=== PATIENT | female | born 1945 | race Caucasian/White ===

== ENCOUNTER 2020-01-23 08:31 | Outpatient (CLI) | payer MEDICARE, SELFPAY ==
--- NOTE | ~2020-01-23 | CT_ITS ---
EXAMINATION: CT chest wo con DATE: 01/23/2020 09:25 INDICATION: Lung nodule TECHNIQUE: Computed tomography (CT) of the chest was performed without intravenous contrast. The dose -length product was 267.65 mGy-cm. Automated exposure control and iterative reconstruction technique were employed. COMPARISON: CT dated 02/12/2019 FINDINGS: Heart size normal. There is mild atherosclerosis. Small hiatal hernia. No significant pleur al or pericardial effusion. There are cholecystectomy clips. No thoracic lymphadenopathy. There are e mphysematous changes with bulla in the lung bases. There is chronic lower lobe atelectasis/scarring. Calcified granuloma right middle lobe. There is extensive bronchial wall thickening most significant in the lower lobes, consistent with chronic bronchitis. There are chronic burst fractures of T6-T8 wi th associated kyphosis. No pneumothorax. IMPRESSION: 1. Chronic lower lobe atelectasis/scarring. 2: Persistent bronchial wall thickening, consistent with chronic bronchitis. 3: Emphysema. Reviewed, dictated and finalized at location A. RUMENT AND ELECTRICAL TECHNICIAN
--- NOTE | ~2020-01-23 | DEXA_ITS ---
Bone Density Report Name: Ankita Hernandez Age: 74 Sex: Female Ethnicity: White Date of : 1945 Indication: postmenopausal; height loss; prior fracture; rheumatoid arthritis; Referring Provider: Moriah Flaherty Study: Bone densitometry was performed. Exam Date: January 23, 2020 Accession number: [id number] Bone Density: Region BMD T-score Z-score Classification AP Spine (L1-L4) 0.962 -0.8 1.5 Normal Femoral Neck (Left) 0.778 -0.6 1.3 Normal Total Hip (Left) 0.915 -0.2 1.4 Normal Total Hip Bilateral Avg 0.869 -0.6 1.0 Normal Femoral Neck (Right) 0.757 -0.8 1.1 Normal Total Hip (Right) 0.822 -1.0 0.7 Normal World Health Organization criteria for BMD impression classify patients as: Normal (T-score at or above -1.0), Osteopenia (T-score between -1.0 and -2.5), or Osteoporosis (T-score at or below -2.5). 10-year Fracture Risk: FRAX not reported because: All T-scores for Spine Total, Hip Total, Femoral Neck at or above -1.0 Previous Exams: Region Exam Age BMD T-score BMD Change BMD Change Date g/cm2 vs Baseline vs Previous AP Spine(L1-L4) 01/23/2020 74 0.962 -0.8 -0.242(-20.1%) -0.242(-20.1%) 10/19/2001 56 1.204 1.4 Total Hip(Left) 01/23/2020 74 0.915 -0.2 -0.150(-14.1%) -0.150(-14.1%) 10/19/2001 56 1.065 1.0 Total Hip(Right) 01/23/2020 74 0.822 -1.0 -0.218(-21.0%) -0.218(-21.0%) 10/19/2001 56 1.040 0.8 *Denotes significance at 95% confidence level, LSC for AP Spine = 0.022 g/cm2, LSC for Total Hip = 0.027 g/cm2 Clinical Information Provided by Patient: Has had a low trauma fracture Has rheumatoid arthritis Patient maximum height was 67 No regular weight bearing exercise Drinks caffeinated beverages Onset of menses at age 16 Number of children 4 Impression: The patient has normal bone mass. The patient has risk factors, including: previous fracture. No significant bone loss was observed. Discussion: BONE DENSITY IS ABOVE THE MINIMUM DESIRABLE LEVEL AT ALL SKELETAL SITES TESTED. This patient?s bone mineral density is above the minimum desirable level (T-score -1.0 or better) at all sites measured. The patient should follow a healthful lifestyle (good nutrition with adequate calcium and vitamin D, and appropriate weight-bearing exercise). Follow-Up: Consider repeating this study in 5 years or sooner if there is some new clinical indication. Reported by: [facility] on 01/23/2020 8:57:00 AM.
== END 2020-01-23 08:32 | disposition home or self-care (01) ==
LOC: ANHIMG 08:39
PROVIDERS: PCP Family Medicine Adolescent Medicine
DX: R91.1 Solitary pulmonary nodule (principal); Z51.81 Encounter for therapeutic drug level monitoring; R06.02 Shortness of breath; Z79.1 Long term (current) use of non-steroidal anti-inflammatories (NSAID); Z79.01 Long term (current) use of anticoagulants; M85.89 Other specified disorders of bone density and structure, multiple sites; K44.9 Diaphragmatic hernia without obstruction or gangrene; J43.9 Emphysema, unspecified; S22.051A Stable burst fracture of T5-T6 vertebra, initial encounter for closed fracture; S22.061A Stable burst fracture of T7-T8 vertebra, initial encounter for closed fracture
CPT/HCPCS: 71250; 77080

== ENCOUNTER 2020-02-28 14:03 | Outpatient (CLI) | payer MEDICARE, SELFPAY ==
--- NOTE | 2020-02-28 | ECHO_ITS ---
Patient Info Name: Ankita Hernandez Age: 74 years : 1945 Gender: Female Ht: 65 in Wt: 165 lbs BSA: 1.87 m2 HR: 81 bpm BP: 151 / 98 mmHg Heart Rhythm: Sinus Rhythm Technical Quality: Fair Exam Date: 02/28/2020 2:40 PM Exam Location: [facility] Patient Status: Outpatient Admit Date: 02/28/2020 Staff Ordering Physician: Moriah Flaherty MD Patient Account Representative: Rosalee Stuart RDCS Attending Provider: Moriah Flaherty MD Exam Type: CA echo doppler color flow Study Info Indications - sob Complete two-dimensional, color flow and Doppler transthoracic echocardiogram is performed. Summary 1. Complete two-dimensional, color flow and Doppler transthoracic echocardiogram is performed. 2. No pulmonary hypertension, estimated pulmonary arterial systolic pressure is 29 mmHg. 3. Normal left ventricular size, thickness and function with good systolic function of all segments. Estimated ejection fraction was 55-60%. Visual ejection fraction was 62%. Grade 1 diastolic dysfunction is present. 4. Calcified aortic valve with no significant stenosis. 5. Normal sinus rhythm. Left Ventricle Left ventricular chamber dimension is normal. Left ventricular systolic function is normal, estimated at 55-60%. There is no increased left ventricular wall thickness. Left ventricular septal wall motion is normal. The left ventricular diastolic function is grade I diastolic dysfunction. Right Ventricle Right ventricular chamber dimension is normal. Right ventricular systolic function is normal. Left Atria Left atrial chamber dimension is normal. Right Atria Right atrial chamber dimension is normal. Aortic Valve The aortic valve is trileaflet. There is no aortic valve sclerosis. There is no aortic valve stenosis. There is no aortic valve regurgitation. There is mild aortic valve calcification. Pulmonic Valve The pulmonic valve is normal. There is no pulmonic valve stenosis. There is no pulmonic regurgitation. Mitral Valve The mitral valve has thickened leaflets. There is no mitral valve stenosis. There is trace mitral valve regurgitation. Tricuspid Valve The tricuspid valve leaflets are normal. There is no significant tricuspid valve stenosis. There is trace tricuspid valve regurgitation. No pulmonary hypertension, estimated pulmonary arterial systolic pressure is 29 mmHg. Pericardium/Pleural The pericardium appears normal. There is no pericardial effusion. Inferior Vena Cava Normal inferior vena cava with >50% collapse upon inspiration consistent with Empty right atrial pressure, 10 mmHg. Aorta The aortic root size at the sinus of Valsalva is normal. The prox ascending aorta size is normal. Left Ventricular Outflow Tract Name Value Normal LVOT 2D LVOT Diameter 2.0 cm LVOT Doppler LVOT Peak Gradient 3 mmHg LVOT Mean Gradient 2 mmHg LVOT VTI 19 cm LVOT VTI/AV VTI Ratio 0.8 LVOT Stroke Volume 58 ml LVOT CO
--- NOTE | 2020-02-29 14:08 | P.PCNPFT_ITS ---
PFT Interpretation This is a pulmonary function test with spirometry, plethysmography and diffusing capacity. The test was performed and results interpreted in accordance with the 2019 and 2005 ATS/ERS Task Force guidelines respectively using the Dion/Mahad reference equations. Findings: Spirometry: The contour of the inspiratory and expiratory flow tracing are no rmal. The FVC is 1.95 L, 67% predicted. The FEV1 is 1.56 L, 76% predicted. The FEV1: FVC ratio was 80%. Plethysmography: The total lung capacity is 3.31 L, 66% predicted. The functional residual capacity is 1.75 L, 63% predicted. The residual volume is 1.28 L, 63% predicted. Diffusing capacity: The absolute diffusion capacity 7.0, 34% predicted. The diffusing capacity corrected for alveolar volume is 2.47, 70% predicted. Impression: There is a mild restrictive ventilatory abnormality. The spirometry is normal without evidence of an obstructive abnormality. The absolute diffusing capacity is severely decreased and remains mildly decreased when corrected for alveolar volume. There are no prior studies for comparison
== END 2020-02-28 14:04 | disposition home or self-care (01) ==
PROVIDERS: Family Provider Family Medicine Adolescent Medicine; PCP Family Medicine Adolescent Medicine
DX: R06.02 Shortness of breath (principal); R91.1 Solitary pulmonary nodule; I35.8 Other nonrheumatic aortic valve disorders
CPT/HCPCS: 93306; 94375; 94726; 94729

== ENCOUNTER 2020-09-07 09:04 | Emergency (ER) | payer MEDICARE, SELFPAY ==
--- NOTE | ~2020-09-07 | CT_ITS ---
EXAMINATION: CT abdomen pelvis w con DATE: 09/07/2020 12:43 INDICATION: Left lower quadrant abdominal pain. TECHNIQUE: Computed tomography (CT) of the abdomen and pelvis was performed with 100 mL Omnipaque-350 intravenous contrast. Automated exposure control and iterative reconstruction technique were employe d. The dose-length product was 1053.59 mGy-cm. COMPARISON: None FINDINGS: Bronchiectasis and mild emphysema at the bilateral lower lungs. Unchanged peripheral atelectasis/scar ring the bilateral lower lobes. Heart size is normal. Atherosclerotic coronary artery calcific lesion s. No pericardial or pleural effusion. Small sliding-type hiatal hernia. Cholecystectomy clips at the gallbladder fossa. Focal hepatic steatosis at the ligamentum teres. Spleen, bilateral adrenal glands and left kidney are normal. 5 mm cyst at the lower pole of the right kidney. 9 mm cystic lesion at t he tail of the pancreas. A few scattered colonic diverticula without adjacent inflammatory change to suggest diverticulitis. No bowel obstruction. Ventral diastases. Bladder, uterus and bilateral adnexa are unremarkable. No free intraperitoneal gas or fluid. No pathologically enlarged abdominal or pelv ic lymphadenopathy. Diffuse osteopenia. Moderate thoracic spondylosis. IMPRESSION: 1. No acute intra-abdominal/pelvic process. 2. Small sliding-type hiatal hernia. 3. Mild emphysema, bronchiectasis and atelectasis at the lung bases. 4. 9 mm cystic lesion at the tail of the pancreas without evident enhancing solid soft tissue compone nt. Recommend two-year follow-up with pre and postcontrast CT or MRI. Reviewed, dictated and finalized at location A. IMPRESSION: 1. No acute intra-abdominal/pelvic process. 2. Small sliding-type hiatal hernia. 3. Mild emphysema, bronchiectasis and atelectasis at the lung bases. 4. 9 mm cystic lesion at the tail of the pancreas without evident enhancing blayne id soft tissue component. Recommend two-year follow-up with pre and postcontras t CT or MRI.
--- NOTE | ~2020-09-07 | XR_ITS ---
EXAMINATION: XR chest 1V portable DATE: 09/07/2020 10:26 INDICATION: Hypoxia TECHNIQUE: frontal view of the chest was obtained. COMPARISON: Chest radiograph dated 08/24/[address] dated 01/23/2020 FINDINGS: New opacities in the retrocardiac left lower lobe. Thin-walled pneumatocele at the lateral left lower lung zone. No pleural effusion or pneumothorax. Heart size is normal. Cholecystectomy clips in right upper quadrant. Chronic midthoracic compression fractures. IMPRESSION: 1. New opacities in the left lower lung zone which could represent pneumonia, atelectasis or asymmetr ic mild pulmonary edema. Reviewed, dictated and finalized at location A. IMPRESSION: 1. New opacities in the left lower lung zone which could represent pneumonia, a telectasis or asymmetric mild pulmonary edema.
[2020-09-07 09:02] VITALS: BP 158/80; PULSE 114; RESP 30; TEMP 36.4; O2SAT 84
--- NOTE | 2020-09-07 09:10 | ECG_ITS ---
Measurements Intervals [place] Rate: 113 P: -5 FL: 138 QRS: 21 QRSD: 84 T: 1 QT: 312 QTc: 429 Interpretive Statements SINUS TACHYCARDIA BORDERLINE ST-T WAVE ABNORMALITY- INFERIOR LEADS BASELINE ARTIFACT- I, III, AVR, AVL ABNORMAL ECG Electronically Signed On 09-07-2020 11:46:20 CDT by Ponce Rodriguez D.O.
--- NOTE | 2020-09-07 09:24 | PC.NURSE ---
pt states Get me water right now! Informed pt she can not have water per EDP until test complete due to n/v. Pt took nasal cannula off. When RN attempt to put nasal cannula on pt smacked RN hand. States she will not wear O2. Informed pt need for o2. States i know but I wont till you give me water. Pt refuses to wear mask. Informed pt risks to staff due to pt being positive for COVID. Pt states i dont care. Give me water.
--- NOTE | 2020-09-07 09:42 | PC.NURSE ---
pt alert and oriented x4, answered all questions appropriately. Took cardiac monitor technician and nasal cannula off. informed pt importance of monitoring and 02. pt allowed me apply o2 via nasal cannula and place back on monitor. pt then yelled, now get me water.! pt refuses to get cxr again until she is given water
[2020-09-07 09:45] VITALS: BP 130/70; PULSE 109; RESP 32; O2SAT 95
[2020-09-07 10:08] LABS: Basophils Percent Auto 0.2 % (0.2-1.2); Eosinophils Percent Auto 0.2 % (0-4.4); Hematocrit 36.9 % (37.0-47.0); Hemoglobin 10.7 g/dL (12.0-15.0); Immature Granulocyte Absolute 0.06 K/mm3 (0.00-0.031); Immature Granulocyte Percent A 0.7 % (0-0.5); Lymphocytes Absolute Auto 1.56 K/mm3 (0.9-3.2); Lymphocytes Percent Auto 17.9 % (18.3-44.2); Mean Corpuscular Hemoglobin 21.2 pg (26-34); Mean Corpuscular Volume 73.1 fl (80-100); Mean Platelet Volume 8.8 fl (7.4-10.4); Monocytes Absolute Auto 0.5 K/mm3 (0.1-0.6); Monocytes Percent Auto 5.8 % (2.6-8.5); Neutrophils Absolute Auto 6.6 K/mm3 (1.3-6.7); Neutrophils Percent Auto 75.2 % (45.5-73.1); Platelet Count Result 297 k/mm3 (150-375); Red Blood Count 5.05 M/mm3 (4.2-5.4); Red Cell Distribution Width 19.9 % (11.5-14.5); White Blood Count 8.7 K/mm3 (4.5-10.0)
[2020-09-07 10:18] VITALS: BP 151/79; PULSE 112; RESP 30; O2SAT 95
[2020-09-07 10:21] LABS: Hypochromasia 1+ (NORMAL); Platelet Estimate Adequate (Adequate)
[2020-09-07 10:22] LABS: Anisocytosis 1+ (NORMAL); Ovalocytes 1+ (NORMAL)
[2020-09-07 10:29] LABS: Alanine Aminotransferase 25 U/L (4-35); Albumin Level 3.2 g/dL (3.5-5.1); Alkaline Phosphatase 65 U/L (38-126); Anion Gap 9 mmol/L (8-16); Aspartate Amino Transferase 53 U/L (14-36); Bilirubin,Total 0.4 mg/dL (0.2-1.3); Blood Urea Nitrogen 16 mg/dL (7-17); Carbon Dioxide 22 mmol/L (22-30); Chloride 99 mmol/L (98-107); Estimated CRCL calculation 48 ml/min; Estimated Glomerular Filt Rate > 60; Glucose 139 mg/dL (65-110); Lipase 146 U/L (23-300); Potassium 3.8 mmol/L (3.4-5.0); Sodium 130 mmol/L (137-145)
[2020-09-07] MEDS: SODIUM CHLORIDE 0.9% IV 1,000 ML 999 ML IV CONT (10:59)
[2020-09-07 11:08] VITALS: BP 143/77; PULSE 106; RESP 30; O2SAT 95
[2020-09-07 11:10] LABS: Alveolar/Arterial O2 Gradient 64.8 mmHg; Base Excess ABG -2.2 mEq/l (+/-2.0); Carboxyhemoglobin 0.3 % THb (0-2.0); Device NASAL CANNULA; Fractional Inspired Oxygen 28 %; HCO3 ABG 21.7 mEq/l (22.0-26.0); Methemoglobin ABG 0.2 %THb (0-1.5); Modified Allen's Test Pass; Oxygen Content ABG 15.5 %vol (16.0-22.0); Oxygen Saturation ABG 97.4 % (95.0-100.0); Oxyhemoglobin 96.5 % THb (90.0-100.0); PCO2 ABG 34.3 mmHg (35.0-45.0); PO2 ABG 94.4 mmHg (80.0-100.0); PO2 FiO2 Ratio Arterial Blood 3.37 %; Site Drawn LEFT RADIAL; Total Hemoglobin 11.3 g/dL (12.0-18.0)
[2020-09-07 11:24] LABS: Lactic Acid Reflex 1.4 mmol/L (0.7-2.1)
--- NOTE | 2020-09-07 12:56 | ED.GENADULT ---
HPI - General Adult General Chief complaint: Abdominal Pain Stated complaint: low back pain & abd pain Time Seen by Provider: 09/07/20 10:16 Source: patient, EMS and RN notes reviewed Mode of arrival: EMS Limitations: no limitations History of Present Illness HPI narrative: Patient is a 75-year-old female who presents with cough abdominal pain over the last several days she notes that her is at home and has positive Covid she and her are both fully vaccinated she notes nonproductive cough as well as had an emesis of emesis and abdominal discomfort. Denies rectal bleeding or hematemesis Related Data Allergies Allergy/AdvReac Type Severity Reaction Status Date / Time bacitracin Allergy Unknown OPHTHALMIC Verified 09/07/20 09:16 gramicidin D Allergy Unknown OPHTHALMIC Verified 09/07/20 09:16 neomycin Allergy Unknown OPHTHALMIC Verified 09/07/20 10:50 polymyxin B Allergy Unknown OPHTHALMIC Verified 09/07/20 09:16 tobramycin Allergy Unknown Unknown Verified 09/07/20 10:50 Review of Systems Review of Systems: All systems reviewed & are unremarkable except as noted in HPI and below PMFSH Past Medical History Medical History (Updated 09/07/20 @ 13:55 by Usman Amaya PA-C) Disability Legally blind Obesity Social History Social History (Updated 09/07/20 @ 12:57 by Usman Amaya PA-C) Smoking status: Never smoker Gender identity (if verbalized by the patient): Female Exam Narrative: GENERAL: Well-appearing, well-nourished, and in no acute distress. HEAD: Normocephalic, atraumatic. EYES: PERRLA and EOMI. ENT: Nares clear, no rhinorrhea or epistaxis. Mucous membranes dry. NECK: Supple. No adenopathy or masses. CHEST: Clear to auscultation. No respiratory distress. No wheezes rales or rhonchi HEART: Regular rate and rhythm. No murmur heard. Normal peripheral pulses. ABDOMEN: Soft, left lower quadrant tenderness to palpation, nondistended EXTREMITIES: Normal range of motion. No edema. SKIN: Warm, dry, no rash. NEURO: No focal deficits. Alert and oriented x3. Cranial nerves II through XII grossly intact PSYCH: Normal mood and affect. Course Course Emergency Course: Patient in the room no distress aware of case findings treatment plan diagnosis felt appropriate for outpatient reevaluation discussion was made with primary care who will follow the patient acutely family will also assess she is afebrile nontoxic-appearing no distress and felt appropriate for outpatient reevaluation has been provided with reasons to return. Patient refusing to be on the monitor have further evaluation at this time Consultations Consultation #1: Discussed case with primary care who will follow up with the patient on an outpatient basis Date: 09/07/20 Time: 13:53 Vital Signs Vital signs: Vital Signs Temperature 97.6 F 09/07/20 09:02 Pulse Rate 114 H 09/07/20 09:02 Respiratory Rate 30 H 09/07/20 09:02 Blood Pressure 158/80 H 09/07/20 09:02 Pulse Oximetry 84 L 09/07/20 09:02 Temperature 97.6 F 09/07/20 09:02 Pulse Rate 106 H 09/07/20 11:08 Respiratory Rate 30 H 09/07/20 11:08 Blood Pressure 143/77 H 09/07/20 11:08 Pulse Oximetry 95 09/07/20 11:08 Medical Decision Making [facility] Narrative Medical decision making narrative: Patient evaluated the emergency department will be treated for pneumonia Covid testing pending will follow with primary care will be discharged home with family and given reasons to return advised to purchase home oximeter to watch the oxygenation and if any vomiting or worsening scenario to return Vital Signs Vital Signs: Vital Signs Temperature 97.6 F 09/07/20 09:02 Pulse Rate 114 H 09/07/20 09:02 Respiratory Rate 30 H 09/07/20 09:02 Blood Pressure 158/80 H 09/07/20 09:02 Pulse Oximetry 84 L 09/07/20 09:02 Temperature 97.6 F 09/07/20 09:02 Pulse Rate 106 H 09/07/20 11:08 Respiratory Rate 30 H 09/07/20 11:08 Blood Pressure 143/77 H 08/0
--- NOTE | 2020-09-07 13:56 | PC.NURSE ---
PT PULLED IV OUT. PT YELLED GET ME HOME NOW! SON AT BEDSIDE TRYING TO CALM PT DOWN. PT YELLS GET ME WATER NOW. PT ALERT AND ORIENTED. ATTEPMTED TO RECHECK PT VITAL SIGNS, PT REFUSED. INFORMED PT OF NEED TO REASSESS FOR HER SAFETY. PT REFUSES. SON AT BEDSIDE AND STATES HE WILL TAKE PT HOME. PT AND FAMILY VERBALIZES UNDERSTANDING. PROVIDER NOTIFIED.
[2020-09-08 13:59] LABS: SARS-CoV-2 RNA PCR Positive
== END 2020-09-07 14:24 | disposition home or self-care (01) ==
PROVIDERS: Emergency Medicine Emergency Medical Services; Emergency Provider Emergency Medicine; PCP Family Medicine Adolescent Medicine
DX: U07.1 COVID-19 (principal); J12.82 Pneumonia due to coronavirus disease 2019; H54.8 Legal blindness, as defined in USA; R00.0 Tachycardia, unspecified; R94.31 Abnormal electrocardiogram [ECG] [EKG]; K86.9 Disease of pancreas, unspecified; K44.9 Diaphragmatic hernia without obstruction or gangrene
CPT/HCPCS: 36415; 36600; 71045; 74177; 80053; 82375; 82805; 83050; 83605; 83690; 85025; 87040; 93005; 96360; 96361; 99284; C9803; J7030; Q9967; U0003; U0005

== ENCOUNTER 2021-05-08 17:08 | Observation (INO) | payer MEDICARE, SELFPAY ==
--- NOTE | ~2021-05-08 | CT_ITS ---
EXAMINATION: CT abdomen pelvis w con DATE: 05/08/2021 19:08 INDICATION: Abdominal pain. Vomiting. TECHNIQUE: Computed tomography (CT) of the abdomen and pelvis was performed with 100 mL Omnipaque 350 intravenous contrast. Automated exposure control and iterative reconstruction technique were employe d. The dose-length product was 1501.72 mGy-cm. COMPARISON: CT abdomen and pelvis 09/07/2020 FINDINGS: The visualized portions of the lung bases demonstrate mild emphysema and mild atelectasis. No pleural effusion. The heart size is normal. There are coronary artery calcifications. No pericardi al effusion. Mediastinal lipomatosis is noted. The liver and spleen are normal. There are changes of cholecystectomy. The pancreas and adrenal glands are normal. There is cortical thinning of the kidney s. There is a 10 mm cyst in right kidney. There are no dilated loops of bowel. There is diverticulosi s of the colon without evidence of diverticulitis. The appendix is not visualized. There is a small s liding hiatal hernia. There are no pathologically enlarged lymph nodes. There is no free intraperiton eal fluid. There is severe lumbar spondylosis. There are chronic burst fractures of T7 and T8. IMPRESSION: 1. Small sliding hiatal hernia. 2. Emphysema. Reviewed, dictated and finalized at location A.
--- NOTE | ~2021-05-08 | XR_ITS ---
XR chest 1V portable DATE: 05/08/2021 18:03 INDICATION: Cough, shortness of breath, nausea and vomiting for 3 days TECHNIQUE: Portable upright AP view on 05/08/2021 at 1756 hours COMPARISON: 09/07/2020 portable supine AP chest at 1020 hours FINDINGS: Heart size appears within normal limits. There is pulmonary vascular congestion and redistr ibution. There is mild discoid atelectasis or scarring in the lower lung zones. No pulmonary consolid ation is evident. No pleural effusion or pneumothorax. There is aortic calcification and unfolding. Diffuse osteopenia. IMPRESSION: Mild discoid atelectasis and/or scarring in the lower lung zones Mild pulmonary vascular congestion Reviewed, dictated and finalized at location A.
[2021-05-08 17:20] VITALS: BP 154/113; PULSE 118; RESP 18; TEMP 36.8; O2SAT 98
[2021-05-08 17:45] VITALS: BP 112/88; PULSE 102; RESP 20; O2SAT 99
--- NOTE | 2021-05-08 17:51 | ECG_ITS ---
Measurements Intervals [place] Rate: 112 P: 15 AR: 148 QRS: 23 QRSD: 76 T: 22 QT: 327 QTc: 447 Interpretive Statements SINUS TACHYCARDIA BORDERLINE ECG COMPARED TO ECG 09/07/2020 09:14:18 NO SIGNIFICANT CHANGES Electronically Signed On 05-09-2021 16:35:27 CDT by Omar Keen M.D.
--- NOTE | 2021-05-08 17:52 | ED.NAVMDI ---
HPI - Nausea/Vomiting/Diarrhea General Chief complaint: Nausea/Vomiting/Diarrhea <Zaida Parnell PA-C - Last Filed: 05/08/21 21:32> Stated complaint: N/V - SOB, bed bound <Zaida Parnell PA-C - Last Filed: 05/08/21 21:32> Time Seen by Provider: 05/08/21 17:28 <Zaida Parnell PA-C - Last Filed: 05/08/21 21:32> Source: patient <MARY JANE Prince Last Filed: 05/08/21 21:32> Mode of arrival: EMS <MARY JANE Prince Last Filed: 05/08/21 21:32> Limitations: no limitations <MARY JANE Prince Last Filed: 05/08/21 21:32> History of Present Illness HPI Narrative: This is a 75-year-old female that presents to the emergency department for nausea and vomiting ongoing over the last couple of days. Associated with some diarrhea and myalgias. Reports similar symptoms in her . Also reports some congestion and feeling short of breath today. Denies fever, chest pain, or lower extremity edema. <Zaida Parnell PA-C - Last Filed: 05/08/21 21:32> Related Data Home medications: Home Medications Medication Instructions Recorded Confirmed apixaban [Eliquis] 5 mg PO BID 05/08/21 05/08/21 gabapentin 100 mg PO DAILY 05/08/21 05/08/21 lorazepam 0.5 mg PO BID 05/08/21 05/08/21 metoprolol tartrate 50 mg PO BID 05/08/21 05/08/21 pantoprazole 40 mg PO DAILY 05/08/21 05/08/21 prednisone 10 mg PO DAILY 05/08/21 05/08/21 <MARY JANE Prince Last Filed: 05/08/21 21:32> Allergies/Adverse reactions: Allergies Allergy/AdvReac Type Severity Reaction Status Date / Time bacitracin Allergy Unknown OPHTHALMIC Verified 05/08/21 17:26 gramicidin D Allergy Unknown OPHTHALMIC Verified 05/08/21 17:26 neomycin Allergy Unknown OPHTHALMIC Verified 05/08/21 17:26 polymyxin B Allergy Unknown OPHTHALMIC Verified 05/08/21 17:26 tobramycin Allergy Unknown Unknown Verified 05/08/21 17:26 <Zaida Parnell PA-C - Last Filed: 05/08/21 21:32> Review of Systems Review of Systems: CONSTITUTIONAL: Denies fever ENT: Reports congestion CARDIOVASCULAR: Denies chest pain, or edema. RESPIRATORY: Reports cough and dyspnea. GASTROINTESTINAL: Reports abdominal pain, nausea, vomiting, and diarrhea. GENITOURINARY: Denies dysuria <Zaida Parnell PA-C - Last Filed: 05/08/21 21:32> All systems reviewed & are unremarkable except as noted in HPI and below <Zaida Parnell PA-C - Last Filed: 05/08/21 21:32> [facility] Past Medical History Medical History: Medical History (Updated 05/08/21 @ 21:23 by Zaida Parnell PA-C) Disability History of gastroesophageal reflux (GERD) Legally blind Obesity <Zaida Parnell PA-C - Last Filed: 05/08/21 21:32> Social History Social History: Social History (Updated 09/07/20 @ 12:57 by Usman Amaya PA-C) Smoking status: Never smoker Gender identity (if verbalized by the patient): Female <Zaida Parnell PA-C - Last Filed: 05/08/21 21:32> Exam Narrative: GENERAL: Well-appearing, well-nourished, and in no acute distress. HEAD: Normocephalic, atraumatic. ENT: Mucous membranes dry. Oropharynx without tonsillar hypertrophy exudate or other lesions. NECK: Supple. No adenopathy or masses. CHEST: Clear to auscultation. No respiratory distress. No wheezes rales or rhonchi HEART: Regular rate and rhythm. No murmur heard. Normal peripheral pulses. ABDOMEN: Soft, nontender, nondistended, normal active bowel sounds. EXTREMITIES: Normal range of motion. No edema. SKIN: Warm, dry, no rash. NEURO: No focal deficits. Alert and oriented x3. PSYCH: Normal mood and affect <Zaida Parnell PA-C - Last Filed: 05/08/21 21:32> Course FRONT OFFICE JAVA DEVELOPER/PA Physician Supervision For this patient encounter, I reviewed the FRONT OFFICE JAVA DEVELOPER or PA documentation, treatment plan, and medical decision making; and I had [id number] time with this patient. <Minal Lechuga MD - Last Filed: 05/08/21 20:53> Vital Signs Vital signs: Vital Signs Temperature 98.3 F
[2021-05-08] MEDS: SODIUM CHLORIDE 0.9% IV 500 ML 999 ML IV CONT ×2 (18:07→20:25)
[2021-05-08 18:08] LABS: Basophils Percent Auto 0.3 % (0.2-1.2); Eosinophils Percent Auto 0.3 % (0-4.4); Hematocrit 41.2 % (37.0-47.0); Hemoglobin 13.1 g/dL (12.0-15.0); Immature Granulocyte Absolute 0.22 K/mm3 (0.00-0.031); Immature Granulocyte Percent A 1.9 % (0-0.5); Lymphocytes Absolute Auto 0.97 K/mm3 (0.9-3.2); Lymphocytes Percent Auto 8.3 % (18.3-44.2); Mean Corpuscular HGB Conc 31.8 g/dl (32-36); Mean Corpuscular Hemoglobin 26.8 pg (26-34); Mean Corpuscular Volume 84.4 fl (80-100); Mean Platelet Volume 9.4 fl (7.4-10.4); Monocytes Absolute Auto 0.4 K/mm3 (0.1-0.6); Monocytes Percent Auto 3.3 % (2.6-8.5); Neutrophils Absolute Auto 10.1 K/mm3 (1.3-6.7); Neutrophils Percent Auto 85.9 % (45.5-73.1); Platelet Count Result 350 k/mm3 (150-375); Red Blood Count 4.88 M/mm3 (4.2-5.4); Red Cell Distribution Width 18.4 % (11.5-14.5); White Blood Count 11.7 K/mm3 (4.5-10.0)
[2021-05-08] MEDS: ONDANSETRON INJ 4 MG/2 ML VIAL IV PUSH (18:08)
[2021-05-08] MEDS: FAMOTIDINE 20 MG/2 ML VIAL IV PUSH (18:08)
[2021-05-08 18:22] LABS: Alanine Aminotransferase 34 U/L (4-35); Albumin Level 3.4 g/dL (3.5-5.1); Alkaline Phosphatase 84 U/L (38-126); Anion Gap 9 mmol/L (8-16); Aspartate Amino Transferase 52 U/L (14-36); Bilirubin,Total 0.7 mg/dL (0.2-1.3); Blood Urea Nitrogen 20 mg/dL (7-17); Calcium 8.3 mg/dL (8.4-10.2); Carbon Dioxide 21 mmol/L (22-30); Chloride 98 mmol/L (98-107); Estimated CRCL calculation 77 ml/min; Estimated Glomerular Filt Rate > 60; Glucose 174 mg/dL (65-110); Lipase 58 U/L (23-300); Potassium 3.8 mmol/L (3.4-5.0); Sodium 128 mmol/L (137-145)
[2021-05-08 18:23] LABS: Lactic Acid Reflex 2.4 mmol/L (0.7-2.1)
[2021-05-08 19:24] LABS: Influenza A QL RT-PCR Negative (Negative); Influenza B QL RT-PCR Negative (Negative); SARS-CoV-2 RNA PCR Negative
[2021-05-08 19:44] VITALS: BP 128/73; PULSE 105; RESP 18; O2SAT 98
[2021-05-08 20:00] LABS: Add Urine Microscopic? YES; Appearance Urine Clear (Clear); Bilirubin Urine Negative (Negative); Blood Urine 2+ (Negative); Color Urine Yellow (Yellow); Glucose Urine UA Negative (Negative); Ketones Urine 1+ mg/dL (Negative); Leukocyte Esterase Ur Negative LEU/UL (Negative); Mucus Urine Rare /lpf; Nitrate Urine Negative (Negative); Protein Urine 1+ mg/dL (Negative); RBC Urine >75 /hpf (0-2); Squamous Epithelial Cell Urine Rare /hpf (Few); Urobilinogen Urine Negative mg/dL (<2.0)
[2021-05-08 20:05] LABS: Specific Grav Ur 1.041 (1.001-1.035)
--- NOTE | 2021-05-08 20:49 | PM.IMHP ---
H&P: HPI History of Present Illness Date/Time: 05/08/21 20:49 Chief Complaint: Nausea and vomiting. Narrative: This is a 75-year-old female with past medical history significant for obesity, osteoporosis, peripheral diabetic neuropathy, hypertension, GERD, blindness, homebound. Patient was brought to the emergency room due to nausea and vomiting ongoing for several days patient also complains that she is unable to swallow is only able to swallow small amounts of fluids. History taking is on how limited as patient is blind she denies any pain ,any chills, fevers, rigors, no cough, no sputum production, no shortness of breath, no abdominal pain. Preliminary workup was significant for sodium [address] of abdomen and pelvis did not show any acute intra-abdominal small sliding hiatal hernia emphysema, abnormalities and a chest x-ray was significant for pulmonary vascular congestion and discoid atelectasis. Patient is being admitted for further evaluation management and treatment. Review of Systems Review of Systems: Nausea, vomiting, difficulty swallowing. Constitutional: Constitutional: Denies chills, Denies fever(s) and Denies malaise Eyes: Comments: Blindness, infection of the eyes ENT: Reports dysphagia, Denies nasal congestion, Denies nasal discharge, Denies nasal obstruction and Denies odynophagia Cardiovascular: Cardiovascular: Denies chest pain at rest Respiratory: Respiratory: Reports cough, Denies excessive phlegm production, Denies dyspnea and Denies wheezing Gastrointestinal: Gastrointestinal: Denies abdominal pain, Reports nausea and Reports vomiting Genitourinary: Genitourinary: Denies dysuria Musculoskeletal: Musculoskeletal: Denies arthralgias Integumentary/Breasts: Skin/Breast: Denies rash Neurologic: Denies focal weakness and Denies Sensory deficit (Neuro) Psychiatric: Psychiatric: Reports no additional psychiatric complaints and Reports as per HPI Endocrine: Endocrine: Denies cold intolerance, Denies heat intolerance, Denies polydipsia and Denies palpitations Hematologic/Lymphatic: Hematologic/Lymphatic: Reports no additional hematologic/lymphatic complaints and Reports as per HPI Allergic/Immunologic: Allergic/Immunologic: Reports no additional allergic/immunologic complaints and Reports as per HPI [facility] Past Medical History Medical History (Updated 05/09/21 @ 04:36 by Vamsi Carter MD) Disability History of gastroesophageal reflux (GERD) Legally blind Obesity Family History Family History (Updated 05/09/21 @ 00:46 by Evelia Ignacio RN) Other Unknown family medical history Social History Social History (Updated 09/07/20 @ 12:57 by Usman Amaya PA-C) Smoking status: Never smoker Alcohol intake: never Substance use: current Substance use type: marijuana Gender identity (if verbalized by the patient): Female Spiritual care concerns: No Meds Home Medications and Allergies Home Medications Medication Instructions Recorded Confirmed Type apixaban [Eliquis] 5 mg PO BID 05/08/21 05/09/21 History fluticasone propionate 50 mcg INTRANASAL DAILY 05/08/21 05/09/21 History gabapentin 100 mg PO DAILY 05/08/21 05/09/21 History lorazepam 0.5 mg PO BID 05/08/21 05/09/21 History metoprolol tartrate 50 mg PO BID 05/08/21 05/09/21 History pantoprazole 40 mg PO DAILY 05/08/21 05/09/21 History alendronate 70 mg PO WEEKLY 05/09/21 05/09/21 History Allergies Allergy/AdvReac Type Severity Reaction Status Date / Time bacitracin Allergy Unknown OPHTHALMIC Verified 05/08/21 23:42 gramicidin D Allergy Unknown OPHTHALMIC Verified 05/08/21 23:42 neomycin Allergy Unknown OPHTHALMIC Verified 05/08/21 23:42 polymyxin B Allergy Unknown OPHTHALMIC Verified 05/08/21 23:42 tobramycin Allergy Unknown Unknown Verified 05/08/21 23:42 Vital Signs Vital Signs - 24 hr 05/08/21 17:20 05/08/21 17:45 05/08/21 19:44 Temperature 98.3 F Pulse Rate 118 H 102 H 105 H Respira
[2021-05-08 21:05] LABS: Reflex Lactic Acid Yes or No Add Lactic
[2021-05-08] MEDS: diphenhydrAMINE HCl INJ 50 MG/ML VIAL 25 MG IV PUSH (21:48)
[2021-05-08] MEDS: METOCLOPRAMIDE HCL INJ 10 MG/2 ML VIAL IV PUSH (21:48)
[2021-05-08 22:02] VITALS: BP 128/68; PULSE 111; RESP 18; O2SAT 98
[2021-05-08 22:57] VITALS: PULSE 112; RESP 18; O2SAT 98
--- NOTE | 2021-05-08 23:10 | ADMGEN ---
This patient, Ankita Hernandez, was admitted to Medical Room 347-. Patient/family oriented to hospital policies and general routines including ID bracelet, bed and alarms, visiting hours, pain management, procedures, bathroom and other care routines, personal items, smoking policy, room service/diet, and visiting hours. Information on how to activate the Rapid Response Team has been discussed. Patient/Family are encouraged to report perceived risks to care and to ask questions if they do not understand what they are told or what they should do.
[2021-05-08 23:31] VITALS: BP 149/82; PULSE 110; RESP 20; TEMP 36.1; O2SAT 96
[2021-05-08 23:32] VITALS: BMI 38.6
[2021-05-09] VITALS (11 sets, daily range): BP systolic 132–148; BP diastolic 81–84; PULSE 92–116; RESP 14–20; TEMP 36.2–36.6; O2SAT 96–98
[2021-05-09 00:37] LABS: Lactic Acid 1.5 mmol/L (0.7-2.1)
[2021-05-09] MEDS: ONDANSETRON INJ 4 MG/2 ML VIAL IV PUSH ×2 (03:28→11:54)
[2021-05-09] MEDS: SALINE 0.65% NAS SOLN 44 ML BTL 1 SPRAY NASAL (03:29)
[2021-05-09] MEDS: LORazepam (*CRX) 0.5 MG TABLET PO ×2 (08:10→16:39)
[2021-05-09] MEDS: FLUTICASONE PROPIONATE 0.05% NA SPR 16 GM BTL (*BKC) 2 SPRAY NASAL (08:10)
[2021-05-09] MEDS: METOPROLOL TARTRATE 50 MG TAB PO ×2 (08:11→20:49)
[2021-05-09] MEDS: APIXABAN 5 MG TABLET PO ×2 (08:12→16:39)
[2021-05-09] MEDS: GABAPENTIN 100 MG CAPSULE PO (08:12)
[2021-05-09] MEDS: PANTOPRAZOLE 40 MG TABLET PO (08:12)
[2021-05-09 08:37] LABS: Basophils Percent Auto 0.4 % (0.2-1.2); Eosinophils Absolute Auto 0.1 K/mm3 (0-0.3); Eosinophils Percent Auto 1.3 % (0-4.4); Hematocrit 39.7 % (37.0-47.0); Hemoglobin 12.2 g/dL (12.0-15.0); Immature Granulocyte Absolute 0.09 K/mm3 (0.00-0.031); Immature Granulocyte Percent A 1.2 % (0-0.5); Lymphocytes Absolute Auto 1.94 K/mm3 (0.9-3.2); Lymphocytes Percent Auto 25.7 % (18.3-44.2); Mean Corpuscular HGB Conc 30.7 g/dl (32-36); Mean Corpuscular Hemoglobin 26.7 pg (26-34); Mean Corpuscular Volume 86.9 fl (80-100); Monocytes Absolute Auto 0.9 K/mm3 (0.1-0.6); Monocytes Percent Auto 12.1 % (2.6-8.5); Neutrophils Absolute Auto 4.5 K/mm3 (1.3-6.7); Neutrophils Percent Auto 59.3 % (45.5-73.1); Platelet Count Result 294 k/mm3 (150-375); Red Blood Count 4.57 M/mm3 (4.2-5.4); Red Cell Distribution Width 18.3 % (11.5-14.5); White Blood Count 7.6 K/mm3 (4.5-10.0)
[2021-05-09 08:51] LABS: Alanine Aminotransferase 27 U/L (4-35); Alkaline Phosphatase 73 U/L (38-126); Anion Gap 7 mmol/L (8-16); Aspartate Amino Transferase 33 U/L (14-36); Bilirubin,Total 0.4 mg/dL (0.2-1.3); Blood Urea Nitrogen 15 mg/dL (7-17); Carbon Dioxide 23 mmol/L (22-30); Chloride 101 mmol/L (98-107); Estimated CRCL calculation 86 ml/min; Estimated Glomerular Filt Rate > 60; Glucose 122 mg/dL (65-110); Potassium 3.5 mmol/L (3.4-5.0); Sodium 131 mmol/L (137-145)
--- NOTE | 2021-05-09 09:13 | PM.IMPN ---
Progress Note: A&P Assessment and Plan (1) Intractable nausea and vomiting: Code(s): R11.2 - Nausea with vomiting, unspecified Status: Acute Assessment and Plan: Vomiting has resolve and nausea has significnatly improved. Planned for discharge. (2) Acute dehydration: Code(s): E86.0 - Dehydration Status: Acute Assessment and Plan: Given 500 ml bolus x2 in ED. CT A/P did not show any colitis or acute intraabdominal process w/ patient reporting improvement of symptoms. -Discharge to home -Already has prescription for zofran but will give 30 tabs to last until PCP follow up (3) Acute hyponatremia: Code(s): E87.1 - Hypo-osmolality and hyponatremia Status: Acute Assessment and Plan: Improved with rehydration and will likely resolve after diuresis (4) Dysphagia: Code(s): R13.10 - Dysphagia, unspecified Status: Acute Assessment and Plan: Speech therapy was consulted and recommended diet as tolerated. 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 (6) History of gastroesophageal reflux (GERD): Code(s): Z87.19 - Personal history of other diseases of the digestive system Status: Inactive Assessment and Plan: Home PPI continued. Subjective Date/time seen: 05/09/21 09:13 Patient say she feels better and is no longer dry heaving. Patient says she had difficulty swallowing beause she was constantly dry heaving and nauseated, so she could not bring herself to swallow any food. Patient say she has had diarrhea this morning. Per nursing, patient has not had diarrhea this morning. Review of Systems Gastrointestinal: Gastrointestinal: Reports diarrhea and Denies vomiting Objective Data Vital Signs Vital Signs: Vital Signs - 24 hr 05/09/21 12:06 05/09/21 16:05 05/09/21 17:18 Temperature Pulse Rate 92 95 96 Respiratory Rate 14 Blood Pressure 132/83 Pulse Oximetry 96 05/09/21 20:00 05/09/21 20:47 05/09/21 20:49 Temperature 97.2 F L Pulse Rate 102 H 104 H 101 H Respiratory Rate 20 Blood Pressure 141/81 H Pulse Oximetry 98 05/10/21 00:00 05/10/21 04:39 05/10/21 05:58 Temperature 97.8 F Pulse Rate 87 96 96 Respiratory Rate 20 Blood Pressure 143/76 H Pulse Oximetry 96 05/10/21 08:25 Temperature Pulse Rate 100 Respiratory Rate Blood Pressure Pulse Oximetry Intake/Output Intake/Output: Intake & Output 05/07/21 05/08/21 05/09/21 05/10/21 23:59 23:59 23:59 23:59 Intake Total 1000 670 750 Balance 1000 670 750 Meds/Results Medications: Active Medications Generic Name Dose Route Start Last Admin Trade Name Freq PRN Reason Stop Dose Admin Acetaminophen 650 mg 05/09/21 15:36 Acetaminophen 325 Mg Tablet PO Q6H PRN Mild Pain (1-3) Alendronate Sodium 70 mg 05/14/21 06:30 Alendronate Sodium 70 Mg Tablet PO Th@0630 DAYSI Apixaban 5 mg 05/09/21 09:00 05/10/21 08:25 Apixaban 5 Mg Tablet PO 5 mg BID DAYSI Administration Artificial Tears 1 drop 05/09/21 15:47 Artificial Tears Ophth Soln 15 Ml Bottle EACH EYE QID PRN Dry Eye(s) Diphenhydramine HCl 25 mg 05/09/21 15:36 Diphenhydramine Hcl Cap 25 Mg Capsule PO BID PRN nasal drip Fluticasone Propionate 2 spray 05/09/21 09:00 05/10/21 08:25 Fluticasone Propionate 0.05% Na Spr 16 Gm Btl (*Bkc) NASAL 2 spray DAILY DAYSI Administration Gabapentin 100 mg 05/09/21 09:00 05/10/21 08:25 Gabapentin 100 Mg Capsule PO 100 mg DAILY DAYSI Administration Guaifenesin 200 mg 05/09/21 15:36 Guaifenesin 200 Mg/10 Ml Udc PO BID PRN Cough Ibuprofen 200 mg 05/09/21 17:00 05/10/21 08:25 Ibuprofen 200 Mg Tablet PO 200 mg BIDWM DAYSI Administration Lorazepam 0.5 mg 05/09/21 09
--- NOTE | 2021-05-09 15:46 | PM.DS ---
DS: Admitting Diagnosis Discharge Date 05/09/2021 Admitting Diagnosis Dehydration, nausea and vomiting DS: Discharge Diagnosis Discharge Diagnosis (1) Intractable nausea and vomiting: Code(s): R11.2 - Nausea with vomiting, unspecified Status: Acute Assessment and Plan: S/P (2) Acute dehydration: Code(s): E86.0 - Dehydration Status: Acute Assessment and Plan: Given 500 ml bolus x2 in ED. CT A/P did not show any colitis or acute intraabdominal process w/ patient reporting improvement of symptoms. -Discharge to home -Already has prescription for zofran but will give 30 tabs to last until PCP follow up (3) Acute hyponatremia: Code(s): E87.1 - Hypo-osmolality and hyponatremia Status: Acute Assessment and Plan: Improved with rehydration and will likely resolve after diuresis (4) Dysphagia: Code(s): R13.10 - Dysphagia, unspecified Status: Acute Assessment and Plan: Speech therapy was consulted and recommended diet as tolerated. 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 (6) History of gastroesophageal reflux (GERD): Code(s): Z87.19 - Personal history of other diseases of the digestive system Status: Inactive Assessment and Plan: Home PPI continued. DS: Summary Hospital Course Hospital Course: 75F with a past medical history of genetic blindness, GERD, hypertension, peripheral diabetic neuropathy, home bound who presented to the ED with intractable nausea and vomiting. Lactic acid was elevated. Patient also reported inability to swallow, so PHYSICIAN OFFICE CLIN ASST was consulted and recommended diet as tolerated. Patient reported her difficulty swallowing was actually due to her constant retching and feeling so nauseated that she could not bring herself to swallow anything. This significantly improved on 05/09. Lactic acid resolved and serum sodium improved after hydration. Patient discharged to home. Time Spent with Patient Time attestation: Total time spent providing and/or coordinating discharge services: Exam Narrative: GENERAL: NAD, cooperative HEENT: Normocephalic, atraumatic, eyes closed during visit NECK: Supple CV: Normal S1, S2, RRR, No MRG RESP: CTAB, Normal work of breathing. Abdomen: Soft, non-tender, non-distended, +BS EXTREMITIES: Warm and well perfused, no clubbing, cyanosis SKIN: warm, dry and intact. NEURO: CN 2 deficit - has genetic blindness DS: Data Data Completed and Pending Labs on day of discharge: Labs from last 24 hours 05/09/21 05/09/21 05/09/21 08:28 08:28 00:05 WBC 7.6 RBC 4.57 Hgb 12.2 Hct 39.7 MCV 86.9 MCH 26.7 MCHC 30.7 L RDW 18.3 H Plt Count 294 MPV 9.0 Immature Gran % (Auto) 1.2 H Neut % (Auto) 59.3 Lymph % (Auto) 25.7 Pine % (Auto) 12.1 H Eos % (Auto) 1.3 Baso % (Auto) 0.4 Lymph # (Auto) 1.94 Pine # (Auto) 0.9 H Eos # (Auto) 0.1 Baso # (Auto) 0.0 Abs Immat Gran (auto) 0.09 H Absolute Neuts (auto) 4.5 Absolute Nucleated RBC 0.0 Nucleated RBC % 0.0 Sodium 131 L Potassium 3.5 Chloride 101 Carbon Dioxide 23 Anion Gap 7 L BUN 15 D Creatinine 0.60 L Estim Creat Clear Calc 86 Estimated GFR > 60 Glucose 122 H Lactic Acid 1.5 Calcium 8.0 L Total Bilirubin 0.4 AST 33 ALT 27 Alkaline Phosphatase 73 Total Protein 6.0 L Albumin 3.0 L Lipase Urine Color Urine Appearance Urine pH Ur Specific [place] Urine Protein Urine Glucose (UA) Urine Ketones Ur Blood (Man) Urine Nitrate Urine Bilirubin Urine Urobilinogen Leukocyte Esterase Rfl Urine RBC Urine WBC Ur Squamous Epith Cells Urine Mucus Influenza A (RT-PCR) Influenza B (RT-PCR) SARS-CoV-2 RNA (R
--- NOTE | 2021-05-09 16:19 | PCSTNOTE ---
Please refer to the Bedside Swallow Evaluation in the EMR. Please note, silent aspiration cannot be ruled out at bedside.
[2021-05-09] MEDS: POLYMYXIN/TRIMETHOPRIM OPHTH 10 ML DROPS 1 DROP EACH EYE ×2 (17:57→20:49)
[2021-05-09] MEDS: IBUPROFEN 200 MG TABLET PO (18:01)
[2021-05-09] MEDS: MOXIFLOXACIN HCL 0.5% 3 ML OPHTH SOLN 1 DROP EACH EYE ×2 (18:27→20:49)
[2021-05-10] VITALS: PULSE 87
[2021-05-10 04:39] VITALS: PULSE 96
[2021-05-10 05:58] VITALS: BP 143/76; PULSE 96; RESP 20; TEMP 36.6; O2SAT 96
[2021-05-10 08:20] VITALS: PULSE 92
[2021-05-10 08:25] VITALS: PULSE 100
[2021-05-10] MEDS: PANTOPRAZOLE 40 MG TABLET PO (08:25)
[2021-05-10] MEDS: IBUPROFEN 200 MG TABLET PO (08:25)
[2021-05-10] MEDS: CHOLECALCIFEROL 1,000 UNITS TABLET 1000 UNITS PO (08:25)
[2021-05-10] MEDS: APIXABAN 5 MG TABLET PO (08:25)
[2021-05-10] MEDS: METOPROLOL TARTRATE 50 MG TAB PO (08:25)
[2021-05-10] MEDS: GABAPENTIN 100 MG CAPSULE PO (08:25)
[2021-05-10] MEDS: FLUTICASONE PROPIONATE 0.05% NA SPR 16 GM BTL (*BKC) 2 SPRAY NASAL (08:25)
[2021-05-10] MEDS: MOXIFLOXACIN HCL 0.5% 3 ML OPHTH SOLN 1 DROP EACH EYE (08:26)
[2021-05-10] MEDS: POLYMYXIN/TRIMETHOPRIM OPHTH 10 ML DROPS 1 DROP EACH EYE (08:26)
[2021-05-10] MEDS: predniSONE 10 MG TABLET PO (08:26)
[2021-05-10] MEDS: LORazepam (*CRX) 0.5 MG TABLET PO (08:28)
--- NOTE | 2021-05-10 09:17 | PM.DS ---
DS: Admitting Diagnosis Discharge Date 05/10/2021 Admitting Diagnosis Dehydration, nausea and vomiting DS: Discharge Diagnosis Discharge Diagnosis (1) Intractable nausea and vomiting: Code(s): R11.2 - Nausea with vomiting, unspecified Status: Acute Assessment and Plan: Vomiting has resolve and nausea has significantly improved. Planned for discharge. Discharge held on 05/09 as patient began retching in the evening. (2) Acute dehydration: Code(s): E86.0 - Dehydration Status: Acute Assessment and Plan: Given 500 ml bolus x2 in ED. CT A/P did not show any colitis or acute intraabdominal process w/ patient reporting improvement of symptoms. -Discharge to home -Already has prescription for zofran but will give 30 tabs to last until PCP follow up (3) Acute hyponatremia: Code(s): E87.1 - Hypo-osmolality and hyponatremia Status: Acute Assessment and Plan: Improved with rehydration and will likely resolve after diuresis (4) Dysphagia: Code(s): R13.10 - Dysphagia, unspecified Status: Acute Assessment and Plan: Speech therapy was consulted and recommended diet as tolerated. 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 (6) History of gastroesophageal reflux (GERD): Code(s): Z87.19 - Personal history of other diseases of the digestive system Status: Inactive Assessment and Plan: Home PPI continued. DS: Summary Hospital Course Hospital Course: 75F with a past medical history of genetic blindness, GERD, hypertension, peripheral diabetic neuropathy, home bound who presented to the ED with intractable nausea and vomiting. Lactic acid was elevated. Patient also reported inability to swallow, so FIELD LIABILITY GENERALIST was consulted and recommended diet as tolerated. Patient reported her difficulty swallowing was actually due to her constant retching and feeling so nauseated that she could not bring herself to swallow anything. This significantly improved on 05/09 in the morning. Lactic acid resolved and serum sodium improved after hydration. Patient planned for discharge home on 05/09 but discharge was held as patient began retching again prior to attempting to leave facility. Patient felt better on 05/10 and was discharged to home. Time Spent with Patient Time attestation: Total time spent providing and/or coordinating discharge services: Exam Narrative: GENERAL: NAD, cooperative HEENT: Normocephalic, atraumatic, eyes closed during visit NECK: Supple CV: Normal S1, S2, RRR, No MRG RESP: CTAB, Normal work of breathing. Abdomen: Soft, non-tender, non-distended, +BS EXTREMITIES: Warm and well perfused, no clubbing, cyanosis SKIN: warm, dry and intact. 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 [facility] will resume services for lawn care worker. [facility] can be contacted at [phone]. You were admitted due to your concerns about dehydration and your dry heaving preventing you from having adequate oral intake. It is very important that you follow up with your [facility] physician within one week or have the current agency you are using for home visits see you for a discharge follow up within the next week. Patient Instructions: Antibiotic Form Patient Language: Armenian Stand Alone Forms: General Discharge Information Follow-up/Referrals: Thiago Cantor MD [Primary Care Provider] - 1 Week Discharg
== END 2021-05-10 12:12 | disposition home health service (06) ==
LOC: ANHED 21:23 → ANH3MED 05-09 10:36
PROVIDERS: Physician Assistant; Admitting Provider Internal Medicine; Emergency Provider Emergency Medicine; PCP Family Medicine Adolescent Medicine; Visit Provider Family Medicine
DX: R11.2 Nausea with vomiting, unspecified (principal); E86.0 Dehydration; E87.1 Hypo-osmolality and hyponatremia; E87.2 Acidosis; Z20.822 Contact with and (suspected) exposure to COVID-19; K21.9 Gastro-esophageal reflux disease without esophagitis; H54.8 Legal blindness, as defined in USA; M81.0 Age-related osteoporosis without current pathological fracture; E11.42 Type 2 diabetes mellitus with diabetic polyneuropathy; R13.10 Dysphagia, unspecified; Z79.01 Long term (current) use of anticoagulants
CPT/HCPCS: 36415; 51701; 71045; 74177; 80053; 81001; 83605; 83690; 85025; 87086; 87088; 87502; 92610; 93005; 96361; 96374; 96375; 96376; 99285; A9270; C9803; G0378; J1200; J2405; J2765; J7040; J7512; Q9967; U0003; U0005

== ENCOUNTER 2022-05-11 16:11 | Emergency (ER) | payer MEDICARE, SELFPAY ==
[2022-05-11] VITALS (15 sets, daily range): BP systolic 105–160; BP diastolic 62–124; PULSE 80–86; RESP 12–28; TEMP 36.8; O2SAT 88–97
--- NOTE | ~2022-05-11 | XR_ITS ---
EXAMINATION: XR chest 1V portable INDICATION: Shortness of breath TECHNIQUE: Portable AP chest at 1633 hours COMPARISON: 05/08/2021 FINDINGS: There are bilateral perihilar opacities extending into the lungs. A small left pleural effu shy is suggested. There is no pneumothorax. The cardiomediastinal silhouette is stable. IMPRESSION: 1. Bilateral perihilar opacities extending into the lungs, suggestive of pulmonary edema. Reviewed, dictated and finalized at location L. IMPRESSION: 1. Bilateral perihilar opacities extending into the lungs, suggestive of pulmon li edema.
--- NOTE | 2022-05-11 16:21 | ECG_ITS ---
Measurements Intervals [place] Rate: 81 P: 37 OR: 159 QRS: 27 QRSD: 86 T: 38 QT: 351 QTc: 409 Interpretive Statements SINUS RHYTHM NORMAL ECG COMPARED TO ECG 05/08/2021 18:14:36 SINUS RHYTHM NOW PRESENT Electronically Signed On 05-12-2022 13:41:08 CDT by [employer]upo Edmonds M.D.
--- NOTE | 2022-05-11 16:24 | ED.SOB ---
HPI - SOB/Dyspnea General Chief Complaint: Shortness of Breath/Dyspnea Stated Complaint: SOB Time Seen by Provider: 05/11/22 16:13 History of Present Illness HPI Narrative: Pt presents today with complaints of SOB and swelling to legs. Pt apparently seen by home health for first time today and sent to ER. Pt has chronic edema but says is worse. Pt is morbidly obese and does not walk anymore. Pt denies CP. Pt denies fever or cough. Related Data Home Medications Medication Instructions Recorded Confirmed fluticasone propionate 50 50 mcg intranasal DAILY 05/08/21 05/09/21 mcg/actuation nasal spray,suspension gabapentin 100 mg capsule 100 mg PO DAILY 05/08/21 05/09/21 pantoprazole 40 mg tablet,delayed 40 mg PO DAILY 05/08/21 05/09/21 release Avexia See Rx Instructions .Route .COMPLEX 05/09/21 05/09/21 Marijuana Oral Eadible 1 tab-cap PO DAILY 05/09/21 05/09/21 acetaminophen 650 mg tablet 650 mg PO Q6H PRN Pain 05/09/21 05/09/21 alendronate 70 mg tablet 70 mg PO WEEKLY 05/09/21 05/09/21 carboxymethylcellulose sodium 0.5 1 drp EACH EYE QID 05/09/21 05/09/21 % eye drops (Refresh Tears) cholecalciferol (vitamin D3) 25 25 mcg PO DAILY 05/09/21 05/09/21 mcg (1,000 unit) tablet (Vitamin D3) diphenhydramine 12.5 mg-PE 5 20 ml PO BID PRN Cough 05/09/21 05/09/21 mg-acetaminophen 325 mg/10 mL oral liquid (Mucinex Fast-Max Nite Cold-Flu) diphenhydramine HCl 25 mg capsule 25 mg PO BID PRN nasal drip 05/09/21 05/09/21 (Benadryl) ibuprofen 200 mg tablet 200 mg PO BID 05/09/21 05/09/21 moxifloxacin 0.5 % eye drops 1 drp EACH EYE QID 05/09/21 05/09/21 polyethylene glycol 3350 17 gram 17 g PO DAILY PRN Constipation 05/09/21 05/09/21 oral powder packet (Miralax) polymyxin B sulfate 10,000 1 drp EACH EYE QID 05/09/21 05/09/21 unit-trimethoprim 1 mg/mL eye drops prednisone 10 mg tablet 10 mg PO DAILY 05/09/21 05/09/21 simethicone 125 mg capsule See Rx Instructions .Route .COMPLEX 05/09/21 05/09/21 Allergies Allergy/AdvReac Type Severity Reaction Status Date / Time bacitracin Allergy Unknown OPHTHALMIC Verified 05/11/22 16:24 gramicidin D Allergy Unknown OPHTHALMIC Verified 05/11/22 16:24 neomycin Allergy Unknown OPHTHALMIC Verified 05/11/22 16:24 tobramycin Allergy Unknown Unknown Verified 05/11/22 16:24 Review of Systems Review of Systems: All systems reviewed & are unremarkable except as noted in HPI and below Respiratory: Respiratory: Reports as per HPI and Reports dyspnea PMFSH Past Medical History Medical History (Updated 05/11/22 @ 18:43 by Aditya Mclean III, DO) Acute hyponatremia Disability Dysphagia History of gastroesophageal reflux (GERD) History of pulmonary embolism (09/2020) Legally blind Obesity Family History Family History (Updated 05/09/21 @ 00:46 by Evelia Ignacio RN) Other Unknown family medical history Social History Social History (Updated 09/07/20 @ 12:57 by Usman Amaya, PA-C) Smoking status: Never smoker Alcohol intake: never Substance use: current Substance use type: marijuana Gender identity (if verbalized by the patient): Female Spiritual care concerns: No Exam Const: General: no acute distress and alert Nutritional Appearance: obese Orientation/consciousness: patient oriented x3 Other: poor historian Chest: Chest palpation & inspection: normal inspection of the chest Resp: Effort & Inspection: normal respiratory effort Auscultation: clear to auscultation bilaterally Cardio: Rate: regular rate Rhythm: regular rhythm GI: GI Palp: Yes Soft to palpation Auscultation: normal bowel sounds Skin: Rashes: no rashes Wounds: no wounds Neuro: General: patient oriented x3, moves all extremities, no meningeal signs and no focal motor deficits Speech: normal speech Extrem: General: edema Other: edema to le b/l Psych: Mental Status: mental status grossly normal Attitude: cooperative Course Vital Signs Vital s
[2022-05-11 17:12] LABS: Basophils Absolute Auto 0.1 K/mm3 (0.0-0.1); Basophils Percent Auto 0.8 % (0.2-1.2); Eosinophils Absolute Auto 0.5 K/mm3 (0-0.3); Eosinophils Percent Auto 4.2 % (0-4.4); Hematocrit 38.2 % (37.0-47.0); Hemoglobin 11.1 g/dL (12.0-15.0); Immature Granulocyte Absolute 0.57 K/mm3 (0.00-0.031); Immature Granulocyte Percent A 4.4 % (0-0.5); Lymphocytes Absolute Auto 3.32 K/mm3 (0.9-3.2); Lymphocytes Percent Auto 25.9 % (18.3-44.2); Mean Corpuscular HGB Conc 29.1 g/dl (32-36); Mean Corpuscular Volume 79.1 fl (80-100); Mean Platelet Volume 8.9 fl (7.4-10.4); Monocytes Absolute Auto 1.6 K/mm3 (0.1-0.6); Monocytes Percent Auto 12.8 % (2.6-8.5); Neutrophils Absolute Auto 6.7 K/mm3 (1.3-6.7); Neutrophils Percent Auto 51.9 % (45.5-73.1); Nucleated Red Blood Cells Perc 0.2 % (0.0-0.2); Platelet Count Result 417 k/mm3 (150-375); Red Blood Count 4.83 M/mm3 (4.2-5.4); Red Cell Distribution Width 20.9 % (11.5-14.5); White Blood Count 12.8 K/mm3 (4.5-10.0)
[2022-05-11 17:20] LABS: Hypochromasia 1+ (NORMAL); Platelet Estimate Increased (Adequate)
[2022-05-11 17:21] LABS: Anisocytosis 1+ (NORMAL); Schistocytes None Seen (NORMAL)
[2022-05-11 17:22] LABS: INR 1.9; Prothrombin Time 20.9 Seconds (11.1-14.7)
[2022-05-11 17:23] LABS: Alanine Aminotransferase 31 U/L (6-35); Alkaline Phosphatase 86 U/L (38-126); Anion Gap 5 mmol/L (8-16); Aspartate Amino Transferase 60 U/L (14-36); Bilirubin,Total 0.9 mg/dL (0.2-1.3); Blood Urea Nitrogen 10 mg/dL (7-17); Calcium 8.7 mg/dL (8.4-10.2); Carbon Dioxide 29 mmol/L (22-30); Chloride 95 mmol/L (98-107); Estimated CRCL calculation 57 ml/min; Estimated Glomerular Filt Rate 54; Glucose 153 mg/dL (65-110); Magnesium 1.6 mg/dL (1.6-2.3); Partial Thromboplastin Time 42.1 SECONDS (22.3-36.8); Potassium 4.6 mmol/L (3.4-5.0); Sodium 129 mmol/L (137-145)
[2022-05-11 17:35] LABS: NT Pro B Type Natriuretic Pept 146 pg/mL (19.9-100); Troponin I 0.028 ng/mL (0.000-0.034)
[2022-05-11] MEDS: KETOROLAC 15 MG/ML VIAL (*BKC) IV PUSH (18:53)
--- NOTE | 2022-05-11 19:00 | PC.NURSE ---
Assumed care of pt. at this time. Report from PEDRO epps
== END 2022-05-11 23:00 | disposition home or self-care (01) ==
PROVIDERS: Emergency Provider Emergency Medicine; PCP Family Medicine Adolescent Medicine
DX: R60.0 Localized edema (principal); E66.01 Morbid (severe) obesity due to excess calories; K21.9 Gastro-esophageal reflux disease without esophagitis; H54.8 Legal blindness, as defined in USA; Z68.41 Body mass index [BMI] 40.0-44.9, adult; Z86.711 Personal history of pulmonary embolism; Z79.01 Long term (current) use of anticoagulants
CPT/HCPCS: 36415; 71045; 80053; 83735; 83880; 84484; 85025; 85610; 85730; 93005; 96374; 99284; J1885

== ENCOUNTER 2022-05-16 08:58 | Emergency (ER) | payer MEDICARE, SELFPAY ==
[2022-05-16] VITALS (19 sets, daily range): BP systolic 108–163; BP diastolic 67–92; PULSE 107–118; RESP 13–20; TEMP 36.7–37.2; O2SAT 19–99
--- NOTE | ~2022-05-16 | XR_ITS ---
XR chest 1V portable DATE: 05/16/2022 10:54 INDICATION: Hypoxia TECHNIQUE: Portable upright AP view on May 16, 2022 at 1052 hours COMPARISON: May 11, 2022 portable AP view FINDINGS: Cardiomegaly, aortic calcification and unfolding. Prominent left mid lung bulla. Mild infiltrate or atelectasis is suggested in the lower lung zones. D iminished perihilar opacities since 05/2022. Pulmonary vascular redistribution and mild prominence of the minor fissure may indicate mild residual congestive change. No pleural effusion or or pneumothor ax. Osteopenia. IMPRESSION: Mild infiltrate or atelectasis is suggested in the lower lung zones; diminished perihilar opacities suggesting improvement of pulmonary edema since May 11, 2022 Reviewed, dictated and finalized at location A. IMPRESSION: Mild infiltrate or atelectasis is suggested in the lower lung zones ; diminished perihilar opacities suggesting improvement of pulmonary edema sinc e May 11, 2022
--- NOTE | ~2022-05-16 | XR_ITS ---
XR ankle LT min 3V DATE: 05/16/2022 09:28 INDICATION: Wound the lateral malleolus. Exposed hardware. TECHNIQUE: 3 views COMPARISON: None FINDINGS: There is osteopenia. There is a long plate along the distal fibular shaft and lateral malleolus with multiple transverse t hrough screws including 2 long screws through the distal tibial metaphysis. There are 2 screws extending through the medial malleolus into the distal tibial metaphysis. There is artifact overlying the soft tissues of the lateral aspect of the lower leg and ankle. The so ft tissues over the lower portion of the lateral fibular plate appear to be quite thin; the clinical history states that there is exposure of the plate. No recent fracture or dislocation, periosteal reaction or bone destruction is detected. IMPRESSION: Status post ORIF bimalleolar fracture Osteopenia Clinically reported exposure of the fixation plate of the lateral malleolus; soft tissues over the pl ate at the lateral malleolus appear quite thin. Clinical correlation is advised Reviewed, dictated and finalized at location A. IMPRESSION: Status post ORIF bimalleolar fracture Osteopenia Clinically reported exposure of the fixation plate of the lateral malleolus; so ft tissues over the plate at the lateral malleolus appear quite thin. Clinical correlation is advised
--- NOTE | 2022-05-16 09:17 | ED.EXTPRO ---
HPI - Extremity Problem General Chief complaint: Extremity Problem,Nontraumatic <Cat Ibarra PA-C - Last Filed: 05/16/22 18:32> Stated complaint: foot ulcer <MARY JANE Olivares Last Filed: 05/16/22 18:32> Time Seen by Provider: 05/16/22 09:04 <MARY JANE Olivares Last Filed: 05/16/22 18:32> Source: patient and old records reviewed <MARY JANE Olivares Last Filed: 05/16/22 18:32> Mode of arrival: EMS <MARY JANE Olivares Last Filed: 05/16/22 18:32> Limitations: clinical condition <MARY JANE Olivares Last Filed: 05/16/22 18:32> History of Present Illness HPI Narrative: Patient is a 76 y/o female, with PMH of morbid obesity, HTN, CHF, blood clots on Eliquis, who presents to the ED via EMS with report of an ulcerated wound to her left ankle. Patient lives at home with her son and . Son reportedly called EMS today due to the wound on patient's left lateral ankle. There is exposed hardware noted to wound. Patient reports she fractured her ankle in February. Unable to view any records of where/when this occurred or was operated on. Per records, patient was seen here on 05/11 for lower extremity edema. No wound was noted at that time. She was discharged back home. Patient otherwise without acute complaints currently, asking for water repeatedly. She is a poor historian. Denies history of diabetes mellitus. <MARY JANE Olivares Last Filed: 05/16/22 18:32> Related Data Home medications: Home Medications Medication Instructions Recorded Confirmed fluticasone propionate 50 50 mcg intranasal DAILY 05/08/21 05/09/21 mcg/actuation nasal spray,suspension gabapentin 100 mg capsule 100 mg PO DAILY 05/08/21 05/09/21 pantoprazole 40 mg tablet,delayed 40 mg PO DAILY 05/08/21 05/09/21 release Avexia See Rx Instructions .Route .COMPLEX 05/09/21 05/09/21 Marijuana Oral Eadible 1 tab-cap PO DAILY 05/09/21 05/09/21 acetaminophen 650 mg tablet 650 mg PO Q6H PRN Pain 05/09/21 05/09/21 alendronate 70 mg tablet 70 mg PO WEEKLY 05/09/21 05/09/21 carboxymethylcellulose sodium 0.5 1 drp EACH EYE QID 05/09/21 05/09/21 % eye drops (Refresh Tears) cholecalciferol (vitamin D3) 25 25 mcg PO DAILY 05/09/21 05/09/21 mcg (1,000 unit) tablet (Vitamin D3) diphenhydramine 12.5 mg-PE 5 20 ml PO BID PRN Cough 05/09/21 05/09/21 mg-acetaminophen 325 mg/10 mL oral liquid (Mucinex Fast-Max Nite Cold-Flu) diphenhydramine HCl 25 mg capsule 25 mg PO BID PRN nasal drip 05/09/21 05/09/21 (Benadryl) ibuprofen 200 mg tablet 200 mg PO BID 05/09/21 05/09/21 moxifloxacin 0.5 % eye drops 1 drp EACH EYE QID 05/09/21 05/09/21 polyethylene glycol 3350 17 gram 17 g PO DAILY PRN Constipation 05/09/21 05/09/21 oral powder packet (Miralax) polymyxin B sulfate 10,000 1 drp EACH EYE QID 05/09/21 05/09/21 unit-trimethoprim 1 mg/mL eye drops prednisone 10 mg tablet 10 mg PO DAILY 05/09/21 05/09/21 simethicone 125 mg capsule See Rx Instructions .Route .COMPLEX 05/09/21 05/09/21 <Cat Ibarra PA-C - Last Filed: 05/16/22 18:32> Allergies/Adverse reactions: Allergies Allergy/AdvReac Type Severity Reaction Status Date / Time bacitracin Allergy Unknown OPHTHALMIC Verified 05/16/22 09:28 gramicidin D Allergy Unknown OPHTHALMIC Verified 05/16/22 09:28 neomycin Allergy Unknown OPHTHALMIC Verified 05/16/22 09:28 tobramycin Allergy Unknown Unknown Verified 05/16/22 09:28 <Cat Ibarra PA-C - Last Filed: 05/16/22 18:32> Review of Systems Review of Systems: CONSTITUTIONAL: Denies fever, chills, or sweats. SKIN: See HPI. MUSCULOSKELETAL: See HPI. <Cat Ibarra PA-C - Last Filed: 05/16/22 18:32> ROS unobtainable: Yes unobtainable due to medical condition (Limited due to being a poor historian.) <Cat Ibarra PA-C - Last Filed: 05/16/22 18:32> [facility] Past Medical History Medical History: Medical Histor
[2022-05-16] MEDS: ONDANSETRON INJ 4 MG/2 ML VIAL IV PUSH (09:45)
[2022-05-16 10:02] LABS: Basophils Absolute Auto 0.1 K/mm3 (0.0-0.1); Basophils Percent Auto 0.6 % (0.2-1.2); Eosinophils Absolute Auto 0.4 K/mm3 (0-0.3); Eosinophils Percent Auto 2.6 % (0-4.4); Hematocrit 36.2 % (37.0-47.0); Hemoglobin 10.5 g/dL (12.0-15.0); Immature Granulocyte Absolute 0.61 K/mm3 (0.00-0.031); Lymphocytes Absolute Auto 4.06 K/mm3 (0.9-3.2); Lymphocytes Percent Auto 26.8 % (18.3-44.2); Mean Corpuscular Hemoglobin 22.5 pg (26-34); Mean Corpuscular Volume 77.5 fl (80-100); Mean Platelet Volume 9.3 fl (7.4-10.4); Monocytes Absolute Auto 2.5 K/mm3 (0.1-0.6); Monocytes Percent Auto 16.4 % (2.6-8.5); Neutrophils Absolute Auto 7.5 K/mm3 (1.3-6.7); Neutrophils Percent Auto 49.6 % (45.5-73.1); Nucleated Red Blood Cells Perc 0.1 % (0.0-0.2); Platelet Count Result 453 k/mm3 (150-375); Red Blood Count 4.67 M/mm3 (4.2-5.4); Red Cell Distribution Width 21.4 % (11.5-14.5); White Blood Count 15.2 K/mm3 (4.5-10.0)
[2022-05-16 10:10] LABS: Hemoglobin A1C 8.5 % (<5.7)
[2022-05-16 10:11] LABS: Lactic Acid Reflex 2.7 mmol/L (0.7-2.0)
[2022-05-16 10:12] LABS: Alanine Aminotransferase 25 U/L (6-35); Alkaline Phosphatase 112 U/L (38-126); Anion Gap 9 mmol/L (8-16); Aspartate Amino Transferase 46 U/L (14-36); Bilirubin,Total 1.1 mg/dL (0.2-1.3); Blood Urea Nitrogen 29 mg/dL (7-17); Calcium 8.9 mg/dL (8.4-10.2); Carbon Dioxide 26 mmol/L (22-30); Chloride 92 mmol/L (98-107); Estimated CRCL calculation 21 ml/min; Estimated Glomerular Filt Rate 17; Glucose 143 mg/dL (65-110); Potassium 4.9 mmol/L (3.4-5.0); Sodium 127 mmol/L (137-145)
[2022-05-16 10:13] LABS: INR 1.3; Prothrombin Time 15.4 Seconds (11.1-14.7)
[2022-05-16] MEDS: metroNIDAZOLE 500 MG/ISO 100ML 500 MG/100 ML BAG 100 MG IVPB (10:32)
[2022-05-16] MEDS: CEFEPIME 2 GM/NS 50 ML 2 GM/50 ML BAG IVPB (10:33)
[2022-05-16 10:47] LABS: NT Pro B Type Natriuretic Pept 212 pg/mL (19.9-100)
[2022-05-16] MEDS: SODIUM CHLORIDE 0.9% IV 1,000 ML 999 ML IV CONT (10:47)
--- NOTE | 2022-05-16 11:05 | ECG_ITS ---
Measurements Intervals [place] Rate: 114 P: 49 ND: 156 QRS: 37 QRSD: 78 T: 19 QT: 304 QTc: 420 Interpretive Statements SINUS TACHYCARDIA BASELINE ARTIFACT BORDERLINE ECG COMPARED TO ECG 05/11/2022 16:43:04 SINUS TACHYCARDIA NOW PRESENT Electronically Signed On 05-16-2022 13:58:49 CDT by Omar Keen M.D.
[2022-05-16 13:00] LABS: Reflex Lactic Acid Yes or No Add Lactic
[2022-05-16 13:39] LABS: Lactic Acid 2.9 mmol/L (0.7-2.0)
== END 2022-05-16 14:50 | disposition short-term general hospital (02) ==
PROVIDERS: Emergency Provider Physician Assistant; PCP Family Medicine Adolescent Medicine
DX: J96.01 Acute respiratory failure with hypoxia (principal); R65.20 Severe sepsis without septic shock; N17.9 Acute kidney failure, unspecified; T84.89XA Other specified complication of internal orthopedic prosthetic devices, implants and grafts, initial encounter; L97.328 Non-pressure chronic ulcer of left ankle with other specified severity; E11.65 Type 2 diabetes mellitus with hyperglycemia; E87.1 Hypo-osmolality and hyponatremia; I50.9 Heart failure, unspecified; I11.0 Hypertensive heart disease with heart failure; K21.9 Gastro-esophageal reflux disease without esophagitis; H54.8 Legal blindness, as defined in USA; E66.01 Morbid (severe) obesity due to excess calories; Z68.42 Body mass index [BMI] 45.0-49.9, adult; Z74.01 Bed confinement status; Z86.711 Personal history of pulmonary embolism; Z79.01 Long term (current) use of anticoagulants; M85.872 Other specified disorders of bone density and structure, left ankle and foot
CPT/HCPCS: 36415; 71045; 73610; 80053; 83036; 83605; 83880; 85025; 85610; 85730; 87040; 87070; 87147; 87181; 87186; 87205; 93005; 96365; 96366; 96367; 96375; 99285; J0131; J0692; J2405; J3370; J7030

== ENCOUNTER 2022-06-12 12:56 | Inpatient (IN) | payer MEDICARE, SELFPAY ==
--- NOTE | ~2022-06-12 | CT_ITS ---
EXAMINATION: CT chest abdomen pelvis wo con DATE: 06/14/2022 13:22 INDICATION: Abdominal pain. Vomiting. Shortness of breath. TECHNIQUE: Computed tomography (CT) of the chest, abdomen, and pelvis was performed without intraveno us contrast. Automated exposure control and iterative reconstruction technique were employed. The dos e-length product was 1833.50 mGy-cm. COMPARISON: CT abdomen and pelvis 05/08/2021 FINDINGS: CHEST CT: There is mild emphysema. The lungs demonstrate mild atelectasis. There is septal thickening bilateral ly, consistent with mild pulmonary edema. No pleural effusion. The heart size is normal. There are co ronary artery calcifications. No pericardial effusion. There is moderate thoracic spondylosis. There are chronic burst fractures of T6, T7, and T8. There are old healed rib fractures bilaterally. ABDOMEN/PELVIS CT: There is diffuse hepatic steatosis. There are changes of cholecystectomy. The spleen, pancreas, adren al glands, and kidneys are normal. There is no urolithiasis. There are no dilated loops of bowel. The appendix is not visualized. There are no pathologically enlarged lymph nodes. There is no free intra peritoneal fluid. There is moderate lumbar spondylosis. IMPRESSION: 1. Mild pulmonary edema. 2. Mild emphysema. 3. Diffuse hepatic steatosis. Reviewed, dictated and finalized at location A.
--- NOTE | ~2022-06-12 | XR_ITS ---
XR chest 1V portable 06/20/2022 09:43 Indication: Peripheral edema. Procedure: AP portable chest Comparison: No prior studies for comparison. Findings: Cardiomegaly. Mild interstitial edema. There is a bleb in the left mid thorax. No significa nt effusion or pneumothorax. No acute osseous abnormality. Impression: 1: Cardiomegaly with mild interstitial edema. Reviewed, dictated and finalized at location A. Impression: 1: Cardiomegaly with mild interstitial edema.
--- NOTE | ~2022-06-12 | US_ITS ---
EXAMINATION: US abdomen limited DATE: 06/13/2022 12:56 INDICATION: Abnormal liver function tests. Abdominal pain. TECHNIQUE: Multiple grayscale and Doppler ultrasound images of the abdomen were obtained. COMPARISON: CT abdomen and pelvis 05/08/2021 FINDINGS: The visualized portions of the head and body of the pancreas are normal. There is diffuse h epatic steatosis. There is antegrade flow in main portal vein. The gallbladder is absent. The common duct is normal and measures 5 mm. IMPRESSION: 1. Diffuse hepatic steatosis. Reviewed, dictated and finalized at location A.
--- NOTE | ~2022-06-12 | US_ITS ---
EXAMINATION: US venous doppler UE DATE: 06/15/2022 13:29 INDICATION: Upper extremity edema TECHNIQUE: Ludwig scale images with and without compression and Doppler images of the right and left up per extremity veins were obtained. COMPARISON: None. FINDINGS: The internal jugular vein, subclavian vein, axillary vein, brachial veins, basilic vein, cephalic vei n, radial vein, and ulnar vein are patent. The right ulnar vein not visualized. IMPRESSION: 1. Patent bilateral upper extremity veins. No evidence of deep venous thrombosis. Reviewed, dictated and finalized at location L. IMPRESSION: 1. Patent bilateral upper extremity veins. No evidence of deep venous thrombosi s.
--- NOTE | ~2022-06-12 | US_ITS ---
EXAMINATION: US renal BI DATE: 06/16/2022 19:18 INDICATION: BETHEL TECHNIQUE: Multiple grayscale and Doppler ultrasound images of the kidneys were obtained. COMPARISON: CT CAP 06/14/2022. FINDINGS: The right kidney measures 12.0 x 4.9 x 6.2 cm. The left kidney measures 11.1 x 5.2 x 5.7 cm. The kidn eys demonstrate normal parenchymal echogenicity. Echogenic liver parenchyma There is no hydronephrosi s. The bladder is partially distended, ureteral jets not detected during this examination. IMPRESSION: Ureteral jets not detected during the examination. Otherwise normal renal ultrasound findings. Incide ntal note of echogenic liver parenchyma, most commonly due to steatosis but also can be seen with hep atitis and fibrosis. Reviewed, dictated and finalized at location K. IMPRESSION: Ureteral jets not detected during the examination. Otherwise normal renal ultra sound findings. Incidental note of echogenic liver parenchyma, most commonly du e to steatosis but also can be seen with hepatitis and fibrosis.
--- NOTE | ~2022-06-12 | XR_ITS ---
EXAMINATION: XR barium swallow modified DATE: 06/13/2022 13:02 INDICATION: Dysphagia. TECHNIQUE: The patient was given barium-containing material of multiple consistencies to swallow by t socrates speech pathologist while I performed fluoroscopy. Fluoroscopy exposure time was 1.6 minutes. The n umber of fluoroscopy images saved to the PACS was 1. Dose-area product was 4.267 Gy-cm^2. FINDINGS: There is reduced laryngeal elevation, reduced laryngeal adduction, reduced tongue base retraction, an d vallecular residue. There is laryngeal penetration and aspiration of thin liquids. IMPRESSION: 1. Aspiration of thin liquids. 2. Please refer to the speech therapy report for recommendations. Reviewed, dictated and finalized at location A.
--- NOTE | ~2022-06-12 | US_ITS ---
EXAMINATION:US venous doppler LE BI INDICATION:Lower extremity edema TECHNIQUE: Multiple grayscale, color flow and Doppler images of the right and left lower extremity de ep venous systems were obtained and reviewed. COMPARISON:09/08/2018 FINDINGS: The common femoral, superficial femoral and popliteal veins demonstrate normal respiratory variation, augmentation and compressibility. Color flow is also seen within the posterior tibial, pe roneal, greater saphenous and profunda veins. IMPRESSION: 1: No lower extremity deep venous thrombosis. Reviewed, dictated and finalized at location L.
--- NOTE | ~2022-06-12 | XR_ITS ---
EXAMINATION: XR chest 1V portable DATE: 06/12/2022 13:33 INDICATION: Dysphagia. TECHNIQUE: A single frontal view of the chest was obtained. COMPARISON: Chest single view 05/16/2022, CT abdomen and pelvis 05/08/2021 FINDINGS: There are lucencies in the lungs, consistent with emphysema. There is mild atelectasis in t he lower lung zones. No pleural effusion or pneumothorax. The heart size is normal. IMPRESSION: 1. Emphysema. 2. Mild atelectasis in the lower lung zones. Reviewed, dictated and finalized at location A.
[2022-06-12 13:06] VITALS: BP 141/100; PULSE 107; RESP 18; TEMP 36.4; O2SAT 97
--- NOTE | 2022-06-12 13:06 | ED.GENADULT ---
HPI - General Adult General Chief complaint: Unspecified Stated complaint: diff. swallowing History of Present Illness HPI narrative: 76-year-old female presented the ED for evaluation of difficulty swallowing. Patient states that she was having dry heaves at home and was unable to keep down water. Patient called EMS for the patient to be transferred to the emergency department. Upon arrival to the ED patient was requesting water to drink and patient was able to drink from her sippy cup. After drinking patient denies any nausea or sensation of dry heaves. Patient felt that the water went down. Son states that the patient did have a recent hospitalization at [facility]. Patient was to be started on antibiotics (Augmentin) but had not yet started this antibiotic. Son is concerned because the patient has been having increased swallowing issues with solid food. Related Data Home Medications Medication Instructions Recorded Confirmed fluticasone propionate 50 50 mcg intranasal DAILY 05/08/21 06/12/22 mcg/actuation nasal spray,suspension gabapentin 100 mg capsule 100 mg PO DAILY 05/08/21 05/09/21 Avexia See Rx Instructions .Route .COMPLEX 05/09/21 05/09/21 Marijuana Oral Eadible 1 tab-cap PO DAILY 05/09/21 06/12/22 acetaminophen 650 mg tablet 650 mg PO Q6H PRN Pain 05/09/21 06/12/22 alendronate 70 mg tablet 70 mg PO WEEKLY 05/09/21 06/12/22 carboxymethylcellulose sodium 0.5 1 drp EACH EYE QID 05/09/21 05/09/21 % eye drops (Refresh Tears) diphenhydramine 12.5 mg-PE 5 20 ml PO BID PRN Cough 05/09/21 06/12/22 mg-acetaminophen 325 mg/10 mL oral liquid (Mucinex Fast-Max Nite Cold-Flu) diphenhydramine HCl 25 mg capsule 25 mg PO BID PRN nasal drip 05/09/21 06/12/22 (Benadryl) ibuprofen 200 mg tablet 200 mg PO BID 05/09/21 06/12/22 polyethylene glycol 3350 17 gram 17 g PO DAILY PRN Constipation 05/09/21 06/12/22 oral powder packet (Miralax) simethicone 125 mg capsule See Rx Instructions .Route .COMPLEX 05/09/21 06/12/22 mirtazapine 7.5 mg tablet 7.5 mg PO HS 05/06/23 05/06/23 nystatin 100,000 unit/gram topical 1 applic topical BID 06/12/22 06/12/22 powder pregabalin 50 mg capsule 50 mg PO BID 06/12/22 06/12/22 Allergies Allergy/AdvReac Type Severity Reaction Status Date / Time bacitracin Allergy Unknown OPHTHALMIC Verified 06/12/22 18:45 gramicidin D Allergy Unknown OPHTHALMIC Verified 06/12/22 18:45 neomycin Allergy Unknown OPHTHALMIC Verified 06/12/22 18:45 tobramycin Allergy Unknown Unknown Verified 06/12/22 18:45 Review of Systems Review of Systems: All systems reviewed & are unremarkable except as noted in HPI and below PMFSH Past Medical History Medical History (Updated 06/12/22 @ 15:13 by Michael Amaro MD) Acute hyponatremia Disability Dysphagia History of gastroesophageal reflux (GERD) History of pulmonary embolism (09/2020) Legally blind Obesity Surgical History Surgical History (Updated 05/16/22 @ 09:20 by Cat Ibarra PA-C) History of ankle surgery Family History Family History Other Unknown family medical history Social History Social History Smoking status: Never smoker Alcohol intake: former Substance use: current Substance use type: marijuana Lack of Transportation: No Lack of Food: Never True Current Housing: I Do Not Have Housing Concerned About Future Housing: No Difficulty Paying Gas/Electric Bills: No Difficulty Paying for Meds: No Currently Unemployed: No Education: Don't Know Difficulty w/ Childcare or Family Care: No Gender identity (if verbalized by the patient): Female Spiritual care concerns: No Exam Narrative: APPEARANCE: Well appearing, no pain, no distress, well-nourished. HEAD: normocephalic, atraumatic. EYES: Patient is blind NOSE: Normal no drainage THROAT: Pharynx clear, no exudate.
[2022-06-12 13:12] VITALS: PULSE 105
[2022-06-12] MEDS: ONDANSETRON INJ 4 MG/2 ML VIAL IV PUSH ×2 (13:31→18:05)
[2022-06-12 13:32] LABS: Basophils Absolute Auto 0.1 K/mm3 (0.0-0.1); Basophils Percent Auto 0.4 % (0.2-1.2); Eosinophils Absolute Auto 0.3 K/mm3 (0-0.3); Eosinophils Percent Auto 2.3 % (0-4.4); Hematocrit 31.2 % (37.0-47.0); Hemoglobin 9.3 g/dL (12.0-15.0); Immature Granulocyte Absolute 0.21 K/mm3 (0.00-0.031); Immature Granulocyte Percent A 1.6 % (0-0.5); Lymphocytes Absolute Auto 2.82 K/mm3 (0.9-3.2); Lymphocytes Percent Auto 21.8 % (18.3-44.2); Mean Corpuscular HGB Conc 29.8 g/dl (32-36); Mean Corpuscular Hemoglobin 22.7 pg (26-34); Mean Corpuscular Volume 76.3 fl (80-100); Mean Platelet Volume 10.1 fl (7.4-10.4); Monocytes Absolute Auto 2.3 K/mm3 (0.1-0.6); Monocytes Percent Auto 17.5 % (2.6-8.5); Neutrophils Absolute Auto 7.3 K/mm3 (1.3-6.7); Neutrophils Percent Auto 56.4 % (45.5-73.1); Platelet Count Result 273 k/mm3 (150-375); Red Blood Count 4.09 M/mm3 (4.2-5.4); Red Cell Distribution Width 25.2 % (11.5-14.5)
[2022-06-12 13:42] LABS: INR 1.4; Prothrombin Time 17.8 Seconds (11.1-14.7)
[2022-06-12 13:43] LABS: Partial Thromboplastin Time 41.3 SECONDS (22.3-36.8)
[2022-06-12 13:47] LABS: Anisocytosis 3+ (NORMAL); Platelet Estimate Adequate (Adequate); Schistocytes None Seen (NORMAL); Target Cells 2+ (NORMAL)
[2022-06-12 14:09] LABS: Alanine Aminotransferase 32 U/L (6-35); Albumin Level 2.5 g/dL (3.5-5.1); Alkaline Phosphatase 181 U/L (38-126); Anion Gap 9 mmol/L (8-16); Aspartate Amino Transferase 208 U/L (14-36); Bilirubin,Total 5.9 mg/dL (0.2-1.3); Blood Urea Nitrogen 9 mg/dL (7-17); Calcium 8.3 mg/dL (8.4-10.2); Carbon Dioxide 23 mmol/L (22-30); Chloride 101 mmol/L (98-107); Estimated CRCL calculation 52 ml/min; Estimated Glomerular Filt Rate 49; Glucose 108 mg/dL (65-110); Potassium 3.5 mmol/L (3.4-5.0); Sodium 133 mmol/L (137-145)
[2022-06-12 14:27] LABS: Appearance Urine Cloudy (Clear); Bacteria Urine None Seen /hpf; Bilirubin Urine 3+ (Negative); Blood Urine 1+ (Negative); Color Urine Dark Yellow (Yellow); Glucose Urine UA Trace mg/dL (Negative); Ketones Urine Trace mg/dL (Negative); Leukocyte Esterase Ur 2+ LEU/UL (Negative); Need Manual Microscopic Reviewed; Nitrate Urine Positive (Negative); Protein Urine 2+ mg/dL (Negative); RBC Urine 21-50 /hpf (0-2); Specific Grav Ur 1.018 (1.001-1.035); Squamous Epithelial Cell Urine Few /hpf (Few); WBC Urine 51-100 /hpf
[2022-06-12 14:28] LABS: Add Urine Microscopic? YES
[2022-06-12 16:40] VITALS: PULSE 100; RESP 20; O2SAT 99
--- NOTE | 2022-06-12 17:05 | ADMGEN ---
This patient, Ankita Hernandez, was admitted to Medical Room 253-01. Patient/family oriented to hospital policies and general routines including ID bracelet, bed and alarms, visiting hours, pain management, procedures, bathroom and other care routines, personal items, smoking policy, room service/diet, and visiting hours. Information on how to activate the Rapid Response Team has been discussed. Patient/Family are encouraged to report perceived risks to care and to ask questions if they do not understand what they are told or what they should do.
[2022-06-12 17:10] VITALS: BP 117/60; PULSE 104; RESP 20; TEMP 36.7; O2SAT 95
[2022-06-12 17:26] VITALS: BMI 42.0
[2022-06-12 18:32] VITALS: BMI 42.0
--- NOTE | 2022-06-12 21:17 | PM.IMHP ---
H&P: HPI History of Present Illness Date/Time: 06/12/22 21:17 Chief Complaint: Nausea and vomiting Narrative: This is a 76-year-old female with past medical history significant for blindness, morbid obesity, dysphagia, GERD. Patient resides at a long-term was brought for evaluation due to intractable nausea and vomiting patient unable to really quantify how many days but for sure all day prior to coming to emergency room can not tell if she has had any other problems. Preliminary workup was significant for urinalysis with numerous WBCs present. EXAMINATION: XR chest 1V portable DATE: 06/12/2022 13:33 INDICATION: Dysphagia. TECHNIQUE: A single frontal view of the chest was obtained. COMPARISON: Chest single view 05/16/2022, CT abdomen and pelvis 05/08/2021 FINDINGS: There are lucencies in the lungs, consistent with emphysema. There is mild atelectasis in the lower lung zones. No pleural effusion or pneumothorax. The heart size is normal. IMPRESSION: 1. Emphysema. 2. Mild atelectasis in the lower lung zones. Patient is been admitted for further evaluation management and treatment. Review of Systems Review of Systems: Intractable nausea vomiting Constitutional: Constitutional: Denies chills, Denies fever(s), Reports malaise, Reports poor appetite and Reports weakness Eyes: Eyes: Reports other (Blindness) ENT: Denies dysphagia and Denies odynophagia Cardiovascular: Cardiovascular: Denies chest pain Respiratory: Respiratory: Denies cough and Denies excessive phlegm production Gastrointestinal: Gastrointestinal: Denies abdominal pain, Denies dyspepsia, Denies heartburn, Reports nausea and Reports vomiting Genitourinary: Genitourinary: Reports no additional female genitourinary complaints and Reports as per HPI Musculoskeletal: Musculoskeletal: Reports back pain Integumentary/Breasts: Skin/Breast: Denies rash Neurologic: Denies Sensory deficit (Neuro) Psychiatric: Psychiatric: Reports no additional psychiatric complaints and Reports as per HPI Endocrine: Endocrine: Denies polyphagia, Denies polydipsia and Denies palpitations Hematologic/Lymphatic: Hematologic/Lymphatic: Reports no additional hematologic/lymphatic complaints and Reports as per HPI Allergic/Immunologic: Allergic/Immunologic: Reports no additional allergic/immunologic complaints and Reports as per HPI [facility] Past Medical History Medical History (Updated 06/12/22 @ 15:13 by Michael Amaro MD) Acute hyponatremia Disability Dysphagia History of gastroesophageal reflux (GERD) History of pulmonary embolism (09/2020) Legally blind Obesity Surgical History Surgical History (Updated 05/16/22 @ 09:20 by Cat Ibarra PA-C) History of ankle surgery Family History Family History Other Unknown family medical history Social History Social History Smoking status: Never smoker Alcohol intake: former Substance use: current Substance use type: marijuana Lack of Transportation: No Lack of Food: Never True Current Housing: I Do Not Have Housing Concerned About Future Housing: No Difficulty Paying Gas/Electric Bills: No Difficulty Paying for Meds: No Currently Unemployed: No Education: Don't Know Difficulty w/ Childcare or Family Care: No Gender identity (if verbalized by the patient): Female Spiritual care concerns: No Meds Home Medications and Allergies Home Medications Medication Instructions Recorded Confirmed Type fluticasone propionate 50 50 mcg intranasal DAILY 05/08/21 06/12/22 History mcg/actuation nasal spray,suspension gabapentin 100 mg capsule 100 mg PO DAILY 05/08/21 05/09/21 History Avexia See Rx Instructions .Route .COMPLEX 05/09/21 05/09/21 History Marijuana Oral Eadible 1 tab-cap PO DAILY 05/09/21 06/12/22 History acetaminophen 650 mg
[2022-06-12] MEDS: PREGABALIN (*CRX) 50 MG CAPSULE PO (22:02)
[2022-06-12] MEDS: LORazepam (*CRX) 1 MG TABLET PO (22:02)
[2022-06-12 22:03] VITALS: PULSE 104
[2022-06-12] MEDS: APIXABAN 5 MG TABLET PO (22:03)
[2022-06-12] MEDS: MIRTAZAPINE 7.5 MG TABLET PO (22:03)
[2022-06-12] MEDS: METOPROLOL TARTRATE 50 MG TAB PO (22:03)
[2022-06-12 22:50] VITALS: BP 131/62; PULSE 99; RESP 18; TEMP 36.2; O2SAT 96
[2022-06-13 06:00] VITALS: BP 104/44; PULSE 80; RESP 16; TEMP 37; O2SAT 94
--- NOTE | 2022-06-13 07:29 | PM.IMPN ---
Progress Note: A&P Assessment and Plan (1) Abnormal finding on urinalysis: Code(s): R82.90 - Unspecified abnormal findings in urine Status: Acute Assessment and Plan: UA concerning for UTI Rocephin changed to levaquin for GI and possible aspiration coverage until gallbladder disease ruled out. WBC elevated, procal 0.9, CRP 4.4 on admission. +suprapubic tenderness on exam. Patient is afebrile without CVA tenderness and suspect more likely acute cystitis. (2) Elevated LFTs: Code(s): R79.89 - Other specified abnormal findings of blood chemistry Status: Acute Assessment and Plan: T bili 5.6, direct bilirubin 2.6, indirect 0.7, AST 203, ALT 29, alk-phos 183. Review of labs shows no prior history of hyperbilirubinemia, however patient has had mild elevation of AST in the past, but otherwise normal ALT and alk-phos. Review of recent hospitalization with [facility] showed hepatic echogenicity concerning for hepatic steatosis on prior retroperitoneal ultrasound from 05/20/2022. Patient does have epigastric and right upper quadrant tenderness to palpation. WBC 13, CRP 4.4, protocol 0.9. Check abdominal ultrasound. Will consult GI. Will initiate empiric Levaquin and flagyl at this time. (3) Dysphagia: Qualifiers: Dysphagia type: unspecified Qualified Code(s): R13.10 - Dysphagia, unspecified Code(s): R13.10 - Dysphagia, unspecified Status: Acute Assessment and Plan: Speech therapy consulted Patient NPO per recommendations. Modified barium swallow and patient had laryngeal penetration with thin liquids. Changed to pureed/nectar thick diet. She reports possible esophageal dilation in the past. (4) Nausea & vomiting: Qualifiers: Vomiting type: unspecified Qualified Code(s): R11.2 - Nausea with vomiting, unspecified Code(s): R11.2 - Nausea with vomiting, unspecified Status: Acute Assessment and Plan: Emesis x1 today, per speech therapy, that appeared to be jello consistency/color. May be secondary to GERD versus stricture. Continue PPI IV BID LFTs are also elevated. GI consulted. Continue Supportive care (5) BETHEL (acute kidney injury): Code(s): N17.9 - Acute kidney failure, unspecified Status: Acute Assessment and Plan: Likely prerenal from vomiting and poor oral intake. Continue gentle hydration. Monitor I/O. (6) Generalized weakness: Code(s): R53.1 - Weakness Status: Acute Assessment and Plan: Likely secondary to deconditioning in the setting of acute illness PT/OT evaluation (7) Legal blindness: Code(s): H54.8 - Legal blindness, 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 Assessment and Plan: To be aware. Needs assistance with ADLs (8) Sjogrens syndrome: Code(s): M35.00 - Sjogren syndrome, unspecified Status: Chronic Assessment and Plan: Chronic. To be aware. Continue supportive care. (9) Generalized anxiety disorder: Code(s): F41.1 - Generalized anxiety disorder Status: Chronic Assessment and Plan: Continue home meds (10) Gastro-esophageal reflux disease without esophagitis: Code(s): K21.9 - Gastro-esophageal reflux disease without esophagitis Status: Chronic Assessment and Plan: on PPI therapy (11) Anemia: Qualifiers: Anemia type: iron deficiency Iron deficiency anemia type: unspecified iron deficiency Qualified Code(s): D50.9 - Iron deficiency anemia, unspecified Code(s): D64.9 - Anemia, unspecified Status: Acute Assessment and Plan: microcytic, hypochromic anemia. Hgb 9.3 to 8.9. Hgb 10-11 last month. Immature reticulocyte count elevated. serum iron 25 low, TIBC 267 within normal limits, iron saturation 9% low, Ferritin 56 and within normal limits. Start iron supplement daily. Tbili elevated, LDH within normal limits, haptoglobin pending
[2022-06-13 08:01] LABS: Basophils Absolute Auto 0.1 K/mm3 (0.0-0.1); Basophils Percent Auto 0.4 % (0.2-1.2); Eosinophils Absolute Auto 0.9 K/mm3 (0-0.3); Eosinophils Percent Auto 6.9 % (0-4.4); Hematocrit 30.7 % (37.0-47.0); Hemoglobin 8.9 g/dL (12.0-15.0); Immature Granulocyte Absolute 0.25 K/mm3 (0.00-0.031); Lymphocytes Absolute Auto 3.13 K/mm3 (0.9-3.2); Lymphocytes Percent Auto 25.4 % (18.3-44.2); Mean Corpuscular Hemoglobin 22.5 pg (26-34); Mean Corpuscular Volume 77.7 fl (80-100); Mean Platelet Volume 10.1 fl (7.4-10.4); Monocytes Absolute Auto 2.2 K/mm3 (0.1-0.6); Monocytes Percent Auto 17.7 % (2.6-8.5); Neutrophils Absolute Auto 5.8 K/mm3 (1.3-6.7); Neutrophils Percent Auto 47.6 % (45.5-73.1); Platelet Count Result 241 k/mm3 (150-375); Red Blood Count 3.95 M/mm3 (4.2-5.4); Red Cell Distribution Width 25.2 % (11.5-14.5); White Blood Count 12.3 K/mm3 (4.5-10.0)
[2022-06-13 08:14] LABS: Immature Reticulocyte Fraction 38.7 % (3.0-15.9); Reticulocyte Hemoglobin Conten 25.4 pg (28.2-35.7); Reticulocyte Percent 2.68 % (0.7-4.3)
[2022-06-13 08:16] LABS: Alanine Aminotransferase 29 U/L (6-35); Albumin Level 2.3 g/dL (3.5-5.1); Alkaline Phosphatase 183 U/L (38-126); Anion Gap 8 mmol/L (8-16); Aspartate Amino Transferase 203 U/L (14-36); Bilirubin,Total 5.6 mg/dL (0.2-1.3); Blood Urea Nitrogen 9 mg/dL (7-17); Calcium 7.8 mg/dL (8.4-10.2); Carbon Dioxide 24 mmol/L (22-30); Chloride 102 mmol/L (98-107); Estimated CRCL calculation 46 ml/min; Estimated Glomerular Filt Rate 44; Glucose 89 mg/dL (65-110); Potassium 3.4 mmol/L (3.4-5.0); Sodium 134 mmol/L (137-145)
[2022-06-13 08:20] LABS: Bilirubin Direct 2.6 mg/dL (0-0.3); Bilirubin Indirect 0.7 mg/dL (0-1.1); CRP 4.4 mg/dL (<1.0); Lactate Dehydrogenase 227 U/L (120-246)
[2022-06-13 08:25] LABS: Iron 25 ug/dL (37-170)
[2022-06-13 08:30] LABS: Anisocytosis 3+ (NORMAL); Platelet Estimate Adequate (Adequate)
[2022-06-13 08:31] LABS: Hypochromasia 2+ (NORMAL); Target Cells 2+ (NORMAL)
[2022-06-13 08:32] LABS: Schistocytes None Seen (NORMAL)
[2022-06-13 08:34] LABS: Percent Iron Saturation 9 % (20-50)
[2022-06-13 08:52] VITALS: BP 94/54; PULSE 82; O2SAT 94
[2022-06-13] MEDS: PANTOPRAZOLE SODIUM IV 40 MG VIAL IV PUSH ×2 (08:57→21:22)
[2022-06-13] MEDS: PREGABALIN (*CRX) 50 MG CAPSULE PO ×2 (08:57→17:23)
[2022-06-13] MEDS: TOLNAFTATE 1% POWDER 45 GM BTL 1 APPLIC TOPICAL ×2 (08:57→17:23)
[2022-06-13] MEDS: APIXABAN 5 MG TABLET PO ×2 (08:57→17:24)
[2022-06-13] MEDS: FLUTICASONE PROPIONATE 0.05% NA SPR 16 GM BTL (*BKC) 1 SPRAY NASAL (09:01)
[2022-06-13 10:04] LABS: Procalcitonin 0.9 ng/mL
[2022-06-13 10:48] LABS: Folic Acid 5.6 ng/mL (2.76->20); Vitamin B12 > 1000.0 pg/mL (239-931)
--- NOTE | 2022-06-13 11:00 | PCSTNOTE ---
Please refer to the Bedside Swallow Evaluation in the EMR. Please note, silent aspiration cannot be ruled out at bedside.
[2022-06-13] MEDS: SODIUM CHLORIDE 0.9% IV 1,000 ML 70 ML IV CONT (13:49)
[2022-06-13] MEDS: metroNIDAZOLE 500 MG/ISO 100ML 500 MG/100 ML BAG 100 MG IVPB ×2 (13:51→21:22)
[2022-06-13 14:25] VITALS: BP 103/56; PULSE 96; RESP 16; TEMP 36.9; O2SAT 90
--- NOTE | 2022-06-13 14:43 | PCSTNOTE ---
Please refer to the Modified Barium Swallow Evaluation in the EMR.
[2022-06-13 20:00] VITALS: PULSE 94; RESP 18; O2SAT 95
[2022-06-13] MEDS: MIRTAZAPINE 7.5 MG TABLET PO (21:22)
[2022-06-13 21:59] VITALS: BP 100/51; PULSE 94; RESP 18; TEMP 36.2; O2SAT 95
[2022-06-14] MEDS: metroNIDAZOLE 500 MG/ISO 100ML 500 MG/100 ML BAG 100 MG IVPB ×2 (05:26→13:46)
[2022-06-14 06:00] VITALS: BP 118/83; PULSE 102; RESP 16; TEMP 36.3; O2SAT 94
[2022-06-14 06:51] LABS: Basophils Absolute Auto 0.1 K/mm3 (0.0-0.1); Basophils Percent Auto 0.5 % (0.2-1.2); Eosinophils Absolute Auto 0.7 K/mm3 (0-0.3); Eosinophils Percent Auto 4.4 % (0-4.4); Hematocrit 30.9 % (37.0-47.0); Hemoglobin 8.9 g/dL (12.0-15.0); Immature Granulocyte Absolute 0.54 K/mm3 (0.00-0.031); Immature Granulocyte Percent A 3.5 % (0-0.5); Lymphocytes Absolute Auto 3.91 K/mm3 (0.9-3.2); Lymphocytes Percent Auto 25.7 % (18.3-44.2); Mean Corpuscular HGB Conc 28.8 g/dl (32-36); Mean Corpuscular Hemoglobin 22.8 pg (26-34); Mean Platelet Volume 10.2 fl (7.4-10.4); Monocytes Absolute Auto 2.7 K/mm3 (0.1-0.6); Monocytes Percent Auto 17.8 % (2.6-8.5); Neutrophils Absolute Auto 7.3 K/mm3 (1.3-6.7); Neutrophils Percent Auto 48.1 % (45.5-73.1); Nucleated Red Blood Cells Perc 0.1 % (0.0-0.2); Platelet Count Result 213 k/mm3 (150-375); Red Blood Count 3.91 M/mm3 (4.2-5.4); Red Cell Distribution Width 25.6 % (11.5-14.5); White Blood Count 15.2 K/mm3 (4.5-10.0)
[2022-06-14 06:55] LABS: Alanine Aminotransferase 28 U/L (6-35); Albumin Level 2.2 g/dL (3.5-5.1); Alkaline Phosphatase 167 U/L (38-126); Anion Gap 9 mmol/L (8-16); Aspartate Amino Transferase 202 U/L (14-36); Bilirubin,Total 6.2 mg/dL (0.2-1.3); Blood Urea Nitrogen 10 mg/dL (7-17); Calcium 7.6 mg/dL (8.4-10.2); Carbon Dioxide 20 mmol/L (22-30); Chloride 102 mmol/L (98-107); Estimated CRCL calculation 35 ml/min; Estimated Glomerular Filt Rate 32; Glucose 89 mg/dL (65-110); Lactate Dehydrogenase 230 U/L (120-246); Potassium 3.3 mmol/L (3.4-5.0); Sodium 131 mmol/L (137-145)
[2022-06-14 07:52] LABS: Anisocytosis 2+ (NORMAL); Hypochromasia 2+ (NORMAL); Platelet Estimate Adequate (Adequate); Schistocytes None Seen (NORMAL)
[2022-06-14] MEDS: PANTOPRAZOLE SODIUM IV 40 MG VIAL IV PUSH ×2 (08:59→20:30)
[2022-06-14] MEDS: FERROUS SULFATE 324 MG TABLET PO (08:59)
[2022-06-14] MEDS: FLUTICASONE PROPIONATE 0.05% NA SPR 16 GM BTL (*BKC) 1 SPRAY NASAL (08:59)
[2022-06-14] MEDS: APIXABAN 5 MG TABLET PO (08:59)
[2022-06-14] MEDS: PREGABALIN (*CRX) 50 MG CAPSULE PO (09:03)
[2022-06-14] MEDS: polyethylene glycoL 3350 17 GM POWD.PACK PO (09:04)
[2022-06-14] MEDS: TOLNAFTATE 1% POWDER 45 GM BTL 1 APPLIC TOPICAL ×2 (09:04→16:52)
--- NOTE | 2022-06-14 09:04 | P.PNIM_ITS ---
Progress Note: A&P Assessment and Plan (1) Abnormal finding on urinalysis: Code(s): R82.90 - Unspecified abnormal findings in urine Status: Ruled-out Assessment and Plan: UA concerning for UTI * 06/13 Rocephin changed to levaquin for GI and possible aspiration coverage until gallbladder disease ruled out. * WBC elevated, procal 0.9, CRP 4.4 on admission. * +suprapubic tenderness on exam, but also diffuse abd pain noted. * Patient is afebrile without CVA tenderness and suspect more likely acute cystitis. * Urine culture without growth. Blood cultures negative to date. (2) Hepatic steatosis: Code(s): K76.0 - Fatty (change of) liver, not elsewhere classified Status: Chronic Assessment and Plan: T bili 5.6, direct bilirubin 2.6, indirect 0.7, AST 203, ALT 29, alk-phos 183. Review of labs shows no prior history of hyperbilirubinemia, however patient has had mild elevation of AST in the past, but otherwise normal ALT and alk-phos. * Review of recent hospitalization with [facility] showed hepatic echogenicity concerning for hepatic steatosis on prior retroperitoneal ultrasound from 05/20/2022. * Patient does have epigastric and right upper quadrant tenderness to palpation. * WBC 13, CRP 4.4, protocol 0.9. * abdominal ultrasound shows diffuse hepatic steatosis, absent gallbladder (the patient reported she did not think she had prior cholecystectomy when asked during assessment) and common bile duct is not dilated. * GI consulted and appreciate recommendations. * Empiric Levaquin and flagyl, started 06/13/22 for possible GI, urine and aspiration coverage. However, given US results does not appear to be related to GI source. * May be cause of LFT elevation. Patient is also with h/o of hyponatremia; sodium currently 131 * Check hepatitis panel. * CT chest abdomen and pelvis does not show acute abdominal infection and redemonstrates demonstrates diffuse hepatic steatosis. (3) Elevated LFTs: Code(s): R79.89 - Other specified abnormal findings of blood chemistry Status: Acute Assessment and Plan: As above (4) Dysphagia: Qualifiers: Dysphagia type: unspecified Qualified Code(s): R13.10 - Dysphagia, unspecified Code(s): R13.10 - Dysphagia, unspecified Status: Acute Assessment and Plan: c/o dysphagia on admission with previous history. * Speech therapy consulted. patient was made NPO after bedside swallow. * Modified barium swallow and patient had laryngeal penetration with thin liquids. Changed to pureed/nectar thick diet. * She reports possible esophageal dilation in the past. However, patient does not seem to be a good historian * Given leukocytosis, elevated CRP and procalcitonin, will cover for aspiration pneumonia. CXR on admission, however, was without suggestion of pneumonia * Aspiration precautions (5) Anemia: Qualifiers: Anemia type: iron deficiency Iron deficiency anemia type: unspecified iron deficiency Qualified Code(s): D50.9 - Iron deficiency anemia, unspecified Code(s): D64.9 - Anemia, unspecified Status: Acute Assessment and Plan: microcytic, hypochromic anemia. Hgb 9.3 to 8.9. Hgb 10-11 last month. * Immature reticulocyte count elevated. * serum iron 25 low, TIBC 267 within normal limits, iron saturation 9% low, Ferritin 56 and within normal limits. Start iron supplement daily. * Tbili elevated, LDH within normal limits, haptoglobin pending * B12 and folate within normal limits. * Appears to be iron deficiency anemia, presumed chronic and possibly wor
--- NOTE | 2022-06-14 09:04 | PM.IMPN ---
Progress Note: A&P Assessment and Plan (1) Abnormal finding on urinalysis: Code(s): R82.90 - Unspecified abnormal findings in urine Status: Ruled-out Assessment and Plan: UA concerning for UTI 06/13 Rocephin changed to levaquin for GI and possible aspiration coverage until gallbladder disease ruled out. WBC elevated, procal 0.9, CRP 4.4 on admission. +suprapubic tenderness on exam, but also diffuse abd pain noted. Patient is afebrile without CVA tenderness and suspect more likely acute cystitis. Urine culture without growth. Blood cultures negative to date. (2) Hepatic steatosis: Code(s): K76.0 - Fatty (change of) liver, not elsewhere classified Status: Chronic Assessment and Plan: T bili 5.6, direct bilirubin 2.6, indirect 0.7, AST 203, ALT 29, alk-phos 183. Review of labs shows no prior history of hyperbilirubinemia, however patient has had mild elevation of AST in the past, but otherwise normal ALT and alk-phos. Review of recent hospitalization with [facility] showed hepatic echogenicity concerning for hepatic steatosis on prior retroperitoneal ultrasound from 05/20/2022. Patient does have epigastric and right upper quadrant tenderness to palpation. WBC 13, CRP 4.4, protocol 0.9. abdominal ultrasound shows diffuse hepatic steatosis, absent gallbladder (the patient reported she did not think she had prior cholecystectomy when asked during assessment) and common bile duct is not dilated. GI consulted and appreciate recommendations. Empiric Levaquin and flagyl, started 06/13/22 for possible GI, urine and aspiration coverage. However, given US results does not appear to be related to GI source. May be cause of LFT elevation. Patient is also with h/o of hyponatremia; sodium currently [address] chest abdomen and pelvis does not show acute abdominal infection and redemonstrates demonstrates diffuse hepatic steatosis. (3) Elevated LFTs: Code(s): R79.89 - Other specified abnormal findings of blood chemistry Status: Acute Assessment and Plan: As above (4) Dysphagia: Qualifiers: Dysphagia type: unspecified Qualified Code(s): R13.10 - Dysphagia, unspecified Code(s): R13.10 - Dysphagia, unspecified Status: Acute Assessment and Plan: c/o dysphagia on admission with previous history. Speech therapy consulted. patient was made NPO after bedside swallow. Modified barium swallow and patient had laryngeal penetration with thin liquids. Changed to pureed/nectar thick diet. She reports possible esophageal dilation in the past. However, patient does not seem to be a good historian Given leukocytosis, elevated CRP and procalcitonin, will cover for aspiration pneumonia. CXR on admission, however, was without suggestion of pneumonia Aspiration precautions (5) Anemia: Qualifiers: Anemia type: iron deficiency Iron deficiency anemia type: unspecified iron deficiency Qualified Code(s): D50.9 - Iron deficiency anemia, unspecified Code(s): D64.9 - Anemia, unspecified Status: Acute Assessment and Plan: microcytic, hypochromic anemia. Hgb 9.3 to 8.9. Hgb 10-11 last month. Immature reticulocyte count elevated. serum iron 25 low, TIBC 267 within normal limits, iron saturation 9% low, Ferritin 56 and within normal limits. Start iron supplement daily. Tbili elevated, LDH within normal limits, haptoglobin pending B12 and folate within normal limits. Appears to be iron deficiency anemia, presumed chronic and possibly worsened from prior hospitalization. Appreciate GI recommendations on if further endoscopy follow up is needed. Fecal occult blood ordered and pending (6) Leukocytosis: Qualifiers: Leukocytosis type: bandemia Qualified Code(s): D72.825 - Bandemia Code(s): D72.829 - Elevated white blood cell count, unspecified Status: Acute Assessment and Mellissa
[2022-06-14] MEDS: CEFEPIME 2 GM/NS 50 ML 2 GM/50 ML BAG IVPB ×2 (10:12→20:25)
[2022-06-14] MEDS: SILVERGEL (ELTA) 45 ML 1 APPLIC TOPICAL (10:14)
[2022-06-14] MEDS: POTASSIUM CHLORIDE 20 MEQ PACKET (FOR LIQUID) 40 MEQ PO (11:01)
[2022-06-14] MEDS: PROCHLORPERAZINE EDISYLATE 10 MG/2 ML VIAL IV PUSH (12:36)
--- NOTE | 2022-06-14 13:18 | PCPTNOTE ---
Attempted to see - Patient off floor for testing.
[2022-06-14 14:30] VITALS: BP 108/59; PULSE 103; RESP 20; TEMP 37; O2SAT 94
--- NOTE | 2022-06-14 16:11 | WPDGICN ---
Assessment and Plan Assessment and plan (1) Elevated LFTs: Code(s): R79.89 - Other specified abnormal findings of blood chemistry Status: Acute Assessment and Plan: she has hepatic steatosis, normal bile duct size and post cholecystectomy elevated bilirubin ?systemic disease will check also indirect bili, hemolysis work up, etc also recent hospitalization for ankle surgery in [facility] ? medication related, etc noted anasarca- will check spep (2) Hepatic steatosis: Code(s): K76.0 - Fatty (change of) liver, not elsewhere classified Status: Chronic Assessment and Plan: probably part of reason elevated liver enzymes but unusual elevated bili monitor (3) Nausea and vomiting in adult: Code(s): R11.2 - Nausea with vomiting, unspecified Status: Acute Assessment and Plan: antiemetics right now she is high risk for endoscopy speech evaluation (4) Dysphagia: Qualifiers: Dysphagia type: unspecified Qualified Code(s): R13.10 - Dysphagia, unspecified Code(s): R13.10 - Dysphagia, unspecified Status: Acute (5) Sjogrens syndrome: Qualifiers: Sjogren organ or system involvement: unspecified organ involvement Qualified Code(s): M35.00 - Sjogren syndrome, unspecified Code(s): M35.00 - Sjogren syndrome, unspecified Status: Chronic (6) BETHEL (acute kidney injury): Code(s): N17.9 - Acute kidney failure, unspecified Status: Acute Assessment and Plan: monitor (7) History of ankle surgery: Code(s): Z98.890 - Other specified postprocedural states Status: Acute (8) 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 Reviewed records and had left ankle wound with hardware exposure that required surgery about 1 month ago and hospitalization (reviewed labs and hb ~ 8.5 during that stay, did not find liver enzymes).? She can not provide history and was brought for evaluation due to intractable nausea and vomiting. Also noted anasarca with edema arms/legs, also low albumin 2.5, bili 6, creat 1.6, ast 200, alt 40. She is legally blind and no report of alcohol use. CT scan showed mild pulmonary edema, Mild emphysema, Diffuse hepatic steatosis. She had something to eat earlier but emesis again and now she is npo, she looks uncomfortable and asking for help, she can not give a good history and is disoriented. Review of Systems Review of Systems: ROS unobtainable: Yes unobtainable due to mental status PMFSH Past Medical History Medical History (Updated 06/14/22 @ 16:19 by Raad Roberson MD) Anasarca Aortic atherosclerosis CT 01/26 Chronic hyponatremia Congenital ectodermal dysplasia Diastolic dysfunction (02/2020) Disability Dysphagia Exposed orthopaedic hardware 05/17/22 I&D MSSA and Group B strep Generalized anxiety disorder Hepatic steatosis History of gastroesophageal reflux (GERD) History of pulmonary embolism (09/2020) Legally blind FDC (current) use of anticoagulants MALT lymphoma Monoclonal gammopathy of unknown significance (MGUS) Nausea and vomiting in adult Obesity Sjogrens syndrome Spondylosis of lumbosacral region Thoracic compression fracture Venous insufficiency Surgical History Surgical History (Updated 06/14/22 @ 09:08 by Nicky Burdick APRN) History
[2022-06-14] MEDS: MIRTAZAPINE 7.5 MG TABLET PO (20:30)
[2022-06-14 20:58] VITALS: PULSE 106; RESP 20; TEMP 37.1; O2SAT 94
[2022-06-14 21:00] VITALS: BP 146/63
[2022-06-15] MEDS: metroNIDAZOLE 500 MG/ISO 100ML 500 MG/100 ML BAG 100 MG IVPB ×4 (00:06→21:04)
[2022-06-15 03:27] VITALS: BP 110/51; PULSE 98; RESP 20; TEMP 37.4; O2SAT 98
[2022-06-15 05:50] LABS: Basophils Absolute Auto 0.1 K/mm3 (0.0-0.1); Basophils Percent Auto 0.5 % (0.2-1.2); Eosinophils Absolute Auto 0.7 K/mm3 (0-0.3); Hematocrit 30.5 % (37.0-47.0); Hemoglobin 9.1 g/dL (12.0-15.0); Immature Granulocyte Absolute 0.64 K/mm3 (0.00-0.031); Lymphocytes Absolute Auto 2.61 K/mm3 (0.9-3.2); Lymphocytes Percent Auto 16.3 % (18.3-44.2); Mean Corpuscular HGB Conc 29.8 g/dl (32-36); Mean Corpuscular Hemoglobin 23.2 pg (26-34); Mean Corpuscular Volume 77.8 fl (80-100); Mean Platelet Volume 10.2 fl (7.4-10.4); Monocytes Absolute Auto 2.3 K/mm3 (0.1-0.6); Monocytes Percent Auto 14.6 % (2.6-8.5); Neutrophils Absolute Auto 9.7 K/mm3 (1.3-6.7); Neutrophils Percent Auto 60.6 % (45.5-73.1); Nucleated Red Blood Cells Perc 0.2 % (0.0-0.2); Platelet Count Result 211 k/mm3 (150-375); Red Blood Count 3.92 M/mm3 (4.2-5.4); Red Cell Distribution Width 25.7 % (11.5-14.5); White Blood Count 16.1 K/mm3 (4.5-10.0)
[2022-06-15 05:59] LABS: Bilirubin Indirect 0.8 mg/dL (0-1.1)
[2022-06-15 06:01] LABS: Alanine Aminotransferase 29 U/L (6-35); Albumin Level 2.2 g/dL (3.5-5.1); Alkaline Phosphatase 161 U/L (38-126); Anion Gap 11 mmol/L (8-16); Aspartate Amino Transferase 213 U/L (14-36); Bilirubin,Total 7.1 mg/dL (0.2-1.3); Blood Urea Nitrogen 11 mg/dL (7-17); Calcium 7.6 mg/dL (8.4-10.2); Carbon Dioxide 19 mmol/L (22-30); Chloride 103 mmol/L (98-107); Estimated CRCL calculation 33 ml/min; Estimated Glomerular Filt Rate 29; Glucose 76 mg/dL (65-110); Potassium 3.7 mmol/L (3.4-5.0); Sodium 133 mmol/L (137-145)
[2022-06-15 06:42] LABS: Platelet Estimate Adequate (Adequate)
[2022-06-15 06:43] LABS: Anisocytosis 2+ (NORMAL); Schistocytes None Seen (NORMAL); Target Cells 2+ (NORMAL)
[2022-06-15 06:53] LABS: Hepatitis B Surface Antigen Negative (Negative)
[2022-06-15 07:03] LABS: HAV RESULT Negative (Negative)
[2022-06-15 07:09] LABS: Hepatitis C Virus Antibody Negative (Negative)
--- NOTE | 2022-06-15 08:05 | PC.NURSE ---
Pt NPO due to suspected aspiration/swallow impairment Unable to give PO morning medications due to this
[2022-06-15] MEDS: MORPHINE SULFATE (*CRX) 2 MG/ML INJ IV PUSH (08:12)
[2022-06-15] MEDS: CEFEPIME 2 GM/NS 50 ML 2 GM/50 ML BAG IVPB ×2 (08:13→20:24)
[2022-06-15] MEDS: FLUTICASONE PROPIONATE 0.05% NA SPR 16 GM BTL (*BKC) 1 SPRAY NASAL (08:13)
[2022-06-15] MEDS: PANTOPRAZOLE SODIUM IV 40 MG VIAL IV PUSH ×2 (08:13→20:36)
[2022-06-15] MEDS: SILVERGEL (ELTA) 45 ML 1 APPLIC TOPICAL (08:14)
[2022-06-15] MEDS: TOLNAFTATE 1% POWDER 45 GM BTL 1 APPLIC TOPICAL ×2 (08:14→17:41)
[2022-06-15 08:19] LABS: Hepatitis B Core IgM Result Negative (Negative)
--- NOTE | 2022-06-15 09:29 | PCOTNOTE ---
Per patient's family, patient has been dependent with ADLs and mobility tasks for the past 4 months. Spoke with hospitalist Nicky Burdick who is agreeable to canceling therapy orders due to patient being at functional baseline.
[2022-06-15] MEDS: PROCHLORPERAZINE EDISYLATE 10 MG/2 ML VIAL IV PUSH (09:30)
--- NOTE | 2022-06-15 10:24 | P.PNIM_ITS ---
Progress Note: A&P Assessment and Plan (1) Hepatic steatosis: Code(s): K76.0 - Fatty (change of) liver, not elsewhere classified Status: Chronic Assessment and Plan: T bili 5.6, direct bilirubin 2.6, indirect 0.7, AST 203, ALT 29, alk-phos 183. Review of labs shows no prior history of hyperbilirubinemia, however patient has had mild elevation of AST in the past, but otherwise normal ALT and alk-phos. * Review of recent hospitalization with [facility] showed hepatic echogenicity concerning for hepatic steatosis on prior retroperitoneal ultrasound from 05/20/2022. * Patient does have epigastric and right upper quadrant tenderness to palpation. * WBC 13, CRP 4.4, protocol 0.9. * abdominal ultrasound shows diffuse hepatic steatosis, absent gallbladder (the patient reported she did not think she had prior cholecystectomy when asked during assessment) and common bile duct is not dilated. * GI consulted and appreciate recommendations. * Empiric Levaquin and flagyl, started 06/13/22 for possible GI, urine and aspiration coverage. However, given US results does not appear to be related to GI source. * May be cause of LFT elevation. Patient is also with h/o of hyponatremia; sodium currently 131 * hepatitis panel negative. * CT chest abdomen and pelvis does not show acute abdominal infection and redemonstrates demonstrates diffuse hepatic steatosis. * 06/15/22 LFTs trending up. GI is following. Limit hepatotoxic medications. Will check for viral disease. c/o pruritus and will add cholestyramine powder daily. (2) Elevated LFTs: Code(s): R79.89 - Other specified abnormal findings of blood chemistry Status: Acute Assessment and Plan: As above (3) Nausea & vomiting: Qualifiers: Vomiting type: unspecified Qualified Code(s): R11.2 - Nausea with vomiting, unspecified Code(s): R11.2 - Nausea with vomiting, unspecified Status: Acute Assessment and Plan: Emesis x1 06/13 and prior to admission. Per speech therapy, emesis appeared to be jello consistency/color and occured with coughing during bedside swallow evaluation. * May be secondary to GERD versus stricture. * Continue PPI IV BID * LFTs are also elevated. * GI consulted and appreciate recommendations. * Continue p.r.n. antiemetics * Aspiration precautions (4) BETHEL (acute kidney injury): Code(s): N17.9 - Acute kidney failure, unspecified Status: Acute Assessment and Plan: Likely prerenal from vomiting and poor oral intake. * gentle hydration initiated, however, 06/14 worsening renal function- creatinine 1.6 and GFR 37, sodium 131 but is chronic. * 06/14 stop IV fluids. * Trend renal function daily. * consult nephrology if continued to trend up. * Monitor I/O. * Avoid nephrotoxic agents. * 06/15 Increased creatinine 1.7, BUN 23, GFR 26 today. I/O show poor intake and bladder scan shows 175 mL this morning with only 1 incontinent episode overnight, will add D5LR@75 mL/hour. Strict I/O monitoring. Consider adding a indwelling Pride catheter for close I&O monitoring. Attempts to use external catheter was not tolerated. (5) Leukocytosis: Qualifiers: Leukocytosis type: bandemia Qualified Code(s): D72.825 - Bandemia Code(s): D72.829 - Elevated white blood cell count, unspecified Status: Acute Assessment and Plan: Etiology unclear. Patient has a h/o LLE wound with exposed hardware [facility]. Culture from our facility reviewed and showed Group B strep and staph aureus resistant to cipro, clindamycin and le
--- NOTE | 2022-06-15 10:24 | PM.IMPN ---
Progress Note: A&P Assessment and Plan (1) Hepatic steatosis: Code(s): K76.0 - Fatty (change of) liver, not elsewhere classified Status: Chronic Assessment and Plan: T bili 5.6, direct bilirubin 2.6, indirect 0.7, AST 203, ALT 29, alk-phos 183. Review of labs shows no prior history of hyperbilirubinemia, however patient has had mild elevation of AST in the past, but otherwise normal ALT and alk-phos. Review of recent hospitalization with [facility] showed hepatic echogenicity concerning for hepatic steatosis on prior retroperitoneal ultrasound from 05/20/2022. Patient does have epigastric and right upper quadrant tenderness to palpation. WBC 13, CRP 4.4, protocol 0.9. abdominal ultrasound shows diffuse hepatic steatosis, absent gallbladder (the patient reported she did not think she had prior cholecystectomy when asked during assessment) and common bile duct is not dilated. GI consulted and appreciate recommendations. Empiric Levaquin and flagyl, started 06/13/22 for possible GI, urine and aspiration coverage. However, given US results does not appear to be related to GI source. May be cause of LFT elevation. Patient is also with h/o of hyponatremia; sodium currently [address] chest abdomen and pelvis does not show acute abdominal infection and redemonstrates demonstrates diffuse hepatic steatosis. 06/15/22 LFTs trending up. GI is following. Limit hepatotoxic medications. Will check for viral disease. c/o pruritus and will add cholestyramine powder daily. (2) Elevated LFTs: Code(s): R79.89 - Other specified abnormal findings of blood chemistry Status: Acute Assessment and Plan: As above (3) Nausea & vomiting: Qualifiers: Vomiting type: unspecified Qualified Code(s): R11.2 - Nausea with vomiting, unspecified Code(s): R11.2 - Nausea with vomiting, unspecified Status: Acute Assessment and Plan: Emesis x1 06/13 and prior to admission. Per speech therapy, emesis appeared to be jello consistency/color and occured with coughing during bedside swallow evaluation. May be secondary to GERD versus stricture. Continue PPI IV BID LFTs are also elevated. GI consulted and appreciate recommendations. Continue p.r.n. antiemetics Aspiration precautions (4) BETHEL (acute kidney injury): Code(s): N17.9 - Acute kidney failure, unspecified Status: Acute Assessment and Plan: Likely prerenal from vomiting and poor oral intake. gentle hydration initiated, however, 06/14 worsening renal function- creatinine 1.6 and GFR 37, sodium 131 but is chronic. 06/14 stop IV fluids. Trend renal function daily. consult nephrology if continued to trend up. Monitor I/O. Avoid nephrotoxic agents. 06/15 Increased creatinine 1.7, BUN 23, GFR 26 today. I/O show poor intake and bladder scan shows 175 mL this morning with only 1 incontinent episode overnight, will add D5LR@75 mL/hour. Strict I/O monitoring. Consider adding a indwelling Pride catheter for close I&O monitoring. Attempts to use external catheter was not tolerated. (5) Leukocytosis: Qualifiers: Leukocytosis type: bandemia Qualified Code(s): D72.825 - Bandemia Code(s): D72.829 - Elevated white blood cell count, unspecified Status: Acute Assessment and Plan: Etiology unclear. Patient has a h/o LLE wound with exposed hardware treated at [facility] last month. Culture from our facility reviewed and showed Group B strep and staph aureus resistant to cipro, clindamycin and levaquin. She also has evidence of dysphagia and may have underlying aspiration pneumonia. WBC increased 15.2 with left shift (increased from 06/13 and admission), elevated CRP 4.4, procalcitonin 0.9 Urine and blood cultures without growth Check MRSA nares for colonization Wound care consulted 06/14/22 changed antibiotics for coverage of skin and possible aspiration pneumonia- Vancomycin IV
[2022-06-15 12:02] LABS: CRP 5.6 mg/dL (<1.0)
--- NOTE | 2022-06-15 12:27 | PC.NURSE ---
Addendum entered by Jose Grant, PEDRO 06/15/22 13:04: Pt still off floor for testing, 1135 Questran and mineral lotion to be given when pt returns Original Note: Pt off floor for testing
[2022-06-15 12:58] LABS: Procalcitonin 1.6 ng/mL
[2022-06-15 13:20] LABS: Hemoglobin A1C 5.4 % (<5.7)
[2022-06-15] MEDS: EUCERIN CREAM 120 GM JAR 1 APPLIC TOPICAL (13:37)
[2022-06-15] MEDS: DEXTROSE 5%/LACTATED RINGERS 1,000 ML 75 ML IV CONT (13:37)
[2022-06-15] MEDS: CHOLESTYRAMINE (W/ SUGAR) 4 GM POWD.PACK PO (13:38)
[2022-06-15 14:31] LABS: Glucose Point of Care 84 mg/dl (65-105)
--- NOTE | 2022-06-15 14:37 | WPDGIPROGNO ---
Progress Note: A&P Assessment and Plan (1) Jaundice: Code(s): R17 - Unspecified jaundice Status: Acute Assessment and Plan: liver imaging reviewed and normal biliary system hepatitis panel negative ? systemic disease, drug induced, etc will get serology for EBV and CMV, also rule out other chronic liver conditions (2) Hepatic steatosis: Code(s): K76.0 - Fatty (change of) liver, not elsewhere classified Status: Chronic (3) Elevated LFTs: Code(s): R79.89 - Other specified abnormal findings of blood chemistry Status: Acute (4) Nausea and vomiting in adult: Code(s): R11.2 - Nausea with vomiting, unspecified Status: Acute Assessment and Plan: ok to resume special thickened diet with aspiration precaution (5) Anasarca: Code(s): R60.1 - Generalized edema Status: Acute (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, 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 Subjective Date/time seen: 06/15/22 14:37 Interval history: she just had something to eat, no report of more n/v. Patient is thirsty Review of Systems Review of Systems: All systems reviewed & are unremarkable except as noted in HPI and below Exam Const: General: ill appearing chronically Other: laying in bed, obese, anasarca HENMT: Face/Nose/Sinus: Normal nares present Eyes: Other: blind and eyes are closed Neck: Neck: supple Resp: Auscultation: no wheezes and diminished lung sounds Cardio: Rate: regular rate GI: GI Palp: Yes Soft to palpation, No Tenderness to palpation present (GI) and No Guarding due to palpation present (GI) Skin: Other: jaundice Neuro: Other: she talks and is more alert today Extrem: Other: diffuse edema in legs and arms Psych: Affect: Anxious affect present Objective Data Vital Signs Vital Signs: Vital Signs - 24 hr 06/14/22 20:58 06/14/22 21:00 06/15/22 03:27 Temperature 98.8 F 99.4 F Pulse Rate 106 H 98 Respiratory Rate 20 20 Blood Pressure 146/63 H 110/51 L Pulse Oximetry 94 98 Oxygen Delivery 06/15/22 08:00 Temperature Pulse Rate Respiratory Rate Blood Pressure Pulse Oximetry Oxygen Delivery Room Air Intake/Output Intake/Output: Intake & Output 06/12/22 06/13/22 06/14/22 06/15/22 23:59 23:59 23:59 23:59 Intake Total 50 1030 570 200 Balance 50 1030 570 200 Meds/Results Medications: Active Medications Generic Name Dose Route Start Last Admin Trade Name Freq PRN Reason Stop Dose Admin Acetaminophen 650 mg 06/15/22 10:24 Acetaminophen 325 Mg Tablet PO Q8HR PRN Mild Pain (1-3) or Fever Apixaban 5 mg 06/12/22 21:30 06/15/22 08:09 Apixaban 5 Mg Tablet PO Not Given BID DAYSI Cholestyramine Resin 4 gm 06/15/22 11:35 06/15/22 13:38 Cholestyramine (W/ Sugar) 4 Gm Powd.Pack PO 4 gm QAM@1100 DAYSI Administration Dextrose 12.5 gm 06/15/22 10:37 Dextrose 50% 25 Gm/50 Ml Syringe IV PUSH PRN PRN Hypoglycemia Protocol Ferrous Sulfate 324 mg 06/14/22 08:00 06/15/22 08:09 Ferrous Sulfate 324 Mg Tablet PO Not Given DAILY@0800 DAYSI Fluticasone Propionate 1 spray 06/13/22 09:00 06/15/22 08:13 Fluticasone Propionate 0.05% Na Spr 16 Gm Btl (*Bkc) NASAL 1 spray DAILY DAYSI Administration Glucagon 1 mg 06/15/22 10:37 Glucagon For Inj 1 Mg Vial IM PRN PRN Hypoglycemia Protocol Glucose 15 gm 06/15/22 10:37 Glucose Oral Gel 15 Gm Of Glucse In 37.5 Gm Tube PO PRN PRN Hypoglycemia Protocol Guaifenesin 600 mg 06/13/22 14:37 Guaifenesin 12 Hr 600 Mg Tabcr PO Q12HR PRN cough Metronidazole 500 mg in 100 mls @ 100 mls/hr 06/13/22 12:00 06/15/22 13:37 Flagyl 500 Mg/Iso Soln 100 Ml IVPB 100 mls/hr Q8HR DAYSI Administration Cefepime HCl 2 gm in 50 mls @ 100 mls/hr 06/14/22 09:00 06/15/22 08:13 Maxipime 2 Gm/Ns 50 Ml IVPB 1
[2022-06-15 16:52] LABS: Glucose Point of Care 91 mg/dl (65-105)
[2022-06-15] MEDS: APIXABAN 5 MG TABLET PO (17:43)
[2022-06-15] MEDS: PREGABALIN (*CRX) 50 MG CAPSULE PO (17:43)
[2022-06-15] MEDS: MIRTAZAPINE 7.5 MG TABLET PO (20:35)
[2022-06-15] MEDS: LORazepam INJ (*CRX) 2 MG/ML VIAL 0.5 MG IV PUSH (21:06)
[2022-06-15 21:18] VITALS: BP 125/56; PULSE 110; RESP 20; TEMP 36.8; O2SAT 97
[2022-06-15 21:28] LABS: Influenza A QL RT-PCR Negative (Negative); Influenza B QL RT-PCR Negative (Negative); RSV RNA, RT-PCR Negative (Negative); SARS-CoV-2 RNA PCR Negative (Negative)
[2022-06-16 04:11] LABS: Glucose Point of Care 102 mg/dl (65-105)
[2022-06-16 06:00] VITALS: BP 115/57; PULSE 100; RESP 20; TEMP 36.9; O2SAT 94
[2022-06-16] MEDS: metroNIDAZOLE 500 MG/ISO 100ML 500 MG/100 ML BAG 100 MG IVPB (06:00)
--- NOTE | 2022-06-16 06:31 | PC.NURSE ---
COMPUTER DOWN TIME [id number]
[2022-06-16 07:22] LABS: Alanine Aminotransferase 27 U/L (6-35); Albumin Level 2.1 g/dL (3.5-5.1); Alkaline Phosphatase 151 U/L (38-126); Anion Gap 10 mmol/L (8-16); Aspartate Amino Transferase 163 U/L (14-36); Bilirubin,Total 8.1 mg/dL (0.2-1.3); Blood Urea Nitrogen 13 mg/dL (7-17); Calcium 7.3 mg/dL (8.4-10.2); Carbon Dioxide 18 mmol/L (22-30); Chloride 102 mmol/L (98-107); Estimated CRCL calculation 28 ml/min; Estimated Glomerular Filt Rate 24; Glucose 104 mg/dL (65-110); Potassium 3.3 mmol/L (3.4-5.0); Sodium 130 mmol/L (137-145)
[2022-06-16 07:57] LABS: Glucose Point of Care 105 mg/dl (65-105)
[2022-06-16 08:09] LABS: HIV 1/2 Ab P24 Ag Result Negative (Negative)
[2022-06-16] MEDS: FERROUS SULFATE 324 MG TABLET PO (08:41)
[2022-06-16] MEDS: APIXABAN 5 MG TABLET PO ×2 (08:41→16:11)
[2022-06-16] MEDS: CEFEPIME 2 GM/NS 50 ML 2 GM/50 ML BAG IVPB (08:41)
[2022-06-16] MEDS: PREGABALIN (*CRX) 50 MG CAPSULE PO ×2 (08:41→16:11)
[2022-06-16] MEDS: PANTOPRAZOLE SODIUM IV 40 MG VIAL IV PUSH ×2 (08:42→20:22)
[2022-06-16] MEDS: EUCERIN CREAM 120 GM JAR 1 APPLIC TOPICAL (08:42)
[2022-06-16] MEDS: FLUTICASONE PROPIONATE 0.05% NA SPR 16 GM BTL (*BKC) 1 SPRAY NASAL (08:42)
[2022-06-16] MEDS: TOLNAFTATE 1% POWDER 45 GM BTL 1 APPLIC TOPICAL ×2 (08:43→16:12)
[2022-06-16] MEDS: SILVERGEL (ELTA) 45 ML 1 APPLIC TOPICAL (08:43)
[2022-06-16] MEDS: polyethylene glycoL 3350 17 GM POWD.PACK PO (08:54)
[2022-06-16 09:05] VITALS: BP 135/70; PULSE 106; O2SAT 93
[2022-06-16 09:11] LABS: Monoscreen Negative (Negative); Negative Monotest Control Negative (Negative); Positive Monotest Control Positive (Positive)
[2022-06-16] MEDS: POTASSIUM CHLORIDE 20 MEQ PACKET (FOR LIQUID) 40 MEQ PO (09:13)
[2022-06-16 09:54] LABS: Basophils Absolute Auto 0.1 K/mm3 (0.0-0.1); Basophils Percent Auto 0.4 % (0.2-1.2); Eosinophils Absolute Auto 1.4 K/mm3 (0-0.3); Eosinophils Percent Auto 7.5 % (0-4.4); Hematocrit 28.4 % (37.0-47.0); Hemoglobin 8.3 g/dL (12.0-15.0); Immature Granulocyte Absolute 0.96 K/mm3 (0.00-0.031); Immature Granulocyte Percent A 5.2 % (0-0.5); Lymphocytes Absolute Auto 2.81 K/mm3 (0.9-3.2); Lymphocytes Percent Auto 15.2 % (18.3-44.2); Mean Corpuscular HGB Conc 29.2 g/dl (32-36); Mean Corpuscular Hemoglobin 23.2 pg (26-34); Mean Corpuscular Volume 79.3 fl (80-100); Mean Platelet Volume 11.3 fl (7.4-10.4); Monocytes Absolute Auto 2.7 K/mm3 (0.1-0.6); Monocytes Percent Auto 14.3 % (2.6-8.5); Neutrophils Absolute Auto 10.6 K/mm3 (1.3-6.7); Neutrophils Percent Auto 57.4 % (45.5-73.1); Nucleated Red Blood Cells Perc 0.1 % (0.0-0.2); Platelet Count Result 208 k/mm3 (150-375); Red Blood Count 3.58 M/mm3 (4.2-5.4); Red Cell Distribution Width 25.5 % (11.5-14.5); White Blood Count 18.5 K/mm3 (4.5-10.0)
--- NOTE | 2022-06-16 10:39 | PCSTNOTE ---
The patient treatment was not able to be completed on 06/16 due to not arousing for therapy; patient appeared to be sleeping, then said, What... as if irritated and would not arouse for therapy session. Will plan to continue treatment per plan of care.
[2022-06-16 10:54] VITALS: BMI 42.0
[2022-06-16 11:56] LABS: Glucose Point of Care 103 mg/dl (65-105)
[2022-06-16] MEDS: CHOLESTYRAMINE (W/ SUGAR) 4 GM POWD.PACK PO (12:04)
--- NOTE | 2022-06-16 12:05 | P.PNIM_ITS ---
Progress Note: A&P Assessment and Plan (1) Hepatic steatosis: Code(s): K76.0 - Fatty (change of) liver, not elsewhere classified Status: Chronic Assessment and Plan: LFTs coming down slowly * Review of recent hospitalization with [facility] showed hepatic echogenicity concerning for hepatic steatosis on prior retroperitoneal ultrasound from 05/20/2022. * abdominal ultrasound shows diffuse hepatic steatosis, absent gallbladder (the patient reported she did not think she had prior cholecystectomy when asked during assessment) and common bile duct is not dilated. * GI consulted and appreciate recommendations. * hepatitis panel negative. * CT chest abdomen and pelvis does not show acute abdominal infection and redemonstrates demonstrates diffuse hepatic steatosis. * Will check for viral disease. EBV/CMV pending (2) Elevated LFTs: Code(s): R79.89 - Other specified abnormal findings of blood chemistry Status: Acute Assessment and Plan: As above (3) Nausea & vomiting: Qualifiers: Vomiting type: unspecified Qualified Code(s): R11.2 - Nausea with vomiting, unspecified Code(s): R11.2 - Nausea with vomiting, unspecified Status: Acute Assessment and Plan: Emesis x1 06/13 and prior to admission. Per speech therapy, emesis appeared to be jello consistency/color and occured with coughing during bedside swallow evaluation. * May be secondary to GERD versus stricture. * Continue PPI IV BID * LFTs are also elevated. * GI consulted and appreciate recommendations. * Continue p.r.n. antiemetics * Aspiration precautions (4) BETHEL (acute kidney injury): Code(s): N17.9 - Acute kidney failure, unspecified Status: Acute Assessment and Plan: Likely prerenal from vomiting and poor oral intake. * Creatinine going up even with IV fluids on board. We will consult Nephrology (5) Leukocytosis: Qualifiers: Leukocytosis type: bandemia Qualified Code(s): D72.825 - Bandemia Code(s): D72.829 - Elevated white blood cell count, unspecified Status: Acute Assessment and Plan: Etiology unclear. Patient has a h/o LLE wound with exposed hardware treated at [facility] last month. Culture from our facility reviewed and showed Group B strep and staph aureus resistant to cipro, clindamycin and levaquin. She also has evidence of dysphagia and may have underlying aspiration pneumonia. * No evidence of MRSA. Will discontinue vancomycin. Continue IV cephalosporin (6) Dysphagia: Qualifiers: Dysphagia type: unspecified Qualified Code(s): R13.10 - Dysphagia, unspecified Code(s): R13.10 - Dysphagia, unspecified Status: Acute Assessment and Plan: c/o dysphagia on admission with previous history. * Speech therapy consulted. patient was made NPO after bedside swallow. * Modified barium swallow and patient had laryngeal penetration with thin liquids. Changed to pureed/nectar thick diet. * Aspiration precautions (7) Abnormal finding on urinalysis: Code(s): R82.90 - Unspecified abnormal findings in urine Status: Ruled-out Assessment and Plan: UA concerning for UTI * 06/13 Rocephin changed to levaquin for GI and possible aspiration coverage until gallbladder disease ruled out. * WBC elevated, procal 0.9, CRP 4.4 on admission. * +suprapubic tenderness on exam, but also diffuse abd pain noted. * Patient is afebrile without CVA tenderness and suspect more likely acute cystitis. * Urine culture without growth. Blood cultures negative to date. (8)
--- NOTE | 2022-06-16 12:05 | PM.IMPN ---
Progress Note: A&P Assessment and Plan (1) Hepatic steatosis: Code(s): K76.0 - Fatty (change of) liver, not elsewhere classified Status: Chronic Assessment and Plan: LFTs coming down slowly Review of recent hospitalization with [facility] showed hepatic echogenicity concerning for hepatic steatosis on prior retroperitoneal ultrasound from 05/20/2022. abdominal ultrasound shows diffuse hepatic steatosis, absent gallbladder (the patient reported she did not think she had prior cholecystectomy when asked during assessment) and common bile duct is not dilated. GI consulted and appreciate recommendations. hepatitis panel negative. CT chest abdomen and pelvis does not show acute abdominal infection and redemonstrates demonstrates diffuse hepatic steatosis. Will check for viral disease. EBV/CMV pending (2) Elevated LFTs: Code(s): R79.89 - Other specified abnormal findings of blood chemistry Status: Acute Assessment and Plan: As above (3) Nausea & vomiting: Qualifiers: Vomiting type: unspecified Qualified Code(s): R11.2 - Nausea with vomiting, unspecified Code(s): R11.2 - Nausea with vomiting, unspecified Status: Acute Assessment and Plan: Emesis x1 06/13 and prior to admission. Per speech therapy, emesis appeared to be jello consistency/color and occured with coughing during bedside swallow evaluation. May be secondary to GERD versus stricture. Continue PPI IV BID LFTs are also elevated. GI consulted and appreciate recommendations. Continue p.r.n. antiemetics Aspiration precautions (4) BETHEL (acute kidney injury): Code(s): N17.9 - Acute kidney failure, unspecified Status: Acute Assessment and Plan: Likely prerenal from vomiting and poor oral intake. Creatinine going up even with IV fluids on board. We will consult Nephrology (5) Leukocytosis: Qualifiers: Leukocytosis type: bandemia Qualified Code(s): D72.825 - Bandemia Code(s): D72.829 - Elevated white blood cell count, unspecified Status: Acute Assessment and Plan: Etiology unclear. Patient has a h/o LLE wound with exposed hardware treated at [facility] last month. Culture from our facility reviewed and showed Group B strep and staph aureus resistant to cipro, clindamycin and levaquin. She also has evidence of dysphagia and may have underlying aspiration pneumonia. No evidence of MRSA. Will discontinue vancomycin. Continue IV cephalosporin (6) Dysphagia: Qualifiers: Dysphagia type: unspecified Qualified Code(s): R13.10 - Dysphagia, unspecified Code(s): R13.10 - Dysphagia, unspecified Status: Acute Assessment and Plan: c/o dysphagia on admission with previous history. Speech therapy consulted. patient was made NPO after bedside swallow. Modified barium swallow and patient had laryngeal penetration with thin liquids. Changed to pureed/nectar thick diet. Aspiration precautions (7) Abnormal finding on urinalysis: Code(s): R82.90 - Unspecified abnormal findings in urine Status: Ruled-out Assessment and Plan: UA concerning for UTI 06/13 Rocephin changed to levaquin for GI and possible aspiration coverage until gallbladder disease ruled out. WBC elevated, procal 0.9, CRP 4.4 on admission. +suprapubic tenderness on exam, but also diffuse abd pain noted. Patient is afebrile without CVA tenderness and suspect more likely acute cystitis. Urine culture without growth. Blood cultures negative to date. (8) Sjogrens syndrome: Qualifiers: Sjogren organ or system involvement: unspecified organ involvement Qualified Code(s): M35.00 - Sjogren syndrome, unspecified Code(s): M35.00 - Sjogren syndrome, unspecified Status: Chronic Assessment and Plan: Chronic. To be aware. Continue supportive care. (9) Generalized anxiety disorder: Code(s): F41.1 - Genera
[2022-06-16 12:44] LABS: Anisocytosis 1+ (NORMAL); Burr Cells 2+ (NORMAL); Platelet Estimate Adequate (Adequate); Schistocytes None Seen (NORMAL)
--- NOTE | 2022-06-16 13:41 | WPDGIPROGNO ---
Progress Note: A&P Assessment and Plan (1) Jaundice: Code(s): R17 - Unspecified jaundice Status: Acute Assessment and Plan: liver imaging reviewed and normal biliary system, she does not have gallbladder hepatitis panel negative ? systemic disease, drug induced (apparently she developed rash after an antibiotic during recent hospitalization- now with cholestatic pattern), etc pending serology for EBV and CMV (mono negative), also rule out other chronic liver conditions (2) Hepatic steatosis: Code(s): K76.0 - Fatty (change of) liver, not elsewhere classified Status: Chronic (3) Elevated LFTs: Code(s): R79.89 - Other specified abnormal findings of blood chemistry Status: Acute Assessment and Plan: monitor (4) Nausea and vomiting in adult: Code(s): R11.2 - Nausea with vomiting, unspecified Status: Acute Assessment and Plan: she is on special thickened diet with aspiration precaution (5) Anasarca: Code(s): R60.1 - Generalized edema Status: Acute Assessment and Plan: also renal failure pending upep (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 She is thirsty and would like to drink more (now on thickened liquids and does not like consistency much) Review of Systems Review of Systems: All systems reviewed & are unremarkable except as noted in HPI and below Exam Const: General: ill appearing chronically Other: laying in bed, obese, anasarca HENMT: Face/Nose/Sinus: Normal nares present Eyes: Other: blind and eyes are closed Neck: Neck: supple Resp: Auscultation: no wheezes and diminished lung sounds Cardio: Rate: regular rate GI: GI Palp: Yes Soft to palpation, No Tenderness to palpation present (GI) and No Guarding due to palpation present (GI) Skin: Other: jaundice Neuro: Other: she talks, alert Extrem: Other: diffuse edema in legs and arms Psych: Affect: Anxious affect present Objective Data Vital Signs Vital Signs: Vital Signs - 24 hr 06/15/22 21:18 06/16/22 06:00 06/16/22 09:05 Temperature 98.2 F 98.4 F Pulse Rate 110 H 100 106 H Respiratory Rate 20 20 Blood Pressure 125/56 L 115/57 L 135/70 Pulse Oximetry 97 94 93 Oxygen Delivery 06/16/22 08:00 Temperature Pulse Rate Respiratory Rate Blood Pressure Pulse Oximetry Oxygen Delivery Room Air Intake/Output Intake/Output: Intake & Output 06/13/22 06/14/22 06/15/22 06/16/22 23:59 23:59 23:59 23:59 Intake Total 1030 713 869 9929 Output Total 100 Balance 1030 640 166 3657 Meds/Results Medications: Active Medications Generic Name Dose Route Start Last Admin Trade Name Freq PRN Reason Stop Dose Admin Acetaminophen 650 mg 06/15/22 10:24 Acetaminophen 325 Mg Tablet PO Q8HR PRN Mild Pain (1-3) or Fever Apixaban 5 mg 06/12/22 21:30 06/16/22 08:41 Apixaban 5 Mg Tablet PO 5 mg BID DAYSI Administration Cholestyramine Resin 4 gm 06/15/22 11:35 06/16/22 12:04 Cholestyramine (W/ Sugar) 4 Gm Powd.Pack PO 4 gm QAM@1100 DAYSI Administration Dextrose 12.5 gm 06/15/22 10:37 Dextrose 50% 25 Gm/50 Ml Syringe IV PUSH PRN PRN Hypoglycemia Protocol Ferrous Sulfate 324 mg 06/14/22 08:00 06/16/22 08:41 Ferrous Sulfate 324 Mg Tablet PO 324 mg DAILY@0800 DAYSI Administration Fluticasone Propionate 1 spray 06/13/22 09:00 06/16/22 08:42 Fluticasone Propionate 0.05% Na Spr 16 Gm Btl (*Bkc) NASAL 1 spray DAILY DAYSI Administration Glucagon 1 mg 06/15/22 10:37 Glucagon For Inj 1 Mg Vial IM PRN PRN Hypoglycemia Prot
[2022-06-16 14:00] VITALS: BP 103/56; PULSE 105; RESP 20; TEMP 37.1; O2SAT 98
[2022-06-16 14:09] LABS: Free T4 Free Thyroxine Reflex 2.66 ng/dL (0.78-2.19)
--- NOTE | 2022-06-16 14:20 | PM.CNNEP ---
Assessment and Plan Assessment and plan (1) BETHEL (acute kidney injury): Code(s): N17.9 - Acute kidney failure, unspecified Status: Acute Assessment and Plan: baseline creatinine ~ 0.6 - 1.0mg/dl about a month ago however, a reading of 2.7mg/dl noted in early May 2022 (lab error?) history would suggest volume depletion however, no improvement with IVF hydration and having issues with edema liver dysfunction playing a role? possible AIN from recent antibiotic exposure? check urine electrolytes, urine eosinophils, and renal ultrasound recheck UA -- possible UTI given admission urinalysis(?) follow trend of repeat labs and UOP (2) Hepatic steatosis: Code(s): K76.0 - Fatty (change of) liver, not elsewhere classified Status: Chronic Assessment and Plan: testing/imaging noted GI following with recommendations noted continue to follow (3) Nausea & vomiting: Qualifiers: Vomiting type: unspecified Qualified Code(s): R11.2 - Nausea with vomiting, unspecified Code(s): R11.2 - Nausea with vomiting, unspecified Status: Acute Assessment and Plan: on PPI and prn antiemetics aspiration precautions follow symptoms (4) Elevated LFTs: Code(s): R79.89 - Other specified abnormal findings of blood chemistry Status: Acute Assessment and Plan: partly related to #2 (?) GI following follow trend I will continue to follow the patient with you while she remains hospitalized make further recommendations during her hospital course. Thank you for allowing me to participate in the care of this patient. History of Present Illness Reason for Consult Consult date: 06/16/22 Reason for consult: acute renal failure Chief Complaint Chief complaint: UTI, BETHEL, nausea/vomiting History of Present Illness Narrative: Most of the information I obtained is from review of the electronic medical record as well as question with the physician/ nurses involved in the patient's care as is difficult for the patient to give a complete and concise history of the events led to her admission to the hospital. The patient is a 76-year-old female with a past medical history as outlined below presented to [facility] Emergency room for further evaluation of dysphagia. Apparently, the patient was having significant dry heaves at home and was unable to keep food or water down. These symptoms continued and progressively worsened until eventually she called EMS and was subsequent transferred to the ER for further assessment. Workup and evaluation emergency room demonstrated the patient to be hemodynamically stable and in no acute distress. She reports that she is still thirsty and she was given a drink of water the emergency room and she was able to keep this down without any issues or problems. On further evaluation, she had significant swelling and edema in both her upper and lower extremities and routine blood tests were significant for significantly elevated liver function tests. Her creatinine was 1.1 and there are no other critical electrolyte abnormalities noted. The patient did have apparently a recent hospitalization at [facility] and there was no mention of any issues/problems with her liver function at that time. Given these laboratory abnormalities and her exam findings, she was subsequently admitted to the hospital for further evaluation and therapy. Since her admission, her renal function /creatinine has been slowly deteriorating. Furthermore, it appears that her urine output has been somewhat the creased as well although her I/Os are not that accurate. She has been seen in consultation by Gastroenterology with regard to her elevated liver function tests as well. Renal consultation was requested due to her acute kidney injury/acute renal failure. For review of her records, her kidney function appears to be normal at baseline a
[2022-06-16] MEDS: DEXTROSE 5%/LACTATED RINGERS 1,000 ML 75 ML IV CONT (16:15)
[2022-06-16 16:56] LABS: Glucose Point of Care 111 mg/dl (65-105)
[2022-06-16] MEDS: ONDANSETRON INJ 4 MG/2 ML VIAL IV PUSH (20:22)
[2022-06-16] MEDS: MIRTAZAPINE 7.5 MG TABLET PO (20:22)
[2022-06-16] MEDS: cefTRIAXone 2 GM/NS 100 ML 2 GM/100 ML BAG IVPB (20:22)
[2022-06-16 20:45] LABS: Glucose Point of Care 124 mg/dl (65-105)
[2022-06-16 21:11] VITALS: BP 107/63; PULSE 110; RESP 20; TEMP 36.9; O2SAT 95
[2022-06-17 04:25] LABS: Creatinine Urine 236.4 mg/dL; Total Protein Urine Random 44 mg/dL; Ur Ttl Prot Creatinine Ratio 0.19 mg/mg (0-0.20); Urea Random Urine 334 MG/DL
[2022-06-17 04:32] LABS: Sodium Urine Random 13 meq/L
[2022-06-17 04:36] LABS: Appearance Urine Turbid (Clear); Bacteria Urine None Seen /hpf; Bilirubin Urine 3+ (Negative); Blood Urine 3+ (Negative); Color Urine Dark Yellow (Yellow); Glucose Urine UA Negative (Negative); Ketones Urine Trace mg/dL (Negative); Leukocyte Esterase Ur 2+ LEU/UL (Negative); Need Manual Microscopic Reviewed; Nitrate Urine Positive (Negative); Protein Urine 2+ mg/dL (Negative); RBC Urine >100 /hpf (0-2); Specific Grav Ur 1.025 (1.001-1.035); Squamous Epithelial Cell Urine Few /hpf (Few); WBC Urine >100 /hpf; pH Urine 5.5 (5.0-9.0)
[2022-06-17 04:54] LABS: Add Urine Microscopic? YES
[2022-06-17 05:06] VITALS: BP 109/74; PULSE 84; RESP 20; TEMP 36.6; O2SAT 97
[2022-06-17 05:43] LABS: Eosinophil Urine None Seen % (None Seen)
[2022-06-17 05:45] LABS: Urine Eos QC 2nd Tech Confirmed
[2022-06-17] MEDS: DEXTROSE 5%/LACTATED RINGERS 1,000 ML 75 ML IV CONT (05:57)
[2022-06-17 07:44] LABS: Basophils Absolute Auto 0.1 K/mm3 (0.0-0.1); Basophils Percent Auto 0.4 % (0.2-1.2); Eosinophils Absolute Auto 1.2 K/mm3 (0-0.3); Eosinophils Percent Auto 6.9 % (0-4.4); Hematocrit 28.3 % (37.0-47.0); Hemoglobin 8.3 g/dL (12.0-15.0); Immature Granulocyte Absolute 0.85 K/mm3 (0.00-0.031); Immature Granulocyte Percent A 4.9 % (0-0.5); Lymphocytes Absolute Auto 2.39 K/mm3 (0.9-3.2); Lymphocytes Percent Auto 13.8 % (18.3-44.2); Mean Corpuscular HGB Conc 29.3 g/dl (32-36); Mean Corpuscular Hemoglobin 23.4 pg (26-34); Mean Corpuscular Volume 79.9 fl (80-100); Mean Platelet Volume 10.6 fl (7.4-10.4); Monocytes Absolute Auto 2.7 K/mm3 (0.1-0.6); Monocytes Percent Auto 15.4 % (2.6-8.5); Neutrophils Absolute Auto 10.2 K/mm3 (1.3-6.7); Neutrophils Percent Auto 58.6 % (45.5-73.1); Nucleated Red Blood Cells Perc 0.1 % (0.0-0.2); Platelet Count Result 172 k/mm3 (150-375); Red Blood Count 3.54 M/mm3 (4.2-5.4); Red Cell Distribution Width 26.3 % (11.5-14.5); White Blood Count 17.4 K/mm3 (4.5-10.0)
[2022-06-17 07:57] LABS: IFOB Positive Control Positive; Immunochemical Fecal Occult Bl Negative (N)
[2022-06-17 08:07] LABS: Anisocytosis 3+ (NORMAL); Hypochromasia 1+ (NORMAL); Platelet Estimate Adequate (Adequate)
[2022-06-17 08:09] LABS: Alanine Aminotransferase 20 U/L (6-35); Alkaline Phosphatase 66 U/L (38-126); Anion Gap 8 mmol/L (8-16); Aspartate Amino Transferase 81 U/L (14-36); Bilirubin,Total 4.6 mg/dL (0.2-1.3); Blood Urea Nitrogen 15 mg/dL (7-17); Calcium 6.6 mg/dL (8.4-10.2); Carbon Dioxide 16 mmol/L (22-30); Chloride 108 mmol/L (98-107); Creatine Kinase < 20 U/L (30-135); Estimated CRCL calculation 31 ml/min; Estimated Glomerular Filt Rate 28; Glucose 102 mg/dL (65-110); Potassium 3.7 mmol/L (3.4-5.0); Sodium 132 mmol/L (137-145)
[2022-06-17 08:10] LABS: Burr Cells 2+ (NORMAL); Schistocytes None Seen (NORMAL); Target Cells 2+ (NORMAL)
[2022-06-17 08:27] LABS: Glucose Point of Care 107 mg/dl (65-105)
[2022-06-17] MEDS: APIXABAN 5 MG TABLET PO ×2 (09:02→17:36)
[2022-06-17] MEDS: PANTOPRAZOLE SODIUM IV 40 MG VIAL IV PUSH ×2 (09:03→20:16)
[2022-06-17] MEDS: PREGABALIN (*CRX) 50 MG CAPSULE PO ×2 (09:03→17:36)
[2022-06-17] MEDS: FLUTICASONE PROPIONATE 0.05% NA SPR 16 GM BTL (*BKC) 1 SPRAY NASAL (09:03)
[2022-06-17] MEDS: FERROUS SULFATE 324 MG TABLET PO (09:03)
[2022-06-17] MEDS: EUCERIN CREAM 120 GM JAR 1 APPLIC TOPICAL (09:05)
[2022-06-17] MEDS: TOLNAFTATE 1% POWDER 45 GM BTL 1 APPLIC TOPICAL ×2 (09:05→17:36)
[2022-06-17] MEDS: SILVERGEL (ELTA) 45 ML 1 APPLIC TOPICAL (09:05)
[2022-06-17] MEDS: ACETAMINOPHEN 325 MG TABLET 650 MG PO (09:06)
--- NOTE | 2022-06-17 10:49 | PM.IMPN ---
Progress Note: A&P Assessment and Plan (1) Hepatic steatosis: Code(s): K76.0 - Fatty (change of) liver, not elsewhere classified Status: Chronic Assessment and Plan: LFTs coming down slowly Review of recent hospitalization with [facility] showed hepatic echogenicity concerning for hepatic steatosis on prior retroperitoneal ultrasound from 05/20/2022. abdominal ultrasound shows diffuse hepatic steatosis, absent gallbladder (the patient reported she did not think she had prior cholecystectomy when asked during assessment) and common bile duct is not dilated. GI consulted and appreciate recommendations. hepatitis panel negative. CT chest abdomen and pelvis does not show acute abdominal infection and redemonstrates demonstrates diffuse hepatic steatosis. EBV/CMV pending (2) BETHEL (acute kidney injury): Code(s): N17.9 - Acute kidney failure, unspecified Status: Acute Assessment and Plan: Likely prerenal from vomiting and poor oral intake. FENA suggest prerenal etiology. Patient has been receiving IV fluids but she appears to have generalized anasarca. Will hold IV fluids for now. Nephrology consulted (3) Leukocytosis: Qualifiers: Leukocytosis type: bandemia Qualified Code(s): D72.825 - Bandemia Code(s): D72.829 - Elevated white blood cell count, unspecified Status: Acute Assessment and Plan: Etiology unclear. Repeat UA shows UTI. patient has a h/o LLE wound with exposed hardware [facility] last month. Culture from our facility reviewed and showed Group B strep and staph aureus resistant to cipro, clindamycin and levaquin. No evidence of MRSA. Will discontinue vancomycin. Continue IV Rocephin for possible UTI (4) Dysphagia: Qualifiers: Dysphagia type: unspecified Qualified Code(s): R13.10 - Dysphagia, unspecified Code(s): R13.10 - Dysphagia, unspecified Status: Acute Assessment and Plan: c/o dysphagia on admission with previous history. Speech therapy consulted. patient was made NPO after bedside swallow. Modified barium swallow and patient had laryngeal penetration with thin liquids. Changed to pureed/nectar thick diet. Aspiration precautions (5) Abnormal finding on urinalysis: Code(s): R82.90 - Unspecified abnormal findings in urine Status: Ruled-out Assessment and Plan: UA concerning for UTI Urine culture without growth. Blood cultures negative to date. (6) Sjogrens syndrome: Qualifiers: Sjogren organ or system involvement: unspecified organ involvement Qualified Code(s): M35.00 - Sjogren syndrome, unspecified Code(s): M35.00 - Sjogren syndrome, unspecified Status: Chronic Assessment and Plan: Chronic. To be aware. Continue supportive care. (7) Generalized anxiety disorder: Code(s): F41.1 - Generalized anxiety disorder Status: Chronic Assessment and Plan: Continue home meds (8) Gastro-esophageal reflux disease without esophagitis: Code(s): K21.9 - Gastro-esophageal reflux disease without esophagitis Status: Chronic Assessment and Plan: on PPI therapy (9) Chronic hyponatremia: Code(s): E87.1 - Hypo-osmolality and hyponatremia Status: Chronic Assessment and Plan: Monitor sodium level. Appears sodium fluctuates 127 to 134 Subjective Date/time seen: 06/17/22 10:49 Interval history: No changes overnight. Patient is legally blind. Review of Systems Review of Systems: All systems reviewed & are unremarkable except as noted in HPI and below Exam Narrative: General: Morbidly obese older adult female lying in bed. Chronically ill-appearing Mental Status/Psych: Awake, alert and oriented to person, place and time. Skin: Jaundice. Generalized, pruritic lacy rash to face and arms. Warm, and dry. HEENT: Normocephalic. Atraumatic. Legally blind and patient does not open eye
[2022-06-17] MEDS: CHOLESTYRAMINE (W/ SUGAR) 4 GM POWD.PACK PO (11:18)
--- NOTE | 2022-06-17 12:03 | WPDGIPROGNO ---
Progress Note: A&P Assessment and Plan (1) Jaundice: Code(s): R17 - Unspecified jaundice Status: Acute Assessment and Plan: liver imaging reviewed and normal biliary system, she does not have gallbladder hepatitis panel negative wonder if drug induced (apparently she developed rash after an antibiotic during recent hospitalization- now with cholestatic pattern), also systemic disease, etc pending serology for EBV and CMV (mono negative), also rule out other chronic liver conditions bilirubin is coming down (2) Hepatic steatosis: Code(s): K76.0 - Fatty (change of) liver, not elsewhere classified Status: Chronic (3) Elevated LFTs: Code(s): R79.89 - Other specified abnormal findings of blood chemistry Status: Acute Assessment and Plan: monitor trending down today (4) Nausea and vomiting in adult: Code(s): R11.2 - Nausea with vomiting, unspecified Status: Acute Assessment and Plan: she is on special thickened diet with aspiration precaution (5) Anasarca: Code(s): R60.1 - Generalized edema Status: Acute Assessment and Plan: also renal failure nephrology on board (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, 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 Subjective Date/time seen: 06/17/22 12:03 Interval history: more sleepy today noted that bili is coming down Review of Systems Review of Systems: All systems reviewed & are unremarkable except as noted in HPI and below Exam Const: General: ill appearing chronically Other: laying in bed, obese, anasarca HENMT: Face/Nose/Sinus: Normal nares present Eyes: Other: blind and eyes are closed Neck: Neck: supple Resp: Auscultation: no wheezes and diminished lung sounds Cardio: Rate: regular rate GI: GI Palp: Yes Soft to palpation, No Tenderness to palpation present (GI) and No Guarding due to palpation present (GI) Skin: Other: jaundice Neuro: Other: more sleepy today Extrem: Other: diffuse edema in legs and arms, previous surgery in ankle Objective Data Vital Signs Vital Signs: Vital Signs - 24 hr 06/16/22 14:00 06/16/22 21:11 06/16/22 20:00 Temperature 98.8 F 98.5 F Pulse Rate 105 H 110 H Respiratory Rate 20 20 Blood Pressure 103/56 L 107/63 Pulse Oximetry 98 95 Oxygen Delivery Room Air 06/17/22 05:06 06/17/22 08:00 Temperature 97.9 F Pulse Rate 84 Respiratory Rate 20 Blood Pressure 109/74 Pulse Oximetry 97 Oxygen Delivery Room Air Intake/Output Intake/Output: Intake & Output 06/14/22 06/15/22 06/16/22 06/17/22 23:59 23:59 23:59 23:59 Intake Total 402 228 6199 1120 Output Total 100 100 Balance 164 957 1658 1020 Meds/Results Medications: Active Medications Generic Name Dose Route Start Last Admin Trade Name Freq PRN Reason Stop Dose Admin Acetaminophen 650 mg 06/15/22 10:24 06/17/22 09:06 Acetaminophen 325 Mg Tablet PO 650 mg Q8HR PRN Administration Mild Pain (1-3) or Fever Apixaban 5 mg 06/12/22 21:30 06/17/22 09:02 Apixaban 5 Mg Tablet PO 5 mg BID DAYSI Administration Cholestyramine Resin 4 gm 06/15/22 11:35 06/17/22 11:18 Cholestyramine (W/ Sugar) 4 Gm Powd.Pack PO 4 gm QAM@1100 DAYSI Administration Dextrose 12.5 gm 06/15/22 10:37 Dextrose 50% 25 Gm/50 Ml Syringe IV PUSH PRN PRN Hypoglycemia Protocol Ferrous Sulfate 324 mg 06/14/22 08:00 06/17/22 09:03 Ferrous Sulfate 324 Mg Tablet PO 324 mg DAILY@0800 DAYSI Administration Fluticasone Propionate 1 spray 06/13/22 09:00 06/17/22 09:03 Fluticasone Propionate 0.05% Na Spr 16 Gm Btl (*Bkc) NASAL 1 spray DAILY DAYSI Administration Glucagon 1 mg 06/15/22 10:37 Glucagon For Inj 1 Mg Vial IM PRN PRN Hypoglycemia Protocol Glucose 15 gm 06/15/22 10:37 Glucose Oral Gel 15 Gm Of Glucse In 37.5 Gm Tube PO PRN PRN
[2022-06-17 12:07] LABS: Glucose Point of Care 100 mg/dl (65-105)
--- NOTE | 2022-06-17 13:45 | P.PNNP_ITS ---
Progress Note: A&P Assessment and Plan (1) BETHEL (acute kidney injury): Code(s): N17.9 - Acute kidney failure, unspecified Status: Acute Assessment and Plan: * baseline creatinine ~ 0.6 - 1.0mg/dl about a month ago * however, a reading of 2.7mg/dl noted in early May 2022 (lab error?) * history would suggest volume depletion * however, no improvement with IVF hydration and already having issues with edema/swelling * liver dysfunction playing a role (?) -- decreased ECF leading to prerenal azotemia... * possible AIN from recent antibiotic exposure? * ATN/renal hypoperfusion from relative hypotension? * evaluation to date: * renal ultrasound okay * urine electrolytes prerenal [(due to volume depletion versus liver physiology) despite evidence of fluid overload] * UA suggestive of UTI * urine eosinophils negative * CPK low * follow trend of repeat labs and UOP (2) Anasarca: Code(s): R60.1 - Generalized edema Status: Acute Assessment and Plan: * as noted by exam * partly due to renal and liver dysfunction * however, her severe hypoalbuminemia likely more to blame * no evidence of nephrotic syndrome/proteinuria * consider IV albumin chased by IV diuretics * this may possibly help renal function as well (3) Hepatic steatosis: Code(s): K76.0 - Fatty (change of) liver, not elsewhere classified Status: Chronic Assessment and Plan: * testing/imaging noted * GI following with recommendations noted * continue to follow (4) Nausea & vomiting: Qualifiers: Vomiting type: unspecified Qualified Code(s): R11.2 - Nausea with vomiting, unspecified Code(s): R11.2 - Nausea with vomiting, unspecified Status: Acute Assessment and Plan: * on PPI and prn antiemetics * aspiration precautions * follow symptoms (5) Elevated LFTs: Code(s): R79.89 - Other specified abnormal findings of blood chemistry Status: Acute Assessment and Plan: * partly related to #2 (?) * GI following * follow trend Will continue to follow. Subjective Date/time seen: 06/17/22 13:45 Interval history: Follow-up for acute kidney injury/acute renal failure. No real significant change - renal function a bit better by AM labs; sleepy at the time of my visit; no acute distress noted; relative hypotension noted today. Exam Narrative: General: ill appearing female in NAD Heart: normal S1 and S2; no rub Lungs: coarse and decreased at bases with a few crackles noted Abdomen: soft, nontender, nondistended, positive bowel sounds Extremities: no cyanosis or clubbing; 2+ edema (anasarca) Skin: warm and dry Objective Data Vital Signs Vital Signs: Vital Signs Temp Pulse Resp BP Pulse Ox O2 Del Method 06/17/22 13:13 98.1 F 99 19 86/49 L 97 06/17/22 08:00 Room Air 06/17/22 05:06 97.9 F 84 20 109/74 97 06/16/22 20:00 Room Air 06/16/22 21:11 98.5 F 110 H 20 107/63 95 Intake/Output Intake/Output: Intake & Output 06/14/22 06/15/22 06/16/22 06/17/22 23:59 23:59 23:59 23:59 Intake Total 500 313 0825 1840 Output Total 100 100 Balance 056 247 5189 1740 Meds/Results Medications:
--- NOTE | 2022-06-17 13:45 | PM.PNNEP ---
Progress Note: A&P Assessment and Plan (1) BETHEL (acute kidney injury): Code(s): N17.9 - Acute kidney failure, unspecified Status: Acute Assessment and Plan: baseline creatinine ~ 0.6 - 1.0mg/dl about a month ago however, a reading of 2.7mg/dl noted in early May 2022 (lab error?) history would suggest volume depletion however, no improvement with IVF hydration and already having issues with edema/swelling liver dysfunction playing a role (?) -- decreased ECF leading to prerenal azotemia... possible AIN from recent antibiotic exposure? ATN/renal hypoperfusion from relative hypotension? evaluation to date: renal ultrasound okay urine electrolytes prerenal [(due to volume depletion versus liver physiology) despite evidence of fluid overload] UA suggestive of UTI urine eosinophils negative CPK low follow trend of repeat labs and UOP (2) Anasarca: Code(s): R60.1 - Generalized edema Status: Acute Assessment and Plan: as noted by exam partly due to renal and liver dysfunction however, her severe hypoalbuminemia likely more to blame no evidence of nephrotic syndrome/proteinuria consider IV albumin chased by IV diuretics this may possibly help renal function as well (3) Hepatic steatosis: Code(s): K76.0 - Fatty (change of) liver, not elsewhere classified Status: Chronic Assessment and Plan: testing/imaging noted GI following with recommendations noted continue to follow (4) Nausea & vomiting: Qualifiers: Vomiting type: unspecified Qualified Code(s): R11.2 - Nausea with vomiting, unspecified Code(s): R11.2 - Nausea with vomiting, unspecified Status: Acute Assessment and Plan: on PPI and prn antiemetics aspiration precautions follow symptoms (5) Elevated LFTs: Code(s): R79.89 - Other specified abnormal findings of blood chemistry Status: Acute Assessment and Plan: partly related to #2 (?) GI following follow trend Will continue to follow. Subjective Date/time seen: 06/17/22 13:45 Interval history: Follow-up for acute kidney injury/acute renal failure. No real significant change - renal function a bit better by AM labs; sleepy at the time of my visit; no acute distress noted; relative hypotension noted today. Exam Narrative: General: ill appearing female in NAD Heart: normal S1 and S2; no rub Lungs: coarse and decreased at bases with a few crackles noted Abdomen: soft, nontender, nondistended, positive bowel sounds Extremities: no cyanosis or clubbing; 2+ edema (anasarca) Skin: warm and dry Objective Data Vital Signs Vital Signs: Vital Signs Temp Pulse Resp BP Pulse Ox O2 Del Method 06/17/22 13:13 98.1 F 99 19 86/49 L 97 06/17/22 08:00 Room Air 06/17/22 05:06 97.9 F 84 20 109/74 97 06/16/22 20:00 Room Air 06/16/22 21:11 98.5 F 110 H 20 107/63 95 Intake/Output Intake/Output: Intake & Output 06/14/22 06/15/22 06/16/22 06/17/22 23:59 23:59 23:59 23:59 Intake Total 958 221 7726 1840 Output Total 100 100 Balance 457 958 0801 1740 Meds/Results Medications: Active Medications Generic Name Dose Route Start Last Admin Trade Name Freq PRN Reason Stop Dose Admin Acetaminophen 650 mg 06/15/22 10:24 06/17/22 09:06 Acetaminophen 325 Mg Tablet PO 650 mg Q8HR PRN Administration Mild Pain (1-3) or Fever Apixaban 5 mg 06/12/22 21:30 06/17/22 17:36 Apixaban 5 Mg Tablet PO 5 mg BID DAYSI Administration Cholestyramine Resin 4 gm 06/15/22 11:35 06/17/22 11:18 Cholestyramine (W/ Sugar) 4 Gm Powd.Pack PO 4 gm QAM@1100 DAYSI Administration Dextrose 12.5 gm 06/15/22 10:37 Dextrose 50% 25 Gm/50 Ml Syringe IV PUSH PRN PRN Hypoglycemia Protocol Ferrous Sulfate 324 mg 06/14/22 08:00 06/17/22 09:03 Ferrous Sulfate 324 Mg Tablet PO 324 mg
--- NOTE | 2022-06-17 14:00 | PCSTNOTE ---
The patient treatment was not able to be completed on 06/17 due to RN reporting that patient remains asleep. Will check again in the morning to see if she can participate in therapy session. Will plan to continue treatment per plan of care.
[2022-06-17 14:13] VITALS: BP 86/49; PULSE 99; RESP 19; TEMP 36.7; O2SAT 97
[2022-06-17 15:30] VITALS: BP 87/46
[2022-06-17] MEDS: SODIUM CHLORIDE 0.9% IV 500 ML 999 ML IV CONT (16:41)
[2022-06-17 17:02] LABS: Glucose Point of Care 116 mg/dl (65-105)
[2022-06-17 18:33] VITALS: BP 81/46
[2022-06-17] MEDS: SODIUM CHLORIDE 0.9% IV 1,000 ML 999 ML IV CONT (18:51)
[2022-06-17] MEDS: cefTRIAXone 2 GM/NS 100 ML 2 GM/100 ML BAG IVPB (20:16)
[2022-06-17] MEDS: MIRTAZAPINE 7.5 MG TABLET PO (20:16)
[2022-06-17 20:33] LABS: Glucose Point of Care 91 mg/dl (65-105)
[2022-06-17 20:57] VITALS: BP 103/69; PULSE 103; RESP 18; TEMP 36.8; O2SAT 100
[2022-06-18 05:09] VITALS: BP 112/44; PULSE 103; RESP 20; TEMP 36.8; O2SAT 96
[2022-06-18 07:12] LABS: Basophils Absolute Auto 0.1 K/mm3 (0.0-0.1); Basophils Percent Auto 0.4 % (0.2-1.2); Eosinophils Absolute Auto 1.1 K/mm3 (0-0.3); Eosinophils Percent Auto 6.5 % (0-4.4); Hematocrit 28.9 % (37.0-47.0); Hemoglobin 8.5 g/dL (12.0-15.0); Immature Granulocyte Absolute 0.61 K/mm3 (0.00-0.031); Immature Granulocyte Percent A 3.6 % (0-0.5); Lymphocytes Absolute Auto 2.46 K/mm3 (0.9-3.2); Lymphocytes Percent Auto 14.4 % (18.3-44.2); Mean Corpuscular HGB Conc 29.4 g/dl (32-36); Mean Corpuscular Hemoglobin 23.1 pg (26-34); Mean Corpuscular Volume 78.5 fl (80-100); Mean Platelet Volume 11.1 fl (7.4-10.4); Monocytes Absolute Auto 2.7 K/mm3 (0.1-0.6); Monocytes Percent Auto 15.6 % (2.6-8.5); Neutrophils Absolute Auto 10.2 K/mm3 (1.3-6.7); Neutrophils Percent Auto 59.5 % (45.5-73.1); Nucleated Red Blood Cells Absolute Auto 0.1 K/mm3 (0.0-0.012); Nucleated Red Blood Cells Perc 0.3 % (0.0-0.2); Platelet Count Result 156 k/mm3 (150-375); Red Blood Count 3.68 M/mm3 (4.2-5.4); Red Cell Distribution Width 26.9 % (11.5-14.5); White Blood Count 17.1 K/mm3 (4.5-10.0)
[2022-06-18 08:01] LABS: Anisocytosis 2+ (NORMAL); Hypochromasia 1+ (NORMAL); Platelet Estimate Adequate (Adequate); Target Cells 1+ (NORMAL)
[2022-06-18 08:02] LABS: Schistocytes Rare (NORMAL)
[2022-06-18 08:04] LABS: Glucose Point of Care 94 mg/dl (65-105)
[2022-06-18 08:53] LABS: Alanine Aminotransferase 25 U/L (6-35); Albumin Level 1.9 g/dL (3.5-5.1); Alkaline Phosphatase 150 U/L (38-126); Anion Gap 10 mmol/L (8-16); Aspartate Amino Transferase 135 U/L (14-36); Blood Urea Nitrogen 16 mg/dL (7-17); Calcium 7.2 mg/dL (8.4-10.2); Carbon Dioxide 17 mmol/L (22-30); Chloride 108 mmol/L (98-107); Estimated CRCL calculation 27 ml/min; Estimated Glomerular Filt Rate 23; Glucose 94 mg/dL (65-110); Potassium 3.5 mmol/L (3.4-5.0); Sodium 135 mmol/L (137-145)
[2022-06-18] MEDS: PANTOPRAZOLE SODIUM IV 40 MG VIAL IV PUSH ×2 (09:23→21:00)
[2022-06-18] MEDS: APIXABAN 5 MG TABLET PO ×2 (09:23→17:55)
[2022-06-18] MEDS: FERROUS SULFATE 324 MG TABLET PO (09:23)
[2022-06-18] MEDS: TOLNAFTATE 1% POWDER 45 GM BTL 1 APPLIC TOPICAL ×2 (09:24→17:55)
[2022-06-18] MEDS: FLUTICASONE PROPIONATE 0.05% NA SPR 16 GM BTL (*BKC) 1 SPRAY NASAL (09:24)
[2022-06-18] MEDS: SILVERGEL (ELTA) 45 ML 1 APPLIC TOPICAL (09:24)
[2022-06-18] MEDS: EUCERIN CREAM 120 GM JAR 1 APPLIC TOPICAL (09:24)
[2022-06-18] MEDS: PREGABALIN (*CRX) 50 MG CAPSULE PO ×2 (09:27→17:58)
[2022-06-18] MEDS: ALBUMIN HUMAN 25% 12.5 GM/50ML 50 ML IVPB ×3 (09:48→23:23)
[2022-06-18 10:38] LABS: Haptoglobin 123 mg/dL (43-212)
--- NOTE | 2022-06-18 10:56 | P.PNNP_ITS ---
Progress Note: A&P Assessment and Plan (1) BETHEL (acute kidney injury): Code(s): N17.9 - Acute kidney failure, unspecified Status: Acute Assessment and Plan: * baseline creatinine ~ 0.6 - 1.0mg/dl about a month ago * however, a reading of 2.7mg/dl noted in early May 2022 (lab error?) * history would suggest volume depletion * however, no improvement with IVF hydration and already having issues with edema/swelling * liver dysfunction playing a role (?) -- decreased ECF leading to prerenal azotemia... * possible AIN from recent antibiotic exposure? * ATN/renal hypoperfusion from relative hypotension? * evaluation to date: * renal ultrasound okay * urine electrolytes prerenal [(due to volume depletion versus liver physiology) despite evidence of fluid overload] * UA suggestive of UTI * urine eosinophils negative * CPK low * follow trend of repeat labs and UOP (2) Anasarca: Code(s): R60.1 - Generalized edema Status: Acute Assessment and Plan: * as noted by exam * partly due to renal and liver dysfunction * however, her severe hypoalbuminemia likely more to blame * no evidence of nephrotic syndrome/proteinuria * start IV albumin chased by IV diuretics * this may possibly help renal function as well (3) Hepatic steatosis: Code(s): K76.0 - Fatty (change of) liver, not elsewhere classified Status: Chronic Assessment and Plan: * testing/imaging noted * GI following with recommendations noted * continue to follow (4) Nausea & vomiting: Qualifiers: Vomiting type: unspecified Qualified Code(s): R11.2 - Nausea with vomiting, unspecified Code(s): R11.2 - Nausea with vomiting, unspecified Status: Acute Assessment and Plan: * on PPI and prn antiemetics * aspiration precautions * follow symptoms (5) Elevated LFTs: Code(s): R79.89 - Other specified abnormal findings of blood chemistry Status: Acute Assessment and Plan: * partly related to #2 (?) * GI following * follow trend Will continue to follow. Subjective Date/time seen: 06/18/22 10:56 Interval history: Follow-up for acute kidney injury/acute renal failure. Renal function continues to fluctuate as are liver function tests; issues with relative hypotension but improved with IVF bolus; otherwise, no significant change noted; no acute events overnight or earlier today. Exam Narrative: General: ill appearing female in NAD Heart: normal S1 and S2; no rub Lungs: coarse and decreased at bases with a few crackles noted Abdomen: soft, nontender, nondistended, positive bowel sounds Extremities: no cyanosis or clubbing; 2+ edema (anasarca) Skin: warm and intact Objective Data Vital Signs Vital Signs: Vital Signs - 24 hr 06/17/22 18:33 06/17/22 20:00 06/17/22 20:57 Temperature 98.2 F Pulse Rate 103 H Respiratory Rate 18 Blood Pressure 81/46 L 103/69 Pulse Oximetry 100 Oxygen Delivery Room Air 06/18/22 05:09 06/18/22 08:00 06/18/22 11:36 Temperature 98.3 F Pulse Rate 103 H Respiratory Rate 20 Blood Pressure 112/44 L 104/46 L Pulse Oximetry 96 Oxygen Delivery Room Air 06/18/22 14:16 Temperature 98.0 F Pulse
--- NOTE | 2022-06-18 10:56 | PM.PNNEP ---
Progress Note: A&P Assessment and Plan (1) BETHEL (acute kidney injury): Code(s): N17.9 - Acute kidney failure, unspecified Status: Acute Assessment and Plan: baseline creatinine ~ 0.6 - 1.0mg/dl about a month ago however, a reading of 2.7mg/dl noted in early May 2022 (lab error?) history would suggest volume depletion however, no improvement with IVF hydration and already having issues with edema/swelling liver dysfunction playing a role (?) -- decreased ECF leading to prerenal azotemia... possible AIN from recent antibiotic exposure? ATN/renal hypoperfusion from relative hypotension? evaluation to date: renal ultrasound okay urine electrolytes prerenal [(due to volume depletion versus liver physiology) despite evidence of fluid overload] UA suggestive of UTI urine eosinophils negative CPK low follow trend of repeat labs and UOP (2) Anasarca: Code(s): R60.1 - Generalized edema Status: Acute Assessment and Plan: as noted by exam partly due to renal and liver dysfunction however, her severe hypoalbuminemia likely more to blame no evidence of nephrotic syndrome/proteinuria start IV albumin chased by IV diuretics this may possibly help renal function as well (3) Hepatic steatosis: Code(s): K76.0 - Fatty (change of) liver, not elsewhere classified Status: Chronic Assessment and Plan: testing/imaging noted GI following with recommendations noted continue to follow (4) Nausea & vomiting: Qualifiers: Vomiting type: unspecified Qualified Code(s): R11.2 - Nausea with vomiting, unspecified Code(s): R11.2 - Nausea with vomiting, unspecified Status: Acute Assessment and Plan: on PPI and prn antiemetics aspiration precautions follow symptoms (5) Elevated LFTs: Code(s): R79.89 - Other specified abnormal findings of blood chemistry Status: Acute Assessment and Plan: partly related to #2 (?) GI following follow trend Will continue to follow. Subjective Date/time seen: 06/18/22 10:56 Interval history: Follow-up for acute kidney injury/acute renal failure. Renal function continues to fluctuate as are liver function tests; issues with relative hypotension but improved with IVF bolus; otherwise, no significant change noted; no acute events overnight or earlier today. Exam Narrative: General: ill appearing female in NAD Heart: normal S1 and S2; no rub Lungs: coarse and decreased at bases with a few crackles noted Abdomen: soft, nontender, nondistended, positive bowel sounds Extremities: no cyanosis or clubbing; 2+ edema (anasarca) Skin: warm and intact Objective Data Vital Signs Vital Signs: Vital Signs - 24 hr 06/17/22 18:33 06/17/22 20:00 06/17/22 20:57 Temperature 98.2 F Pulse Rate 103 H Respiratory Rate 18 Blood Pressure 81/46 L 103/69 Pulse Oximetry 100 Oxygen Delivery Room Air 06/18/22 05:09 06/18/22 08:00 06/18/22 11:36 Temperature 98.3 F Pulse Rate 103 H Respiratory Rate 20 Blood Pressure 112/44 L 104/46 L Pulse Oximetry 96 Oxygen Delivery Room Air 06/18/22 14:16 Temperature 98.0 F Pulse Rate 96 Respiratory Rate 22 H Blood Pressure 120/57 L Pulse Oximetry 95 Oxygen Delivery Intake/Output Intake/Output: Intake & Output 06/15/22 06/16/22 06/17/22 06/18/22 23:59 23:59 23:59 23:59 Intake Total 620 2460 2680 90 Output Total 100 100 150 Balance 620 2360 2580 -60 Meds/Results Medications: Active Medications Generic Name Dose Route Start Last Admin Trade Name Freq PRN Reason Stop Dose Admin Acetaminophen 650 mg 06/15/22 10:24 06/17/22 09:06 Acetaminophen 325 Mg Tablet PO 650 mg Q8HR PRN Administration Mild Pain (1-3) or Fever Apixaban 5 mg 06/12/22 21:30 06/18/22 09:23 Apixaban 5 Mg Tablet PO 5 mg BID DAYSI Administration Cholestyramine Resin 4 gm 0
[2022-06-18] MEDS: CHOLESTYRAMINE (W/ SUGAR) 4 GM POWD.PACK PO (10:59)
[2022-06-18 11:36] VITALS: BP 104/46
[2022-06-18] MEDS: FUROSEMIDE INJ 40 MG/4 ML VIAL 20 MG IV PUSH ×2 (11:36→18:43)
--- NOTE | 2022-06-18 11:52 | PM.IMPN ---
Progress Note: A&P Assessment and Plan (1) Hepatic steatosis: Code(s): K76.0 - Fatty (change of) liver, not elsewhere classified Status: Chronic Assessment and Plan: LFTs rising again- etiology unclear Review of recent hospitalization with [facility] showed hepatic echogenicity concerning for hepatic steatosis on prior retroperitoneal ultrasound from 05/20/2022. abdominal ultrasound shows diffuse hepatic steatosis, absent gallbladder (the patient reported she did not think she had prior cholecystectomy when asked during assessment) and common bile duct is not dilated. GI consulted and appreciate recommendations. hepatitis panel negative. CT chest abdomen and pelvis does not show acute abdominal infection and redemonstrates demonstrates diffuse hepatic steatosis. EBV/CMV pending (2) BETHEL (acute kidney injury): Code(s): N17.9 - Acute kidney failure, unspecified Status: Acute Assessment and Plan: Likely prerenal from vomiting and poor oral intake. FENA suggest prerenal etiology. Patient has been receiving IV fluids but she appears to have generalized anasarca. hold IV fluids for now. Nephrology consulted (3) Leukocytosis: Qualifiers: Leukocytosis type: bandemia Qualified Code(s): D72.825 - Bandemia Code(s): D72.829 - Elevated white blood cell count, unspecified Status: Acute Assessment and Plan: Etiology unclear. Repeat UA shows UTI. patient has a h/o LLE wound with exposed hardware treated at [facility] last month. Culture from our facility reviewed and showed Group B strep and staph aureus resistant to cipro, clindamycin and levaquin. No evidence of MRSA. Will discontinue vancomycin. Continue IV Rocephin for possible UTI (4) Dysphagia: Qualifiers: Dysphagia type: unspecified Qualified Code(s): R13.10 - Dysphagia, unspecified Code(s): R13.10 - Dysphagia, unspecified Status: Acute Assessment and Plan: c/o dysphagia on admission with previous history. Speech therapy consulted. patient was made NPO after bedside swallow. Modified barium swallow and patient had laryngeal penetration with thin liquids. Changed to pureed/nectar thick diet. Aspiration precautions (5) Abnormal finding on urinalysis: Code(s): R82.90 - Unspecified abnormal findings in urine Status: Ruled-out Assessment and Plan: UA concerning for UTI Urine culture without growth. Blood cultures negative to date. continue IV Rocephin (6) Sjogrens syndrome: Qualifiers: Sjogren organ or system involvement: unspecified organ involvement Qualified Code(s): M35.00 - Sjogren syndrome, unspecified Code(s): M35.00 - Sjogren syndrome, unspecified Status: Chronic Assessment and Plan: Chronic. To be aware. Continue supportive care. (7) Generalized anxiety disorder: Code(s): F41.1 - Generalized anxiety disorder Status: Chronic Assessment and Plan: Continue home meds (8) Gastro-esophageal reflux disease without esophagitis: Code(s): K21.9 - Gastro-esophageal reflux disease without esophagitis Status: Chronic Assessment and Plan: on PPI therapy (9) Chronic hyponatremia: Code(s): E87.1 - Hypo-osmolality and hyponatremia Status: Chronic Assessment and Plan: Monitor sodium level. Appears sodium fluctuates 127 to 134 Subjective Date/time seen: 06/18/22 11:52 Review of Systems Review of Systems: All systems reviewed & are unremarkable except as noted in HPI and below Exam Narrative: General: Morbidly obese older adult female lying in bed. Chronically ill-appearing Mental Status/Psych: Awake, alert and oriented to person, place and time. Skin: Jaundice. Generalized, pruritic lacy rash to face and arms. Warm, and dry. HEENT: Normocephalic. Atraumatic. 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
[2022-06-18 12:05] LABS: Glucose Point of Care 94 mg/dl (65-105)
--- NOTE | 2022-06-18 12:43 | PCSTNOTE ---
Unable to complete speech therapy treatment today due to patient not alert, falling asleep and unable to stay awake. Will continue with POC.
--- NOTE | 2022-06-18 13:38 | PCNFU ---
Nutrition Follow-Up Complete: Increased protein energy needs related to inadequate oral intake, increased needs from wounds as evidenced by 0-5% intakes, wound reports. Goal: Improve PO intake to at least 50% meals and supplements for wound healing support - Not meeting goal Tolerate appropriate diet texture and liquid consistency - Not meeting goal Pt current nutrition is Puree diet with mildly thickened liquids. Intakes 0-5%. Zana BID and Ensure Enlive TID are ordered. Intakes 0% Nutrition recommendation: Continue to encourage intakes. Pt is refusing intakes. Tube feeding probably not a good option due to condition. Last recorded weight is 114.6 kg. Bowel Motility:last BM 06/17/22 Labs Reviewed: Hgb 8.5, Hct 28.9, Alb 1.9, Na 135, Cre 2.1 Meds Noted: Eliquid, mirtazipine, Zofran, protonix, vancomycin Skin: Edema, anasarca, Stage IV pressure to L lateral ankle Additional Notes: Pt is refusing intakes. 2-3 bites at the most. Tube feeding is one option but may not be recommended because of condition. Otherwise recommend checking with family re: code status as she is not meeting energy requirements at this time. Monitoring intakes, swallowing ability, wound healing, labs, weights Follow up in 5 days
[2022-06-18 14:16] VITALS: BP 120/57; PULSE 96; RESP 22; TEMP 36.7; O2SAT 95
--- NOTE | 2022-06-18 14:29 | WPDGIPROGNO ---
Progress Note: A&P Assessment and Plan (1) Jaundice: Code(s): R17 - Unspecified jaundice Status: Acute Assessment and Plan: liver imaging reviewed and normal biliary system, she does not have gallbladder hepatitis panel negative wonder if drug induced (apparently she developed rash after an antibiotic during recent hospitalization- now with cholestatic pattern), also systemic disease, etc serology for EBV and CMV still pending (mono, hiv negative, son denies history of alcohol use), pending work up other chronic liver conditions persistent jaundice (2) Hepatic steatosis: Code(s): K76.0 - Fatty (change of) liver, not elsewhere classified Status: Chronic (3) Elevated LFTs: Code(s): R79.89 - Other specified abnormal findings of blood chemistry Status: Acute Assessment and Plan: monitor (4) Nausea and vomiting in adult: Code(s): R11.2 - Nausea with vomiting, unspecified Status: Acute Assessment and Plan: she is on special thickened diet with aspiration precaution sleepy (5) Anasarca: Code(s): R60.1 - Generalized edema Status: Acute Assessment and Plan: also renal failure nephrology on board (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, 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 Subjective Date/time seen: 06/18/22 14:29 Interval history: no changes Review of Systems Review of Systems: All systems reviewed & are unremarkable except as noted in HPI and below Exam Const: General: ill appearing chronically Other: laying in bed, obese, anasarca HENMT: Face/Nose/Sinus: Normal nares present Eyes: Other: blind and eyes are closed Neck: Neck: supple Resp: Auscultation: no wheezes and diminished lung sounds Cardio: Rate: regular rate GI: GI Palp: Yes Soft to palpation, No Tenderness to palpation present (GI) and No Guarding due to palpation present (GI) Skin: Other: jaundice Neuro: Other: sleepy, arousable Extrem: Other: diffuse edema in legs and arms, previous surgery in ankle Objective Data Vital Signs Vital Signs: Vital Signs - 24 hr 06/17/22 15:30 06/17/22 18:33 06/17/22 20:00 Temperature Pulse Rate Respiratory Rate Blood Pressure 87/46 L 81/46 L Pulse Oximetry Oxygen Delivery Room Air 06/17/22 20:57 06/18/22 05:09 06/18/22 08:00 Temperature 98.2 F 98.3 F Pulse Rate 103 H 103 H Respiratory Rate 18 20 Blood Pressure 103/69 112/44 L Pulse Oximetry 100 96 Oxygen Delivery Room Air 06/18/22 11:36 06/18/22 14:16 Temperature 98.0 F Pulse Rate 96 Respiratory Rate 22 H Blood Pressure 104/46 L 120/57 L Pulse Oximetry 95 Oxygen Delivery Intake/Output Intake/Output: Intake & Output 06/15/22 06/16/22 06/17/22 06/18/22 23:59 23:59 23:59 23:59 Intake Total 620 2460 2180 90 Output Total 100 100 150 Balance 620 2360 2080 -60 Meds/Results Medications: Active Medications Generic Name Dose Route Start Last Admin Trade Name Freq PRN Reason Stop Dose Admin Acetaminophen 650 mg 06/15/22 10:24 06/17/22 09:06 Acetaminophen 325 Mg Tablet PO 650 mg Q8HR PRN Administration Mild Pain (1-3) or Fever Apixaban 5 mg 06/12/22 21:30 06/18/22 09:23 Apixaban 5 Mg Tablet PO 5 mg BID DAYSI Administration Cholestyramine Resin 4 gm 06/15/22 11:35 06/18/22 10:59 Cholestyramine (W/ Sugar) 4 Gm Powd.Pack PO 4 gm QAM@1100 DAYSI Administration Dextrose 12.5 gm 06/15/22 10:37 Dextrose 50% 25 Gm/50 Ml Syringe IV PUSH PRN PRN Hypoglycemia Protocol Ferrous Sulfate 324 mg 06/14/22 08:00 06/18/22 09:23 Ferrous Sulfate 324 Mg Tablet PO 324 mg DAILY@0800 DAYSI Administration Fluticasone Propionate 1 spray 06/13/22 09:00 06/18/22 09:24 Fluticasone Propionate 0.05% Na Spr 16 Gm Btl (*Bkc) NASAL 1 spray DAILY DAYSI Administration Furosemide 20 mg 06/18/22 09:30
[2022-06-18 17:54] LABS: Glucose Point of Care 97 mg/dl (65-105)
[2022-06-18] MEDS: ONDANSETRON INJ 4 MG/2 ML VIAL IV PUSH (18:49)
[2022-06-18 20:23] VITALS: BP 124/69; PULSE 93; RESP 18; TEMP 36.6; O2SAT 99
[2022-06-18] MEDS: cefTRIAXone 2 GM/NS 100 ML 2 GM/100 ML BAG IVPB (20:55)
[2022-06-18 21:11] LABS: Glucose Point of Care 102 mg/dl (65-105)
[2022-06-19] MEDS: FUROSEMIDE INJ 40 MG/4 ML VIAL 20 MG IV PUSH ×3 (00:55→18:15)
[2022-06-19 05:51] VITALS: BP 119/54; PULSE 101; RESP 16; TEMP 36.8; O2SAT 94
[2022-06-19 06:52] LABS: Alanine Aminotransferase 22 U/L (6-35); Albumin Level 2.4 g/dL (3.5-5.1); Alkaline Phosphatase 150 U/L (38-126); Anion Gap 10 mmol/L (8-16); Aspartate Amino Transferase 141 U/L (14-36); Bilirubin,Total 9.6 mg/dL (0.2-1.3); Blood Urea Nitrogen 18 mg/dL (7-17); Calcium 7.4 mg/dL (8.4-10.2); Carbon Dioxide 17 mmol/L (22-30); Chloride 108 mmol/L (98-107); Estimated CRCL calculation 26 ml/min; Estimated Glomerular Filt Rate 22; Glucose 81 mg/dL (65-110); Phosphorus 2.8 mg/dL (2.5-4.5); Sodium 135 mmol/L (137-145)
--- NOTE | 2022-06-19 08:09 | WPDGIPROGNO ---
Progress Note: A&P Assessment and Plan (1) Jaundice: Code(s): R17 - Unspecified jaundice Status: Acute Assessment and Plan: liver imaging reviewed and normal biliary system, she does not have gallbladder hepatitis panel negative wonder if drug induced (apparently she developed rash after an antibiotic during recent hospitalization- now with cholestatic pattern), also systemic disease, etc serology for EBV and CMV still pending (mono, hiv negative, son denies history of alcohol use), pending work up other chronic liver conditions persistent jaundice - bilirubin today is 9.6 up slightly from yesterday. (2) Hepatic steatosis: Code(s): K76.0 - Fatty (change of) liver, not elsewhere classified Status: Chronic Assessment and Plan: - Fatty liver is the working diagnosis for her liver impairment, however other studies and serologies are pending (3) Elevated LFTs: Code(s): R79.89 - Other specified abnormal findings of blood chemistry Status: Acute Assessment and Plan: awaiting results of serologies such as anti mitochondrial antibodies (4) Nausea and vomiting in adult: Code(s): R11.2 - Nausea with vomiting, unspecified Status: Acute Assessment and Plan: she is on special thickened diet with aspiration precaution denies nausea today (5) Anasarca: Code(s): R60.1 - Generalized edema Status: Acute Assessment and Plan: also renal failure nephrology on board (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 She denies complaints. Her vital signs are stable Exam Const: General: ill appearing chronically Nutritional Appearance: obese Other: laying in bed, obese, anasarca HENMT: Face/Nose/Sinus: Normal nares present Eyes: Other: blind and eyes are closed Neck: Neck: supple Resp: Auscultation: no wheezes and diminished lung sounds Cardio: Rate: regular rate GI: Inspection: normal to inspection and obesity GI Palp: No abdominal tenderness, Yes No hepatosplenomegaly present, No Palpable mass present and No Ascites present Auscultation: normal bowel sounds Skin: General skin exam: jaundice Other: jaundice Neuro: Other: sleepy, arousable Extrem: Other: diffuse edema in legs and arms, previous surgery in ankle Psych: Affect: Anxious affect present Objective Data Vital Signs Vital Signs: Vital Signs - 24 hr 06/18/22 11:36 06/18/22 14:16 06/18/22 20:23 Temperature 36.7 C 36.6 C Pulse Rate 96 93 Respiratory Rate 22 H 18 Blood Pressure 104/46 L 120/57 L 124/69 Pulse Oximetry 95 99 Oxygen Delivery 06/18/22 20:00 06/19/22 05:51 Temperature 36.8 C Pulse Rate 101 H Respiratory Rate 16 Blood Pressure 119/54 L Pulse Oximetry 94 Oxygen Delivery Room Air Intake/Output Intake/Output: Intake & Output 06/16/22 06/17/22 06/18/22 06/19/22 23:59 23:59 23:59 23:59 Intake Total 2460 2680 360 50 Output Total 100 100 550 300 Balance 2360 2580 -190 -250 Meds/Results Medications: Active Medications Generic Name Dose Route Start Last Admin Trade Name Freq PRN Reason Stop Dose Admin Acetaminophen 650 mg 06/15/22 10:24 06/17/22 09:06 Acetaminophen 325 Mg Tablet PO 650 mg Q8HR PRN Administration Mild Pain (1-3) or Fever Apixaban 5 mg 06/12/22 21:30 06/18/22 17:55 Apixaban 5 Mg Tablet PO 5 mg BID DAYSI Administration Cholestyramine Resin 4 gm 06/15/22 11:35 06/18/22 10:59 Cholestyramine (W/ Sugar) 4 Gm Powd.Pack PO 4 gm QAM@1100 DAYSI Administration Dextrose 12.5 gm 06/15/22 10:37 Dextrose 50% 25 Gm/50 Ml Syringe IV PUSH PRN PRN Hypoglycemia Protocol Ferrous Sulfate 324 mg 06/14/22 08:00 06/18/22 09:23 Ferrous Sulfate 324 Mg Tablet PO 324 mg DAILY@0800 DAYSI Administration
[2022-06-19] MEDS: PANTOPRAZOLE SODIUM IV 40 MG VIAL IV PUSH ×2 (08:37→20:33)
[2022-06-19] MEDS: FLUTICASONE PROPIONATE 0.05% NA SPR 16 GM BTL (*BKC) 1 SPRAY NASAL (08:38)
[2022-06-19] MEDS: FERROUS SULFATE 324 MG TABLET PO (08:38)
[2022-06-19] MEDS: TOLNAFTATE 1% POWDER 45 GM BTL 1 APPLIC TOPICAL ×2 (08:38→18:16)
[2022-06-19] MEDS: APIXABAN 5 MG TABLET PO ×2 (08:38→18:15)
[2022-06-19 08:39] LABS: Glucose Point of Care 75 mg/dl (65-105)
[2022-06-19] MEDS: EUCERIN CREAM 120 GM JAR 1 APPLIC TOPICAL (08:39)
[2022-06-19] MEDS: PREGABALIN (*CRX) 50 MG CAPSULE PO ×2 (08:42→18:15)
[2022-06-19] MEDS: polyethylene glycoL 3350 17 GM POWD.PACK PO (08:42)
[2022-06-19] MEDS: ALBUMIN HUMAN 25% 12.5 GM/50ML 50 ML IVPB ×3 (08:42→23:34)
[2022-06-19] MEDS: SILVERGEL (ELTA) 45 ML 1 APPLIC TOPICAL (09:58)
[2022-06-19 10:10] VITALS: BP 107/64
--- NOTE | 2022-06-19 10:22 | PM.IMPN ---
Progress Note: A&P Assessment and Plan (1) Hepatic steatosis: Code(s): K76.0 - Fatty (change of) liver, not elsewhere classified Status: Chronic Assessment and Plan: LFTs getting worse - etiology unclear Review of recent hospitalization with [facility] showed hepatic echogenicity concerning for hepatic steatosis on prior retroperitoneal ultrasound from 05/20/2022. abdominal ultrasound shows diffuse hepatic steatosis, absent gallbladder (the patient reported she did not think she had prior cholecystectomy when asked during assessment) and common bile duct is not dilated. GI consulted and appreciate recommendations. hepatitis panel negative. CT chest abdomen and pelvis does not show acute abdominal infection and redemonstrates demonstrates diffuse hepatic steatosis. EBV/CMV pending (2) BETHEL (acute kidney injury): Code(s): N17.9 - Acute kidney failure, unspecified Status: Acute Assessment and Plan: Likely prerenal from vomiting and poor oral intake. FENA suggest prerenal etiology. Patient has been receiving IV fluids but she appears to have generalized anasarca. hold IV fluids for now. try albumin with Lasix to reduce fluid overload Nephrology consulted. appreciate recommendations (3) Leukocytosis: Qualifiers: Leukocytosis type: bandemia Qualified Code(s): D72.825 - Bandemia Code(s): D72.829 - Elevated white blood cell count, unspecified Status: Acute Assessment and Plan: Etiology unclear. Repeat UA shows UTI. patient has a h/o LLE wound with exposed hardware treated at [facility] last month. Culture from our facility reviewed and showed Group B strep and staph aureus resistant to cipro, clindamycin and levaquin. No evidence of MRSA. Will discontinue vancomycin. Continue IV Rocephin for possible UTI (4) Dysphagia: Qualifiers: Dysphagia type: unspecified Qualified Code(s): R13.10 - Dysphagia, unspecified Code(s): R13.10 - Dysphagia, unspecified Status: Acute Assessment and Plan: c/o dysphagia on admission with previous history. Speech therapy consulted. patient was made NPO after bedside swallow. Modified barium swallow and patient had laryngeal penetration with thin liquids. Changed to pureed/nectar thick diet. Aspiration precautions (5) Abnormal finding on urinalysis: Code(s): R82.90 - Unspecified abnormal findings in urine Status: Ruled-out Assessment and Plan: UA concerning for UTI Urine culture without growth. Blood cultures negative to date. continue IV Rocephin (6) Sjogrens syndrome: Qualifiers: Sjogren organ or system involvement: unspecified organ involvement Qualified Code(s): M35.00 - Sjogren syndrome, unspecified Code(s): M35.00 - Sjogren syndrome, unspecified Status: Chronic Assessment and Plan: Chronic. To be aware. Continue supportive care. (7) Generalized anxiety disorder: Code(s): F41.1 - Generalized anxiety disorder Status: Chronic Assessment and Plan: Continue home meds (8) Gastro-esophageal reflux disease without esophagitis: Code(s): K21.9 - Gastro-esophageal reflux disease without esophagitis Status: Chronic Assessment and Plan: on PPI therapy (9) Chronic hyponatremia: Code(s): E87.1 - Hypo-osmolality and hyponatremia Status: Chronic Assessment and Plan: Monitor sodium level. Appears sodium fluctuates 127 to 134 Plan need goals of care discussion with family Subjective Date/time seen: 06/19/22 10:22 Interval history: not much change since yesterday. Patient does not respond much to verbal commands Review of Systems Review of Systems: ROS unobtainable: Yes unobtainable due to medical condition and unobtainable due to mental status Exam Narrative: General: Morbidly obese older adult female lying in bed. Chronically ill-appearing Mental Statu
[2022-06-19] MEDS: CHOLESTYRAMINE (W/ SUGAR) 4 GM POWD.PACK PO (10:58)
[2022-06-19 11:49] LABS: Glucose Point of Care 86 mg/dl (65-105)
--- NOTE | 2022-06-19 14:19 | P.PNNP_ITS ---
Progress Note: A&P Assessment and Plan (1) BETHEL (acute kidney injury): Code(s): N17.9 - Acute kidney failure, unspecified Status: Acute Assessment and Plan: * acute kidney injury * baseline creatinine ~ 0.6 - 1.0mg/dl about a month ago * however, a reading of 2.7mg/dl noted in early May 2022 (lab error?) * she has substantial swelling as well. * evaluation to date: * renal ultrasound okay * urine electrolytes prerenal [(due to volume depletion versus liver physiology) despite evidence of fluid overload] * UA suggestive of UTI * urine eosinophils negative * CPK low * probable pre renal azotemia. * Echo is okay. * Albumin was only 1.0 at 1 point so getting IV albumin. * Liver issues are possible as well. * She is getting diuretics but not much of a response and her creatinine is stable * I agree with Dr. Dyson that an element of ATN may be playing a role. * follow trend of repeat labs and UOP (2) Anasarca: Code(s): R60.1 - Generalized edema Status: Acute Assessment and Plan: * as noted by exam * renal and liver dysfunction as well as severe hypoalbuminemia likely more to blame * no evidence of nephrotic syndrome/proteinuria * heart function is okay * started IV albumin chased by IV diuretics * this may possibly help renal function as well (3) Hepatic steatosis: Code(s): K76.0 - Fatty (change of) liver, not elsewhere classified Status: Chronic Assessment and Plan: * testing/imaging noted * GI following with recommendations noted * continue to follow (4) Nausea & vomiting: Qualifiers: Vomiting type: unspecified Qualified Code(s): R11.2 - Nausea with vomiting, unspecified Code(s): R11.2 - Nausea with vomiting, unspecified Status: Acute Assessment and Plan: * on PPI and prn antiemetics * aspiration precautions * follow symptoms (5) Elevated LFTs: Code(s): R79.89 - Other specified abnormal findings of blood chemistry Status: Acute Assessment and Plan: * partly related to #2 (?) * GI following * follow trend Will continue to follow. Subjective Date/time seen: 06/19/22 14:19 Interval history: Not much verbal interaction. She finds discomfort when I push on her legs and hips to check for swelling. Exam Narrative: General: ill appearing female in NAD Heart: normal S1 and S2; no rub or subcu nodules Lungs: coarse and decreased at bases with a few crackles noted Abdomen: soft, nontender, nondistended, positive bowel sounds Extremities: no cyanosis or clubbing; 2+ edema (anasarca) Skin: No rash Objective Data Vital Signs Vital Signs: Vital Signs - 24 hr 06/18/22 20:23 06/18/22 20:00 06/19/22 05:51 Temperature 98 F 98.3 F Pulse Rate 93 101 H Respiratory Rate 18 16 Blood Pressure 124/69 119/54 L Pulse Oximetry 99 94 Oxygen Delivery Room Air 06/19/22 10:10 Temperature Pulse Rate Respiratory Rate Blood Pressure 107/64 Pulse Oximetry Oxygen Delivery Intake/Output Intake/Output: Intake & Output 06/16/22 06/17/22 06/18/22 06/19/22 23:59 23:59 23:59 23:59 Intake Total 2460 2680 360 130
--- NOTE | 2022-06-19 14:19 | PM.PNNEP ---
Progress Note: A&P Assessment and Plan (1) BETHEL (acute kidney injury): Code(s): N17.9 - Acute kidney failure, unspecified Status: Acute Assessment and Plan: acute kidney injury baseline creatinine ~ 0.6 - 1.0mg/dl about a month ago however, a reading of 2.7mg/dl noted in early May 2022 (lab error?) she has substantial swelling as well. evaluation to date: renal ultrasound okay urine electrolytes prerenal [(due to volume depletion versus liver physiology) despite evidence of fluid overload] UA suggestive of UTI urine eosinophils negative CPK low probable pre renal azotemia. Echo is okay. Albumin was only 1.0 at 1 point so getting IV albumin. Liver issues are possible as well. She is getting diuretics but not much of a response and her creatinine is stable I agree with Dr. Dyson that an element of ATN may be playing a role. follow trend of repeat labs and UOP (2) Anasarca: Code(s): R60.1 - Generalized edema Status: Acute Assessment and Plan: as noted by exam renal and liver dysfunction as well as severe hypoalbuminemia likely more to blame no evidence of nephrotic syndrome/proteinuria heart function is okay started IV albumin chased by IV diuretics this may possibly help renal function as well (3) Hepatic steatosis: Code(s): K76.0 - Fatty (change of) liver, not elsewhere classified Status: Chronic Assessment and Plan: testing/imaging noted GI following with recommendations noted continue to follow (4) Nausea & vomiting: Qualifiers: Vomiting type: unspecified Qualified Code(s): R11.2 - Nausea with vomiting, unspecified Code(s): R11.2 - Nausea with vomiting, unspecified Status: Acute Assessment and Plan: on PPI and prn antiemetics aspiration precautions follow symptoms (5) Elevated LFTs: Code(s): R79.89 - Other specified abnormal findings of blood chemistry Status: Acute Assessment and Plan: partly related to #2 (?) GI following follow trend Will continue to follow. Subjective Date/time seen: 06/19/22 14:19 Interval history: Not much verbal interaction. She finds discomfort when I push on her legs and hips to check for swelling. Exam Narrative: General: ill appearing female in NAD Heart: normal S1 and S2; no rub or subcu nodules Lungs: coarse and decreased at bases with a few crackles noted Abdomen: soft, nontender, nondistended, positive bowel sounds Extremities: no cyanosis or clubbing; 2+ edema (anasarca) Skin: No rash Objective Data Vital Signs Vital Signs: Vital Signs - 24 hr 06/18/22 20:23 06/18/22 20:00 06/19/22 05:51 Temperature 98 F 98.3 F Pulse Rate 93 101 H Respiratory Rate 18 16 Blood Pressure 124/69 119/54 L Pulse Oximetry 99 94 Oxygen Delivery Room Air 06/19/22 10:10 Temperature Pulse Rate Respiratory Rate Blood Pressure 107/64 Pulse Oximetry Oxygen Delivery Intake/Output Intake/Output: Intake & Output 06/16/22 06/17/22 06/18/22 06/19/22 23:59 23:59 23:59 23:59 Intake Total 2460 2680 360 130 Output Total 100 100 550 300 Balance 2360 2580 -190 -170 Meds/Results Medications: Active Medications Generic Name Dose Route Start Last Admin Trade Name Freq PRN Reason Stop Dose Admin Acetaminophen 650 mg 06/15/22 10:24 06/17/22 09:06 Acetaminophen 325 Mg Tablet PO 650 mg Q8HR PRN Administration Mild Pain (1-3) or Fever Apixaban 5 mg 06/12/22 21:30 06/19/22 08:38 Apixaban 5 Mg Tablet PO 5 mg BID DAYSI Administration Cholestyramine Resin 4 gm 06/15/22 11:35 06/19/22 10:58 Cholestyramine (W/ Sugar) 4 Gm Powd.Pack PO 4 gm QAM@1100 DAYSI Administration Dextrose 12.5 gm 06/15/22 10:37 Dextrose 50% 25 Gm/50 Ml Syringe IV PUSH PRN PRN Hypoglycemia Protocol Ferrous Sulfate 324 mg 06/14/22 08:00 05
[2022-06-19 14:46] VITALS: BP 110/64; PULSE 99; RESP 20; TEMP 36.1; O2SAT 95
[2022-06-19 14:51] LABS: Appearance Urine Turbid (Clear); Bacteria Urine None Seen /hpf; Bilirubin Urine 2+ (Negative); Blood Urine 3+ (Negative); Color Urine Dark Yellow (Yellow); Glucose Urine UA Negative (Negative); Ketones Urine Negative (Negative); Leukocyte Esterase Ur 1+ LEU/UL (Negative); Need Manual Microscopic Reviewed; Nitrate Urine Negative (Negative); Protein Urine 2+ mg/dL (Negative); RBC Urine >100 /hpf (0-2); Specific Grav Ur 1.011 (1.001-1.035); Squamous Epithelial Cell Urine Few /hpf (Few); Urobilinogen Urine 0.2 mg/dL (<2.0); WBC Urine 21-50 /hpf
[2022-06-19 14:53] LABS: Add Urine Microscopic? YES
[2022-06-19 16:53] LABS: Glucose Point of Care 88 mg/dl (65-105)
[2022-06-19 18:32] VITALS: BP 112/76; PULSE 89; RESP 20; TEMP 36.6; O2SAT 98
[2022-06-19] MEDS: cefTRIAXone 2 GM/NS 100 ML 2 GM/100 ML BAG IVPB (20:33)
[2022-06-19] MEDS: MIRTAZAPINE 7.5 MG TABLET PO (20:33)
[2022-06-19 20:42] LABS: Glucose Point of Care 80 mg/dl (65-105)
[2022-06-19 21:48] VITALS: BP 127/87; PULSE 98; RESP 14; TEMP 37.4; O2SAT 95
[2022-06-20] MEDS: FUROSEMIDE INJ 40 MG/4 ML VIAL 20 MG IV PUSH ×3 (01:17→18:42)
[2022-06-20 05:02] VITALS: BP 98/61; PULSE 102; RESP 14; TEMP 37.5; O2SAT 97
[2022-06-20] MEDS: SILVERGEL (ELTA) 45 ML 1 APPLIC TOPICAL (05:57)
[2022-06-20 06:03] LABS: Hematocrit 27.7 % (37.0-47.0); Hemoglobin 8.1 g/dL (12.0-15.0); Immature Platelet Fraction Pct 9.7 % (0.9-11.2); Mean Corpuscular HGB Conc 29.2 g/dl (32-36); Mean Corpuscular Hemoglobin 23.5 pg (26-34); Mean Corpuscular Volume 80.3 fl (80-100); Platelet Count Result 149 k/mm3 (150-375); Red Blood Count 3.45 M/mm3 (4.2-5.4); Red Cell Distribution Width 27.3 % (11.5-14.5); White Blood Count 18.7 K/mm3 (4.5-10.0)
[2022-06-20 06:14] LABS: Alanine Aminotransferase 21 U/L (6-35); Albumin Level 2.6 g/dL (3.5-5.1); Alkaline Phosphatase 162 U/L (38-126); Anion Gap 14 mmol/L (8-16); Aspartate Amino Transferase 108 U/L (14-36); Bilirubin,Total 11.2 mg/dL (0.2-1.3); Blood Urea Nitrogen 19 mg/dL (7-17); Calcium 7.6 mg/dL (8.4-10.2); Carbon Dioxide 15 mmol/L (22-30); Chloride 109 mmol/L (98-107); Estimated CRCL calculation 24 ml/min; Estimated Glomerular Filt Rate 20; Glucose 79 mg/dL (65-110); Phosphorus 2.2 mg/dL (2.5-4.5); Potassium 3.2 mmol/L (3.4-5.0); Sodium 138 mmol/L (137-145)
[2022-06-20 08:23] LABS: Glucose Point of Care 85 mg/dl (65-105)
[2022-06-20] MEDS: ALBUMIN HUMAN 25% 12.5 GM/50ML 50 ML IVPB ×3 (09:23→23:33)
[2022-06-20] MEDS: FERROUS SULFATE 324 MG TABLET PO (09:24)
[2022-06-20] MEDS: PANTOPRAZOLE SODIUM IV 40 MG VIAL IV PUSH ×2 (09:24→21:07)
[2022-06-20] MEDS: EUCERIN CREAM 120 GM JAR 1 APPLIC TOPICAL (09:25)
[2022-06-20] MEDS: TOLNAFTATE 1% POWDER 45 GM BTL 1 APPLIC TOPICAL ×2 (09:25→17:22)
[2022-06-20] MEDS: FLUTICASONE PROPIONATE 0.05% NA SPR 16 GM BTL (*BKC) 1 SPRAY NASAL (09:25)
[2022-06-20] MEDS: APIXABAN 5 MG TABLET PO ×2 (09:26→17:22)
[2022-06-20] MEDS: LINEZOLID 600 MG/300 ML 600 MG/300 ML SOLN 300 MG IVPB ×2 (09:27→21:07)
[2022-06-20] MEDS: polyethylene glycoL 3350 17 GM POWD.PACK PO (09:31)
--- NOTE | 2022-06-20 09:50 | P.PNNP_ITS ---
Progress Note: A&P Assessment and Plan (1) BETHEL (acute kidney injury): Code(s): N17.9 - Acute kidney failure, unspecified Status: Acute Assessment and Plan: * acute kidney injury * baseline creatinine ~ 0.6 - 1.0mg/dl about a month ago * however, a reading of 2.7mg/dl noted in early May 2022 (lab error?) * evaluation to date: * renal ultrasound okay * urine electrolytes prerenal [(due to volume depletion versus liver physiology) despite evidence of fluid overload] * UA suggestive of UTI * urine eosinophils negative * CPK low * probable pre renal azotemia. * she has VRE in the urine. I added linezolid. This may be contributing to the renal issues. * Echo is okay. * Albumin was only 1.0 at one point but this was probably false because it was above 2 before and after that day. * Liver issues are possible as well. She has diffuse hepatic steatosis, elevated bilirubin, elevated liver enzymes. * She is getting diuretics . Yesterday the nurse called me because she had a Purewick and not much urine was coming out. Bladder scan showed over 200cc. So I had her place a Pride catheter. The urine was dark brown and eventually turned bloody after the catheter was placed. most likely the dark brown urine is a result of ATN from the VRE E and the blood is from the catheter. * I agree with Dr. Dyson that an element of ATN may be playing a role. This is probably due to the VRE As well. * She has some swelling. intake and output are negative mildly. Will not push this too hard. Continue the same diuretics for now and see if her renal function improved with antibiotics. * follow trend of repeat labs and UOP (2) Anasarca: Code(s): R60.1 - Generalized edema Status: Acute Assessment and Plan: * as noted by exam * renal and liver dysfunction as well as hypoalbuminemia likely to blame * no evidence of nephrotic syndrome/proteinuria * heart function is okay * started IV albumin chased by IV diuretics * Will follow exam check a chest x-ray the see if there is pulmonary edema. She is not on any oxygen. (3) Hepatic steatosis: Code(s): K76.0 - Fatty (change of) liver, not elsewhere classified Status: Chronic Assessment and Plan: * testing/imaging noted * GI following with recommendations noted * continue to follow (4) Nausea & vomiting: Qualifiers: Vomiting type: unspecified Qualified Code(s): R11.2 - Nausea with vomiting, unspecified Code(s): R11.2 - Nausea with vomiting, unspecified Status: Acute Assessment and Plan: * on PPI and prn antiemetics * aspiration precautions * follow symptoms (5) Elevated LFTs: Code(s): R79.89 - Other specified abnormal findings of blood chemistry Status: Acute Assessment and Plan: * Elevated liver enzymes related to #2 versus hepatic steatosis or both. * GI following * follow trend Subjective Date/time seen: 06/20/22 09:50 Interval history: Not much verbal interaction. Resting comfortably in bed. Exam Narrative: General: ill appearing female in NAD Heart: normal S1 and S2; no rub or gallop Lungs: coarse and decreased at bases with a few crackles noted Abdomen: soft, nontender, nondistended, positive bowel sounds Extremities: no cyanosis or clubbing; 2+ edema (anasarca) Skin: No rash or subcu nodules Objective Data Vital Signs Vital Signs:
--- NOTE | 2022-06-20 09:50 | PM.PNNEP ---
Progress Note: A&P Assessment and Plan (1) BETHEL (acute kidney injury): Code(s): N17.9 - Acute kidney failure, unspecified Status: Acute Assessment and Plan: acute kidney injury baseline creatinine ~ 0.6 - 1.0mg/dl about a month ago however, a reading of 2.7mg/dl noted in early May 2022 (lab error?) evaluation to date: renal ultrasound okay urine electrolytes prerenal [(due to volume depletion versus liver physiology) despite evidence of fluid overload] UA suggestive of UTI urine eosinophils negative CPK low probable pre renal azotemia. she has VRE in the urine. I added linezolid. This may be contributing to the renal issues. Echo is okay. Albumin was only 1.0 at one point but this was probably false because it was above 2 before and after that day. Liver issues are possible as well. She has diffuse hepatic steatosis, elevated bilirubin, elevated liver enzymes. She is getting diuretics . Yesterday the nurse called me because she had a Purewick and not much urine was coming out. Bladder scan showed over 200cc. So I had her place a Pride catheter. The urine was dark brown and eventually turned bloody after the catheter was placed. most likely the dark brown urine is a result of ATN from the VRE E and the blood is from the catheter. I agree with Dr. Dyson that an element of ATN may be playing a role. This is probably due to the VRE As well. She has some swelling. intake and output are negative mildly. Will not push this too hard. Continue the same diuretics for now and see if her renal function improved with antibiotics. follow trend of repeat labs and UOP (2) Anasarca: Code(s): R60.1 - Generalized edema Status: Acute Assessment and Plan: as noted by exam renal and liver dysfunction as well as hypoalbuminemia likely to blame no evidence of nephrotic syndrome/proteinuria heart function is okay started IV albumin chased by IV diuretics Will follow exam check a chest x-ray the see if there is pulmonary edema. She is not on any oxygen. (3) Hepatic steatosis: Code(s): K76.0 - Fatty (change of) liver, not elsewhere classified Status: Chronic Assessment and Plan: testing/imaging noted GI following with recommendations noted continue to follow (4) Nausea & vomiting: Qualifiers: Vomiting type: unspecified Qualified Code(s): R11.2 - Nausea with vomiting, unspecified Code(s): R11.2 - Nausea with vomiting, unspecified Status: Acute Assessment and Plan: on PPI and prn antiemetics aspiration precautions follow symptoms (5) Elevated LFTs: Code(s): R79.89 - Other specified abnormal findings of blood chemistry Status: Acute Assessment and Plan: Elevated liver enzymes related to #2 versus hepatic steatosis or both. GI following follow trend Subjective Date/time seen: 06/20/22 09:50 Interval history: Not much verbal interaction. Resting comfortably in bed. Exam Narrative: General: ill appearing female in NAD Heart: normal S1 and S2; no rub or gallop Lungs: coarse and decreased at bases with a few crackles noted Abdomen: soft, nontender, nondistended, positive bowel sounds Extremities: no cyanosis or clubbing; 2+ edema (anasarca) Skin: No rash or subcu nodules Objective Data Vital Signs Vital Signs: Vital Signs - 24 hr 06/19/22 10:10 06/19/22 14:46 06/19/22 18:32 Temperature 96.9 F L 97.8 F Pulse Rate 99 89 Respiratory Rate 20 20 Blood Pressure 107/64 110/64 112/76 Pulse Oximetry 95 98 06/19/22 21:48 06/20/22 05:02 Temperature 99.3 F 99.5 F Pulse Rate 98 102 H Respiratory Rate 14 14 Blood Pressure 127/87 98/61 L Pulse Oximetry 95 97 Intake/Output Intake/Output: Intake & Output 06/17/22 06/18/22 06/19/22 06/20/22 23:59 23:59 23:59 23:59 Intake Total 2680 360 380 50 Output Total 100 550 700 6
--- NOTE | 2022-06-20 10:46 | PM.IMPN ---
Progress Note: A&P Assessment and Plan (1) Hepatic steatosis: Code(s): K76.0 - Fatty (change of) liver, not elsewhere classified Status: Chronic Assessment and Plan: LFTs getting worse - etiology unclear Review of recent hospitalization with [facility] showed hepatic echogenicity concerning for hepatic steatosis on prior retroperitoneal ultrasound from 05/20/2022. abdominal ultrasound shows diffuse hepatic steatosis, absent gallbladder (the patient reported she did not think she had prior cholecystectomy when asked during assessment) and common bile duct is not dilated. GI consulted and appreciate recommendations. hepatitis panel negative. CT chest abdomen and pelvis does not show acute abdominal infection and redemonstrates demonstrates diffuse hepatic steatosis. EBV/CMV pending (2) BETHEL (acute kidney injury): Code(s): N17.9 - Acute kidney failure, unspecified Status: Acute Assessment and Plan: Likely prerenal from vomiting and poor oral intake. FENA suggest prerenal etiology. Could have a component of ATN. Patient has been receiving IV fluids but she appears to have generalized anasarca. hold IV fluids for now. try albumin with Lasix to reduce fluid overload Nephrology consulted. appreciate recommendations (3) Leukocytosis: Qualifiers: Leukocytosis type: bandemia Qualified Code(s): D72.825 - Bandemia Code(s): D72.829 - Elevated white blood cell count, unspecified Status: Acute Assessment and Plan: Patient growing VRE in her urine. Started on linezolid. We will discontinue IV Rocephin (4) Dysphagia: Qualifiers: Dysphagia type: unspecified Qualified Code(s): R13.10 - Dysphagia, unspecified Code(s): R13.10 - Dysphagia, unspecified Status: Acute Assessment and Plan: c/o dysphagia on admission with previous history. Speech therapy consulted. patient was made NPO after bedside swallow. Modified barium swallow and patient had laryngeal penetration with thin liquids. Changed to pureed/nectar thick diet. Aspiration precautions (5) Abnormal finding on urinalysis: Code(s): R82.90 - Unspecified abnormal findings in urine Status: Ruled-out Assessment and Plan: UA concerning for UTI Urine culture without growth. Blood cultures negative to date. continue IV Rocephin (6) Sjogrens syndrome: Qualifiers: Sjogren organ or system involvement: unspecified organ involvement Qualified Code(s): M35.00 - Sjogren syndrome, unspecified Code(s): M35.00 - Sjogren syndrome, unspecified Status: Chronic Assessment and Plan: Chronic. To be aware. Continue supportive care. (7) Generalized anxiety disorder: Code(s): F41.1 - Generalized anxiety disorder Status: Chronic Assessment and Plan: Continue home meds (8) Gastro-esophageal reflux disease without esophagitis: Code(s): K21.9 - Gastro-esophageal reflux disease without esophagitis Status: Chronic Assessment and Plan: on PPI therapy (9) Chronic hyponatremia: Code(s): E87.1 - Hypo-osmolality and hyponatremia Status: Chronic Assessment and Plan: Monitor sodium level. Appears sodium fluctuates 127 to 134 Plan need goals of care discussion with family Prognosis guarded. I called patient's and son this morning respectively but was not able to get either one of them on the phone. Need to have continued goals of care discussion. customer solutions coordinator consulted for palliative care discussion Subjective Date/time seen: 06/20/22 10:46 Interval history: Patient is not responding to verbal commands. Review of Systems Review of Systems: ROS unobtainable: Yes unobtainable due to medical condition and unobtainable due to mental status Exam Narrative: General: Morbidly obese older adult female lying in bed. Chronically ill-appearing Mental Statu
[2022-06-20 11:53] LABS: Glucose Point of Care 116 mg/dl (65-105)
[2022-06-20 12:03] VITALS: BP 144/86; PULSE 101; RESP 14; O2SAT 94
[2022-06-20 15:22] VITALS: BP 94/42; PULSE 88; RESP 16; TEMP 35.6; O2SAT 92
[2022-06-20 17:09] LABS: Glucose Point of Care 87 mg/dl (65-105)
[2022-06-20 18:43] VITALS: BP 129/53; PULSE 14; RESP 97; O2SAT 94
--- NOTE | 2022-06-20 19:54 | PC.NURSE ---
06/20/22 Dr. Zhang explained he attempted to call pt family about plan of care. Stated he wants to discuss with family about starting palliative care or possible transfer to another hospital for higher level of care. I did explain to his son of the plan for [facility] and stated he will try to call tomorrow.
[2022-06-20 21:02] VITALS: BP 107/65; PULSE 99; RESP 12; TEMP 37.6; O2SAT 96
[2022-06-20 21:20] LABS: Glucose Point of Care 88 mg/dl (65-105)
[2022-06-21] MEDS: FUROSEMIDE INJ 40 MG/4 ML VIAL 20 MG IV PUSH (01:00)
[2022-06-21 04:39] VITALS: BP 114/59; PULSE 102; RESP 16; TEMP 36.6; O2SAT 95
[2022-06-21 05:39] LABS: Hematocrit 27.6 % (37.0-47.0); Hemoglobin 8.1 g/dL (12.0-15.0); Immature Platelet Fraction Pct 10.9 % (0.9-11.2); Mean Corpuscular HGB Conc 29.3 g/dl (32-36); Mean Corpuscular Hemoglobin 23.4 pg (26-34); Mean Corpuscular Volume 79.8 fl (80-100); Platelet Count Result 146 k/mm3 (150-375); Red Blood Count 3.46 M/mm3 (4.2-5.4); Red Cell Distribution Width 27.6 % (11.5-14.5); White Blood Count 18.9 K/mm3 (4.5-10.0)
[2022-06-21 05:51] LABS: Alanine Aminotransferase 21 U/L (6-35); Albumin Level 2.6 g/dL (3.5-5.1); Alkaline Phosphatase 169 U/L (38-126); Anion Gap 15 mmol/L (8-16); Aspartate Amino Transferase 105 U/L (14-36); Bilirubin,Total 12.8 mg/dL (0.2-1.3); Blood Urea Nitrogen 21 mg/dL (7-17); Calcium 7.7 mg/dL (8.4-10.2); Carbon Dioxide 15 mmol/L (22-30); Chloride 108 mmol/L (98-107); Estimated CRCL calculation 19 ml/min; Estimated Glomerular Filt Rate 15; Glucose 96 mg/dL (65-110); Phosphorus 2.4 mg/dL (2.5-4.5); Sodium 138 mmol/L (137-145)
[2022-06-21 08:17] LABS: Glucose Point of Care 107 mg/dl (65-105)
[2022-06-21] MEDS: APIXABAN 5 MG TABLET PO ×2 (09:37→16:31)
[2022-06-21] MEDS: LINEZOLID 600 MG/300 ML 600 MG/300 ML SOLN 300 MG IVPB ×2 (09:37→20:18)
[2022-06-21] MEDS: FERROUS SULFATE 324 MG TABLET PO (09:37)
[2022-06-21] MEDS: FLUTICASONE PROPIONATE 0.05% NA SPR 16 GM BTL (*BKC) 1 SPRAY NASAL (09:37)
[2022-06-21] MEDS: TOLNAFTATE 1% POWDER 45 GM BTL 1 APPLIC TOPICAL ×2 (09:38→16:29)
[2022-06-21] MEDS: PANTOPRAZOLE SODIUM IV 40 MG VIAL IV PUSH ×2 (09:38→20:18)
[2022-06-21] MEDS: SILVERGEL (ELTA) 45 ML 1 APPLIC TOPICAL (09:38)
[2022-06-21] MEDS: EUCERIN CREAM 120 GM JAR 1 APPLIC TOPICAL (09:38)
[2022-06-21] MEDS: polyethylene glycoL 3350 17 GM POWD.PACK PO (09:42)
--- NOTE | 2022-06-21 10:16 | PM.PNNEP ---
Progress Note: A&P Assessment and Plan (1) BETHEL (acute kidney injury): Code(s): N17.9 - Acute kidney failure, unspecified Status: Acute Assessment and Plan: baseline creatinine ~ 0.6 - 1.0mg/dl about a month ago however, a reading of 2.7mg/dl noted in early May 2022 (lab error?) evaluation to date: renal ultrasound okay urine electrolytes prerenal [(due to volume depletion versus liver physiology) despite evidence of fluid overload] urine culture with VRE urine eosinophils negative CPK low Echo okay liver issues are likely playing a role as well -- has diffuse hepatic steatosis, elevated bilirubin, elevated liver enzymes suspect she may also have an element of ATN (possibly from the VRE UTI) since renal function worsening, will pause the IV albumin and IV diuretics she remains at risk for needing CTRS/dialysis... follow trend of repeat labs and UOP (2) Anasarca: Code(s): R60.1 - Generalized edema Status: Acute Assessment and Plan: as noted by exam renal and liver dysfunction as well as hypoalbuminemia likely to blame no evidence of nephrotic syndrome/proteinuria heart function is okay no real significant improvement with IV albumin chased by IV diuretics follow respiratory status closely as well (3) Hepatic steatosis: Code(s): K76.0 - Fatty (change of) liver, not elsewhere classified Status: Chronic Assessment and Plan: testing/imaging noted GI following with recommendations noted continue to follow (4) Nausea & vomiting: Qualifiers: Vomiting type: unspecified Qualified Code(s): R11.2 - Nausea with vomiting, unspecified Code(s): R11.2 - Nausea with vomiting, unspecified Status: Acute Assessment and Plan: on PPI and prn antiemetics aspiration precautions follow symptoms (5) Elevated LFTs: Code(s): R79.89 - Other specified abnormal findings of blood chemistry Status: Acute Assessment and Plan: elevated liver enzymes related to #2 versus hepatic steatosis or both. GI following follow trend Long and extensive discussion (> 25 minutes) with patient's by phone regarding her renal dysfunction, rising LFTs, worsening mental status...etc. and my concerns that she may need renal replacement therapy/dialysis if she runs into further issues with volume overload, metabolic acidosis, and/or uremia. Will continue to follow. Subjective Date/time seen: 06/21/22 10:06 Interval history: Follow-up for acute kidney injury/acute renal failure. Chart reviewed since last seen -- despite IV albumin + IV lasix, no real significant improvement in urine output or renal function; more concerning, her LFTs are getting worse as well; not very responsive at the time of my visit; discussed case with son at bedside as well as by phone earlier today. Exam Narrative: General: ill appearing female in NAD Heart: normal S1 and S2; no rub or gallop Lungs: coarse and decreased at bases with a few crackles noted Abdomen: soft, nontender, nondistended, positive bowel sounds Extremities: no cyanosis or clubbing; 2+ edema (anasarca) Skin: warm and dry Objective Data Vital Signs Vital Signs: Vital Signs Temp Pulse Resp BP Pulse Ox O2 Del Method 06/21/22 08:45 Room Air 06/21/22 04:39 97.9 F 102 H 16 114/59 L 95 06/20/22 21:02 99.6 F 99 12 107/65 96 06/20/22 18:43 14 L 97 H 129/53 L 94 06/20/22 15:22 96.1 F L 88 16 94/42 L 92 Intake/Output Intake/Output: Intake & Output 06/18/22 06/19/22 06/20/22 06/21/22 23:59 23:59 23:59 23:59 Intake Total 360 380 950 350 Output Total 550 700 800 100 Balance -190 -320 150 250 Meds/Results Medications: Active Medications Generic Name Dose Route Start Last Admin Trade Name Freq PRN Reason Stop Dose Admin Acetaminophen 650 mg 06/15/22 10:24 06/17/22 09:06 Ac
--- NOTE | 2022-06-21 10:16 | P.PNNP_ITS ---
Progress Note: A&P Assessment and Plan (1) BETHEL (acute kidney injury): Code(s): N17.9 - Acute kidney failure, unspecified Status: Acute Assessment and Plan: * baseline creatinine ~ 0.6 - 1.0mg/dl about a month ago * however, a reading of 2.7mg/dl noted in early May 2022 (lab error?) * evaluation to date: * renal ultrasound okay * urine electrolytes prerenal [(due to volume depletion versus liver physiology) despite evidence of fluid overload] * urine culture with VRE * urine eosinophils negative * CPK low * Echo okay * liver issues are likely playing a role as well -- has diffuse hepatic steatosis, elevated bilirubin, elevated liver enzymes * suspect she may also have an element of ATN (possibly from the VRE UTI) * since renal function worsening, will pause the IV albumin and IV diuretics * she remains at risk for needing [facility]/dialysis... * follow trend of repeat labs and UOP (2) Anasarca: Code(s): R60.1 - Generalized edema Status: Acute Assessment and Plan: * as noted by exam * renal and liver dysfunction as well as hypoalbuminemia likely to blame * no evidence of nephrotic syndrome/proteinuria * heart function is okay * no real significant improvement with IV albumin chased by IV diuretics * follow respiratory status closely as well (3) Hepatic steatosis: Code(s): K76.0 - Fatty (change of) liver, not elsewhere classified Status: Chronic Assessment and Plan: * testing/imaging noted * GI following with recommendations noted * continue to follow (4) Nausea & vomiting: Qualifiers: Vomiting type: unspecified Qualified Code(s): R11.2 - Nausea with vomiting, unspecified Code(s): R11.2 - Nausea with vomiting, unspecified Status: Acute Assessment and Plan: * on PPI and prn antiemetics * aspiration precautions * follow symptoms (5) Elevated LFTs: Code(s): R79.89 - Other specified abnormal findings of blood chemistry Status: Acute Assessment and Plan: * elevated liver enzymes related to #2 versus hepatic steatosis or both. * GI following * follow trend Long and extensive discussion (> 25 minutes) with patient's by phone regarding her renal dysfunction, rising LFTs, worsening mental status...etc. and my concerns that she may need renal replacement therapy/dialysis if she runs into further issues with volume overload, metabolic acidosis, and/or uremia. Will continue to follow. Subjective Date/time seen: 06/21/22 10:06 Interval history: Follow-up for acute kidney injury/acute renal failure. Chart reviewed since last seen -- despite IV albumin + IV lasix, no real significant improvement in urine output or renal function; more concerning, her LFTs are getting worse as well; not very responsive at the time of my visit; discussed case with son at bedside as well as by phone earlier today. Exam Narrative: General: ill appearing female in NAD Heart: normal S1 and S2; no rub or gallop Lungs: coarse and decreased at bases with a few crackles noted Abdomen: soft, nontender, nondistended, positive bowel sounds Extremities: no cyanosis or clubbing; 2+ edema (anasarca) Skin: warm and dry Objective Data Vital Signs Vital Signs: Vital Signs Temp Pulse Resp BP Pulse Ox O2 Del Method 06/21/22 08:45 Room Air 06/21/22
[2022-06-21 12:00] LABS: Glucose Point of Care 107 mg/dl (65-105)
--- NOTE | 2022-06-21 12:24 | PM.IMPN ---
Progress Note: A&P Assessment and Plan (1) Hepatic steatosis: Code(s): K76.0 - Fatty (change of) liver, not elsewhere classified Status: Chronic Assessment and Plan: LFTs getting worse - etiology unclear Review of recent hospitalization with [facility] showed hepatic echogenicity concerning for hepatic steatosis on prior retroperitoneal ultrasound from 05/20/2022. abdominal ultrasound shows diffuse hepatic steatosis, absent gallbladder (the patient reported she did not think she had prior cholecystectomy when asked during assessment) and common bile duct is not dilated. GI consulted and appreciate recommendations. hepatitis panel negative. CT chest abdomen and pelvis does not show acute abdominal infection and redemonstrates demonstrates diffuse hepatic steatosis. EBV/CMV pending (2) BETHEL (acute kidney injury): Code(s): N17.9 - Acute kidney failure, unspecified Status: Acute Assessment and Plan: Likely prerenal from vomiting and poor oral intake. FENA suggest prerenal etiology. Could have a component of ATN. Patient has been receiving IV fluids but she appears to have generalized anasarca. hold IV fluids for now. Nephrology consulted. appreciate recommendations (3) Leukocytosis: Qualifiers: Leukocytosis type: bandemia Qualified Code(s): D72.825 - Bandemia Code(s): D72.829 - Elevated white blood cell count, unspecified Status: Acute Assessment and Plan: Patient growing VRE in her urine. Started on linezolid. (4) Dysphagia: Qualifiers: Dysphagia type: unspecified Qualified Code(s): R13.10 - Dysphagia, unspecified Code(s): R13.10 - Dysphagia, unspecified Status: Acute Assessment and Plan: c/o dysphagia on admission with previous history. Speech therapy consulted. patient was made NPO after bedside swallow. Modified barium swallow and patient had laryngeal penetration with thin liquids. Changed to pureed/nectar thick diet. Aspiration precautions (5) Abnormal finding on urinalysis: Code(s): R82.90 - Unspecified abnormal findings in urine Status: Ruled-out Assessment and Plan: UA concerning for UTI VRE UTI (6) Sjogrens syndrome: Qualifiers: Sjogren organ or system involvement: unspecified organ involvement Qualified Code(s): M35.00 - Sjogren syndrome, unspecified Code(s): M35.00 - Sjogren syndrome, unspecified Status: Chronic Assessment and Plan: Chronic. To be aware. Continue supportive care. (7) Generalized anxiety disorder: Code(s): F41.1 - Generalized anxiety disorder Status: Chronic Assessment and Plan: Continue home meds (8) Gastro-esophageal reflux disease without esophagitis: Code(s): K21.9 - Gastro-esophageal reflux disease without esophagitis Status: Chronic Assessment and Plan: on PPI therapy (9) Chronic hyponatremia: Code(s): E87.1 - Hypo-osmolality and hyponatremia Status: Chronic Assessment and Plan: Monitor sodium level. Appears sodium fluctuates 127 to 134 Plan Subjective Date/time seen: 06/21/22 12:24 Interval history: Patient is not responding to verbal commands. Poor prognosis - Family discussion about code status Review of Systems Review of Systems: Much the same encephalopathic Exam Narrative: General: Morbidly obese older adult female lying in bed. Chronically ill-appearing Skin: Jaundice. Generalized, pruritic lacy rash to face and arms. Warm, and dry. HEENT: Normocephalic. Atraumatic. 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 Oral mucosa pink and moist. Neck: Obese. No lymphadenopathy Heart: S1 and S2 regular rate and rhythm. No murmurs, gallops, or rubs auscultated. Chest: Respirations even and unlabored. Lung sounds diminished to bibasilar lobes with fine crackles l
--- NOTE | 2022-06-21 13:08 | PCNFU ---
Nutrition Follow-Up Complete: Increased protein energy needs related to inadequate oral intake, increased needs from wounds as evidenced by 0-5% intakes, wound reports. Goal: Improve PO intake to at least 50% meals and supplements for wound healing support Tolerate appropriate diet texture and liquid consistency Pt current nutrition is Pureed, Level 4/Mild Thick Level 2. Last recorded weight is 114.6 kg. Bowel Motility: +BM reported 06/20 Labs Reviewed:Cr 3.0, BUN 21, K 3.0, Alb 2.6,Hct 27.6, Hgb 8.1 Meds Noted:Eliquis, Protonix, Miralax Skin: Stage IV Pressure Ulcer reported. Additional Notes: Patient is lethargic. Unable to eat at this time. Oral intake over the weekend was reported of bites from a spoon. Spoke with nursing today-all oral supplements have been changed to ensure pudding and nutritional ice cream and feed with spoon if patient is able to tolerate. Zana BID continues for wound healing mixed in applesauce. Discussions regarding palliative care. Agree with diet orders. Monitoring intakes, swallowing ability, wound healing, labs, weights every 3 days.
[2022-06-21 13:13] LABS: EBV Nuclear Ab Interpretation Past; EBV Virus Capsid Ag IgM Ab <36.00 U/mL (<36.00)
[2022-06-21 14:05] VITALS: BP 96/48; PULSE 103; RESP 24; TEMP 36.5; O2SAT 93
[2022-06-21 14:24] LABS: CMV IgM Antibody <30.00 AU/mL (<30.00)
--- NOTE | 2022-06-21 14:54 | WPDGIPROGNO ---
Progress Note: A&P Assessment and Plan (1) Jaundice: Code(s): R17 - Unspecified jaundice Status: Acute Assessment and Plan: liver imaging reviewed and normal biliary system, she does not have gallbladder hepatitis panel negative wonder if drug induced (apparently she developed rash after an antibiotic during recent hospitalization- now with cholestatic pattern), also systemic disease, etc serology for EBV and CMV still pending (mono, hiv negative, son denies history of alcohol use), pending work up other chronic liver conditions persistent jaundice - bilirubin today is 9.6 up slightly from yesterday. 06/21/2022 bilirubin gradually increasing, 12.8 today (2) Hepatic steatosis: Code(s): K76.0 - Fatty (change of) liver, not elsewhere classified Status: Chronic Assessment and Plan: - Fatty liver is the working diagnosis for her liver impairment, however other studies and serologies are pending (3) Elevated LFTs: Code(s): R79.89 - Other specified abnormal findings of blood chemistry Status: Acute Assessment and Plan: awaiting results of serologies such as anti mitochondrial antibodies AST is slowly coming down. ALT is normal. (4) Nausea and vomiting in adult: Code(s): R11.2 - Nausea with vomiting, unspecified Status: Acute Assessment and Plan: she cannot give any clear answers today. 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 Exam Const: General: ill appearing chronically Nutritional Appearance: obese Other: laying in bed, obese, anasarca HENMT: Face/Nose/Sinus: Normal nares present Eyes: Other: blind and eyes are closed Neck: Neck: supple Resp: Auscultation: no wheezes and diminished lung sounds Cardio: Rate: regular rate GI: Inspection: normal to inspection and obesity GI Palp: No abdominal tenderness, Yes No hepatosplenomegaly present, No Palpable mass present and No Ascites present Auscultation: normal bowel sounds Skin: General skin exam: jaundice Other: jaundice Neuro: Other: sleepy, arousable Extrem: Other: diffuse edema in legs and arms, previous surgery in ankle Psych: Affect: Anxious affect present Objective Data Vital Signs Vital Signs: Vital Signs - 24 hr 06/20/22 15:22 06/20/22 18:43 06/20/22 21:02 Temperature 35.6 C L 37.6 C Pulse Rate 88 14 L 99 Respiratory Rate 16 97 H 12 Blood Pressure 94/42 L 129/53 L 107/65 Pulse Oximetry 92 94 96 Oxygen Delivery 06/21/22 04:39 06/21/22 08:45 06/21/22 14:05 Temperature 36.6 C 36.5 C Pulse Rate 102 H 103 H Respiratory Rate 16 24 H Blood Pressure 114/59 L 96/48 L Pulse Oximetry 95 93 Oxygen Delivery Room Air Intake/Output Intake/Output: Intake & Output 06/18/22 06/19/22 06/20/22 06/21/22 23:59 23:59 23:59 23:59 Intake Total 360 380 950 350 Output Total 550 700 800 100 Balance -190 -320 150 250 Meds/Results Medications: Active Medications Generic Name Dose Route Start Last Admin Trade Name Freq PRN Reason Stop Dose Admin Acetaminophen 650 mg 06/15/22 10:24 06/17/22 09:06 Acetaminophen 325 Mg Tablet PO 650 mg Q8HR PRN Administration Mild Pain (1-3) or Fever Apixaban 5 mg 06/12/22 21:30 06/21/22 09:37 Apixaban 5 Mg Tablet PO 5 mg BID DAYSI Administration Cholestyramine Resin 4 gm 06/15/22 11:35 06/21/22 11:59 Cholestyramine (W/ Sugar) 4 Gm Powd.Pack PO Not Given QAM@1100 [facility] Dextrose 12.5 gm 06/15/22 10:37 Dextrose 50% 25 Gm/50 Ml Syringe IV PUSH PRN PRN Hypoglycemia Protocol Ferrous Sulfate 324 mg 06/14/22 08:00 06/21/22 09:37
--- NOTE | 2022-06-21 15:25 | PCSTNOTE ---
The patient treatment was not able to be completed on 06/21 due to RN reporting patient not awake enough to take in much breakfast. As she has not had a treatment for a week (last Tuesday) due to decreased arousal, therapist will discuss discharge with hospitalist.
[2022-06-21 15:43] LABS: Ceruloplasmin 29 mg/dL (18-53)
[2022-06-21 17:14] LABS: Glucose Point of Care 89 mg/dl (65-105)
[2022-06-21 22:11] VITALS: BP 133/76; PULSE 108; RESP 16; TEMP 36.2; O2SAT 94
[2022-06-22 00:11] LABS: Glucose Point of Care 82 mg/dl (65-105)
[2022-06-22 05:29] LABS: Alanine Aminotransferase 21 U/L (6-35); Albumin Level 2.5 g/dL (3.5-5.1); Alkaline Phosphatase 160 U/L (38-126); Anion Gap 16 mmol/L (8-16); Aspartate Amino Transferase 111 U/L (14-36); Blood Urea Nitrogen 24 mg/dL (7-17); Calcium 7.6 mg/dL (8.4-10.2); Carbon Dioxide 15 mmol/L (22-30); Chloride 107 mmol/L (98-107); Estimated CRCL calculation 14 ml/min; Estimated Glomerular Filt Rate 11; Glucose 80 mg/dL (65-110); Phosphorus 3.1 mg/dL (2.5-4.5); Potassium 3.2 mmol/L (3.4-5.0); Sodium 138 mmol/L (137-145)
[2022-06-22 06:00] VITALS: BP 103/48; PULSE 118; RESP 16; TEMP 36.2; O2SAT 94
[2022-06-22 07:41] LABS: Glucose Point of Care 76 mg/dl (65-105)
[2022-06-22] MEDS: APIXABAN 5 MG TABLET PO (08:28)
[2022-06-22] MEDS: polyethylene glycoL 3350 17 GM POWD.PACK PO (08:28)
[2022-06-22] MEDS: FERROUS SULFATE 324 MG TABLET PO (08:28)
[2022-06-22] MEDS: EUCERIN CREAM 120 GM JAR 1 APPLIC TOPICAL (08:29)
[2022-06-22] MEDS: SILVERGEL (ELTA) 45 ML 1 APPLIC TOPICAL (08:29)
[2022-06-22] MEDS: FLUTICASONE PROPIONATE 0.05% NA SPR 16 GM BTL (*BKC) 1 SPRAY NASAL (08:29)
[2022-06-22] MEDS: PANTOPRAZOLE SODIUM IV 40 MG VIAL IV PUSH (08:29)
[2022-06-22] MEDS: TOLNAFTATE 1% POWDER 45 GM BTL 1 APPLIC TOPICAL (08:29)
[2022-06-22] MEDS: LINEZOLID 600 MG/300 ML 600 MG/300 ML SOLN 300 MG IVPB (08:29)
--- NOTE | 2022-06-22 08:58 | PCSTNOTE ---
Patient was seen this morning at and after breakfast. She was somewhat upright in bed. Patient was noted to cough after swallowing some oatmeal prior to my arrival. She was later given pudding with crushed medicines by the nurse and sips of thickened milk by the nursing faculty; no additional coughing was noted. Patient took very little overall and was slow to respond most of the time. Discharge from Speech Therapy is recommended as patient is unable to participate effectively in direct Speech Therapy tasks. Dr. Stroud was notified and in agreement with request to discharge.
[2022-06-22 11:35] LABS: Glucose Point of Care 94 mg/dl (65-105)
[2022-06-22] MEDS: MORPHINE SULFATE (*CRX) 2 MG/ML INJ IV PUSH (11:44)
--- NOTE | 2022-06-22 12:57 | PC.NURSE ---
pt to be transferred in to inpatient hospice care with [facility] hospice, will discharge and readmit with new visit number per policy
[2022-06-22 21:24] LABS: Mitochondrial (M2) Ab (IgG) <=20.0 U (<=20.0)
[2022-06-23 16:12] LABS: Chloride Rand Ur 21 mmol/L (32-290); Chloride/Creatinine Rand Ur 11 (38-318); Creatinine Random Urine 198 mg/dL (20-275)
[2022-06-24 13:25] LABS: Anti Nuclear Antibody Pattern Nuclear, Speckled
[2022-06-28 01:57] LABS: Creatinine, Random Urine 203 mg/dL (20-275); Total Protein/Creatinine Ratio 734 mg/g creat (24-184)
--- NOTE | 2022-07-17 15:31 | PM.DS ---
DS: Admitting Diagnosis Discharge Date 06/22/22 Admitting Diagnosis Uncontrolled dyspnea and discomfort DS: Discharge Diagnosis Discharge Diagnosis (1) Hepatic steatosis: Code(s): K76.0 - Fatty (change of) liver, not elsewhere classified Status: Chronic Assessment and Plan: LFTs getting worse - etiology unclear Review of recent hospitalization with [facility] showed hepatic echogenicity concerning for hepatic steatosis on prior retroperitoneal ultrasound from 05/20/2022. abdominal ultrasound shows diffuse hepatic steatosis, absent gallbladder (the patient reported she did not think she had prior cholecystectomy when asked during assessment) and common bile duct is not dilated. GI consulted and appreciate recommendations. hepatitis panel negative. CT chest abdomen and pelvis does not show acute abdominal infection and redemonstrates demonstrates diffuse hepatic steatosis. EBV/CMV pending (2) BETHEL (acute kidney injury): Code(s): N17.9 - Acute kidney failure, unspecified Status: Acute Assessment and Plan: Likely prerenal from vomiting and poor oral intake. FENA suggest prerenal etiology. Could have a component of ATN. Patient has been receiving IV fluids but she appears to have generalized anasarca. hold IV fluids for now. Nephrology consulted. appreciate recommendations (3) Leukocytosis: Qualifiers: Leukocytosis type: bandemia Qualified Code(s): D72.825 - Bandemia Code(s): D72.829 - Elevated white blood cell count, unspecified Status: Acute Assessment and Plan: Patient growing VRE in her urine. Started on linezolid. (4) Dysphagia: Qualifiers: Dysphagia type: unspecified Qualified Code(s): R13.10 - Dysphagia, unspecified Code(s): R13.10 - Dysphagia, unspecified Status: Acute Assessment and Plan: c/o dysphagia on admission with previous history. Speech therapy consulted. patient was made NPO after bedside swallow. Modified barium swallow and patient had laryngeal penetration with thin liquids. Changed to pureed/nectar thick diet. Aspiration precautions (5) Abnormal finding on urinalysis: Code(s): R82.90 - Unspecified abnormal findings in urine Status: Ruled-out Assessment and Plan: UA concerning for UTI VRE UTI (6) Sjogrens syndrome: Qualifiers: Sjogren organ or system involvement: unspecified organ involvement Qualified Code(s): M35.00 - Sjogren syndrome, unspecified Code(s): M35.00 - Sjogren syndrome, unspecified Status: Chronic Assessment and Plan: Chronic. To be aware. Continue supportive care. (7) Generalized anxiety disorder: Code(s): F41.1 - Generalized anxiety disorder Status: Chronic Assessment and Plan: Continue home meds (8) Gastro-esophageal reflux disease without esophagitis: Code(s): K21.9 - Gastro-esophageal reflux disease without esophagitis Status: Chronic Assessment and Plan: on PPI therapy (9) Chronic hyponatremia: Code(s): E87.1 - Hypo-osmolality and hyponatremia Status: Chronic Assessment and Plan: Monitor sodium level. Appears sodium fluctuates 127 to 134 DS: Summary Hospital Course Hospital Course: This unfortunate 76-year-old female intermediate resident was brought to the emergency department on June 12 due to intractable nausea vomiting.? She was found to have leukocytes in her urine and was treated empirically for a urinary tract infection.? She had acute kidney injury.? She was found to have VRE in her urine and was treated with appropriate antibiotics for that.? However she continued to worsen with worsening renal function creatinine increased to 4.0 and worsening leukocytosis with white count increasing 18.9 K. Hemoglobin was at 8.1? And bilirubin 15.0.? INR 1.4..? She has a history of chronic anemia legal blindness diastolic dysfunction, hepatic st
--- NOTE | 2022-07-19 22:09 | PM.DS ---
DS: Admitting Diagnosis Discharge Date 06/22/22 Admitting Diagnosis Uncontrolled dyspnea and discomfort DS: Discharge Diagnosis Discharge Diagnosis (1) Hepatic steatosis: Code(s): K76.0 - Fatty (change of) liver, not elsewhere classified Status: Chronic Assessment and Plan: LFTs? getting worse -? etiology unclear Review of recent hospitalization with [facility] showed hepatic echogenicity concerning for hepatic steatosis on prior retroperitoneal ultrasound from 05/20/2022.? abdominal ultrasound shows diffuse hepatic steatosis, absent gallbladder (the patient reported she did not think she had prior cholecystectomy when asked during assessment) and common bile duct is not dilated. GI consulted and appreciate recommendations.? hepatitis panel negative.? CT chest abdomen and pelvis does not show acute abdominal infection and redemonstrates demonstrates diffuse hepatic steatosis. EBV/CMV pending Pt changed to comfort car (2) BETHEL (acute kidney injury): Code(s): N17.9 - Acute kidney failure, unspecified Status: Acute (3) Leukocytosis: Qualifiers: Leukocytosis type: bandemia Qualified Code(s): D72.825 - Bandemia Code(s): D72.829 - Elevated white blood cell count, unspecified Status: Acute Assessment and Plan: Patient growing VRE in her urine.? Pt changed to comfort care (4) Dysphagia: Qualifiers: Dysphagia type: unspecified Qualified Code(s): R13.10 - Dysphagia, unspecified Code(s): R13.10 - Dysphagia, unspecified Status: Acute Assessment and Plan: c/o dysphagia on admission with previous history. Speech therapy consulted. patient was made NPO after bedside swallow. Modified barium swallow and patient had laryngeal penetration with thin liquids. Changed to pureed/nectar thick diet. Aspiration precautions (5) Abnormal finding on urinalysis: Code(s): R82.90 - Unspecified abnormal findings in urine Status: Ruled-out (6) Sjogrens syndrome: Qualifiers: Sjogren organ or system involvement: unspecified organ involvement Qualified Code(s): M35.00 - Sjogren syndrome, unspecified Code(s): M35.00 - Sjogren syndrome, unspecified Status: Chronic (7) Generalized anxiety disorder: Code(s): F41.1 - Generalized anxiety disorder Status: Chronic (8) Gastro-esophageal reflux disease without esophagitis: Code(s): K21.9 - Gastro-esophageal reflux disease without esophagitis Status: Chronic (9) Chronic hyponatremia: Code(s): E87.1 - Hypo-osmolality and hyponatremia Status: Chronic DS: Summary Hospital Course Hospital Course: This unfortunate 76-year-old female residential resident was brought to the emergency department on June 12 due to intractable nausea vomiting.? She was found to have leukocytes in her urine and was treated empirically for a urinary tract infection.? She had acute kidney injury.? She was found to have VRE in her urine and was treated with appropriate antibiotics for that.? However she continued to worsen with worsening renal function creatinine increased to 4.0 and worsening leukocytosis with white count increasing 18.9 K. Hemoglobin was at 8.1? And bilirubin 15.0.? INR 1.4..? She has a history of chronic anemia legal blindness diastolic dysfunction, hepatic steatosis, and hypertension. ? Because of her worsened clinical status and DNR wishes her family opted for comfort care with hospice inpatient.Patient is not responding to verbal commands. Poor prognosis - Pt is DNR status Pt changed to comfort care today Estevan updated about pts decline Time Spent with Patient Time attestation: Total time spent providing and/or coordinating discharge services:40 minutes on the day of DC Exam Narrative: General: Pt looks somnolent Skin:? Jaundice. tired less responsive much decline? HEENT: Normocephalic.? Atraumatic.? Legally blind and patient does not ope
== END 2022-06-22 12:57 | disposition hospice, inpatient (51) | DRG 689 ==
LOC: ANHED 13:20 → ANH2MED 16:17
PROVIDERS: Hospitalist; Internal Medicine Gastroenterology; Internal Medicine Nephrology; Nurse Practitioner Family; Student in an Organized Health Care Education/Training Program; Admitting Provider Internal Medicine; Emergency Provider Emergency Medicine; PCP Family Medicine Adolescent Medicine; Visit Provider Family Medicine
DX: N10 Acute pyelonephritis (principal); J69.0 Pneumonitis due to inhalation of food and vomit; E87.1 Hypo-osmolality and hyponatremia; Z68.41 Body mass index [BMI] 40.0-44.9, adult; I50.30 Unspecified diastolic (congestive) heart failure; Z16.21 Resistance to vancomycin; N17.9 Acute kidney failure, unspecified; B95.2 Enterococcus as the cause of diseases classified elsewhere; I11.0 Hypertensive heart disease with heart failure; Z20.822 Contact with and (suspected) exposure to COVID-19; K76.0 Fatty (change of) liver, not elsewhere classified; K21.9 Gastro-esophageal reflux disease without esophagitis; J43.9 Emphysema, unspecified; E66.01 Morbid (severe) obesity due to excess calories; H54.8 Legal blindness, as defined in USA; R13.10 Dysphagia, unspecified; M35.00 Sjogren syndrome, unspecified; F41.1 Generalized anxiety disorder; D50.9 Iron deficiency anemia, unspecified; Z66 Do not resuscitate; Z86.711 Personal history of pulmonary embolism; Z90.49 Acquired absence of other specified parts of digestive tract; Z79.01 Long term (current) use of anticoagulants
CPT/HCPCS: 36415; 71045; 71250; 74176; 76705; 76775; 80053; 80074; 81001; 81050; 82248; 82274; 82390; 82436; 82550; 82570; 82607; 82728; 82746; 82948; 83010; 83036; 83520; 83540; 83550; 83615; 84100; 84145; 84156; 84166; 84300; 84439; 84443; 84540; 85025; 85027; 85046; 85055; 85610; 85730; 85999; 86038; 86039; 86140; 86308; 86645; 86664; 86665; 86703; 87040; 87081; 87086; 87147; 87181; 87186; 87637; 92526; 92610; 92611; 93970; 96365; 96366; 96367; 96375; 96376; 99285; A9270; C9113; G0378; G0432; J0692; J0696; J0780; J1940; J1956; J2020; J2060; J2270; J2405; J3370; J7030; J7121; P9047

== ENCOUNTER 2022-06-22 12:56 | HOS | payer OTHER, MEDICARE, SELFPAY ==
--- NOTE | 2022-06-22 13:17 | PC.NURSE ---
Transferred into inpatient hospice. Being followed by Alfredo.
--- NOTE | 2022-06-22 13:32 | PM.IMPN ---
Progress Note: A&P Assessment and Plan (1) Hepatic steatosis: Code(s): K76.0 - Fatty (change of) liver, not elsewhere classified Status: Chronic Assessment and Plan: LFTs getting worse - etiology unclear Review of recent hospitalization with [facility] showed hepatic echogenicity concerning for hepatic steatosis on prior retroperitoneal ultrasound from 05/20/2022. abdominal ultrasound shows diffuse hepatic steatosis, absent gallbladder (the patient reported she did not think she had prior cholecystectomy when asked during assessment) and common bile duct is not dilated. GI consulted and appreciate recommendations. hepatitis panel negative. CT chest abdomen and pelvis does not show acute abdominal infection and redemonstrates demonstrates diffuse hepatic steatosis. EBV/CMV pending Pt changed to comfort care (2) BETHEL (acute kidney injury): Code(s): N17.9 - Acute kidney failure, unspecified Status: Acute Assessment and Plan: Likely prerenal from vomiting and poor oral intake. FENA suggest prerenal etiology. Could have a component of ATN. Patient has been receiving IV fluids but she appears to have generalized anasarca. Pt changed to comfort care (3) Leukocytosis: Qualifiers: Leukocytosis type: bandemia Qualified Code(s): D72.825 - Bandemia Code(s): D72.829 - Elevated white blood cell count, unspecified Status: Acute Assessment and Plan: Patient growing VRE in her urine. Pt changed to comfort care (4) Dysphagia: Qualifiers: Dysphagia type: unspecified Qualified Code(s): R13.10 - Dysphagia, unspecified Code(s): R13.10 - Dysphagia, unspecified Status: Acute Assessment and Plan: c/o dysphagia on admission with previous history. Speech therapy consulted. patient was made NPO after bedside swallow. Modified barium swallow and patient had laryngeal penetration with thin liquids. Changed to pureed/nectar thick diet. Aspiration precautions (5) Abnormal finding on urinalysis: Code(s): R82.90 - Unspecified abnormal findings in urine Status: Ruled-out Assessment and Plan: UA concerning for UTI VRE UTI (6) Sjogrens syndrome: Qualifiers: Sjogren organ or system involvement: unspecified organ involvement Qualified Code(s): M35.00 - Sjogren syndrome, unspecified Code(s): M35.00 - Sjogren syndrome, unspecified Status: Chronic Assessment and Plan: Chronic. To be aware. Continue supportive care. (7) Generalized anxiety disorder: Code(s): F41.1 - Generalized anxiety disorder Status: Chronic Assessment and Plan: Continue home meds (8) Gastro-esophageal reflux disease without esophagitis: Code(s): K21.9 - Gastro-esophageal reflux disease without esophagitis Status: Chronic Assessment and Plan: on PPI therapy (9) Chronic hyponatremia: Code(s): E87.1 - Hypo-osmolality and hyponatremia Status: Chronic Assessment and Plan: Monitor sodium level. Plan Pt is declining poor prognosis Pt changed to DNR with comfort measures Hospice team consulted Son and father aware of pts poor condition Subjective Date/time seen: 06/22/22 13:32 Interval history: Patient is not responding to verbal commands. Poor prognosis - Pt is DNR status Pt changed to comfort care today Estevan updated about pts decline Review of Systems Review of Systems: Somnolent Exam Narrative: General: Pt looks somnolent Skin: Jaundice. tired less responsive much decline HEENT: Normocephalic. Atraumatic. 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 Oral mucosa pink and moist. Neck: Obese. No lymphadenopathy Heart: S1 and S2 regular rate and rhythm. No murmurs, gallops, or rubs auscultated. Chest: Respirations even and unlabored. Lung sounds di
[2022-06-22 13:36] VITALS: BMI 41.5
[2022-06-22] MEDS: HYDROmorphone HCL/PF (*CRX) 50 MG in SODIUM CHLORIDE 0.9% IV 95 ML IV CONT (15:30)
--- NOTE | 2022-06-22 20:38 | PM.IMHP ---
H&P: HPI History of Present Illness Date/Time: 06/22/22 20:38 Chief Complaint: Uncontrolled dyspnea and discomfort Narrative: This unfortunate 76-year-old female longterm resident was brought to the emergency department on June 12 due to intractable nausea vomiting. She was found to have leukocytes in her urine and was treated empirically for a urinary tract infection. She had acute kidney injury. She was found to have VRE in her urine and was treated with appropriate antibiotics for that. However she continued to worsen with worsening renal function creatinine increased to 4.0 and worsening leukocytosis with white count increasing 18.9 K. Hemoglobin was at 8.1 And bilirubin 15.0. INR 1.4.. She has a history of chronic anemia legal blindness diastolic dysfunction, hepatic steatosis, and hypertension. Because of her worsened clinical status and DNR wishes her family opted for comfort care with hospice inpatient. Review of Systems Review of Systems: ROS unobtainable: Yes unobtainable due to medical condition PMFSH Past Medical History Medical History Anasarca Aortic atherosclerosis CT 01/26 Chronic hyponatremia Congenital ectodermal dysplasia Diastolic dysfunction (02/2020) Disability Dysphagia Exposed orthopaedic hardware 05/17/22 I&D MSSA and Group B strep Generalized anxiety disorder Hepatic steatosis History of gastroesophageal reflux (GERD) History of pulmonary embolism (09/2020) Jaundice Legally blind [facility] (current) use of anticoagulants MALT lymphoma Monoclonal gammopathy of unknown significance (MGUS) Nausea and vomiting in adult Obesity Sjogrens syndrome Spondylosis of lumbosacral region Thoracic compression fracture Venous insufficiency Surgical History Surgical History History of ankle surgery S/P cholecystectomy Family History Family History Other Unknown family medical history Social History Social History Smoking status: Never smoker Alcohol intake: former Substance use: current Substance use type: marijuana Lack of Transportation: No Lack of Food: Never True Current Housing: I Do Not Have Housing Concerned About Future Housing: No Difficulty Paying Gas/Electric Bills: No Difficulty Paying for Meds: No Currently Unemployed: No Education: Don't Know Difficulty w/ Childcare or Family Care: No Gender identity (if verbalized by the patient): Female Spiritual care concerns: No Meds Home Medications and Allergies Home Medications Medication Instructions Recorded Confirmed Type fluticasone propionate 50 50 mcg intranasal DAILY 05/08/21 06/12/22 History mcg/actuation nasal spray,suspension Marijuana Oral Eadible 1 tab-cap PO DAILY 05/09/21 06/12/22 History acetaminophen 650 mg tablet 650 mg PO Q6H PRN Pain 05/09/21 06/12/22 History alendronate 70 mg tablet 70 mg PO WEEKLY 05/09/21 06/12/22 History diphenhydramine 12.5 mg-PE 5 20 ml PO BID PRN Cough 05/09/21 06/12/22 History mg-acetaminophen 325 mg/10 mL oral liquid (Mucinex Fast-Max Nite Cold-Flu) diphenhydramine HCl 25 mg capsule 25 mg PO BID PRN nasal drip 05/09/21 06/12/22 History (Benadryl) ibuprofen 200 mg tablet 200 mg PO BID 05/09/21 06/12/22 History polyethylene glycol 3350 17 gram 17 g PO DAILY PRN Constipation 05/09/21 06/12/22 History oral powder packet (Miralax) simethicone 125 mg capsule See Rx Instructions .Route .COMPLEX 05/09/21 06/12/22 History lorazepam 0.5 mg tablet 1 mg PO BID PRN anxiety #120 tabs 01/12/22 06/12/22 Rx metoprolol tartrate 50 mg tablet 50 mg PO BID #60 tabs 02/05/22 06/12/22 Rx apixaban 5 mg tablet (Eliquis) 5 mg PO BID #60 tabs 02/25/22 06/12/22 Rx furosemide 40 mg tablet 40 mg PO QAM #30 tabs 05/12/22 06/12/22 Rx tramadol 50
[2022-06-22 21:04] VITALS: BP 61/39; PULSE 105; RESP 9; TEMP 36.5; O2SAT 73
[2022-06-22] MEDS: ARTIFICIAL TEARS OPHTH SOLN 15 ML BOTTLE 1 DROP EACH EYE (21:59)
--- NOTE | 2022-06-23 11:03 | PM.DDS ---
Discharge Summary Date and Time Date of : 06/23/22 Time of : 03:30 Provider Pronounced By: Fabiola Ponce Probable Cause of Probable Cause of : acute kidney failure Summary Hospital Course: Admitted to inpatient hospice due to uncontrolled dyspnea and discomfort. Medications titrated to comfort. Mrs. Hernandez peacefully. Additional Data Confirmation of as documented by pronouncing clinician: Pupillary Reflex, Palpable Pulses, Response to Stimuli, Heart Tones and Breath Sounds Name of Provider Notified: Gideon Garnett Provider Notified: 03:40 Provider Requests Autopsy: No Family Requests Autopsy: No Emulsification Operator Notified: Yes Date [facility] Notified of : 06/23/22 Time [facility] Notified of : 03:53
== END 2022-06-23 03:30 | disposition expired | DRG 951 ==
PROVIDERS: Admitting Provider Internal Medicine; PCP Family Medicine Adolescent Medicine; Visit Provider Internal Medicine
DX: Z51.5 Encounter for palliative care (principal); N17.9 Acute kidney failure, unspecified; N10 Acute pyelonephritis; E87.1 Hypo-osmolality and hyponatremia; Z68.41 Body mass index [BMI] 40.0-44.9, adult; K76.0 Fatty (change of) liver, not elsewhere classified; H54.8 Legal blindness, as defined in USA; K21.9 Gastro-esophageal reflux disease without esophagitis; I10 Essential (primary) hypertension; F41.1 Generalized anxiety disorder; R13.10 Dysphagia, unspecified; I51.89 Other ill-defined heart diseases; D64.9 Anemia, unspecified; Z66 Do not resuscitate; M35.00 Sjogren syndrome, unspecified; E66.9 Obesity, unspecified; M47.817 Spondylosis without myelopathy or radiculopathy, lumbosacral region; Z86.711 Personal history of pulmonary embolism; Z90.49 Acquired absence of other specified parts of digestive tract
CPT/HCPCS: A9270; J1170